=== PATIENT | female | born 1930 | race Caucasian/White ===

== ENCOUNTER 2017-02-16 12:48 | Inpatient (IN) | payer MEDICARE ==
[2017-02-16] MEDS ORDERED: Sodium Chloride 0.9% 10 ML Syringe FLUSH PRN (12:58)
[2017-02-16] MEDS ORDERED: Albuterol/Ipratropium 3.0-0.5 MG/3 ML Neb Soln NEB ONE (12:58)
[2017-02-16] MEDS ORDERED: Lactated Ringers 1,000 ML IV ONE (13:10)
--- NOTE | 2017-02-16 13:17 | EDM.PDOC ---
<TyrelLucila F - Last Filed: 02/16/17 14:13> ED HPI GENERAL MEDICAL PROBLEM - General Chief Complaint: Respiratory Problem Stated Complaint: [facility] Time Seen by Provider: 02/16/17 12:50 Source of Information: Reports: Patient History Limitations: Reports: No Limitations - History of Present Illness INITIAL COMMENTS - FREE TEXT/NARRATIVE: 86 year old female presents via [facility] ambulance service for evaluation and treatment of shortness of breath. Patient is unable to provide any reliable history. She is currently denying any pain. Grimaces and expresses pain with movement, reportedly has a history of RA. Reportedly the patient resides at [facility] [place]. States she has been having difficulty breathing since this morning. They appreciated 2+ pitting edema and crackles to the bilateral lung bases. No fevers, vomiting or diarrhea. Ambulance gave 40mg IV lasix and oxygen via mask at 8L/min. Per group home report temp was 93 there. Patient is a DNR, DNI. Treatments FACILITY SECURITY OFFICER: Reports: IV/IO - Related Data Allergies Allergy/AdvReac Type Severity Reaction Status Date / Time Beta-Blockers Allergy Cannot Verified 02/16/17 12:58 (Beta-Adrenergic Bloc Remember NSAIDS (Non-Steroidal Allergy Cannot Verified 02/16/17 12:58 Anti-Inflamma Remember nystatin Allergy Cannot Verified 02/16/17 12:58 Remember [id number]-[id number] Reductase Allergy Cannot Verified 02/16/17 12:58 Inhibitor Remember Sulfa (Sulfonamide Allergy Cannot Verified 02/16/17 12:58 Antibiotics) Remember Home Meds: Home Meds Acetaminophen 100 mg PO TID 02/16/17 [History] Fluticasone Propionate [Flonase] 2 spray NASBOTH DAILY 02/16/17 [History] Fluticasone Propionate [Flovent] 02/16/17 [History] Folic Acid 1 mg PO 02/16/17 [History] Furosemide 40 mg PO 02/16/17 [History] Irbesartan 300 mg PO 02/16/17 [History] LORazepam 02/16/17 [History] Latanoprost [Xalatan 0.005% Ophth Soln] 2.5 ml EYEBOTH BEDTIME 02/16/17 [History ] Leflunomide [Arava] 20 mg PO DAILY 02/16/17 [History] Levothyroxine Sodium [Synthroid] 100 mcg PO 02/16/17 [History] Magnesium Hydroxide [Milk of Magnesia] 30 ml PO DAILY 02/16/17 [History] Metoprolol Tartrate 25 mg PO 02/16/17 [History] Multivitamin [Multivitamins] 02/16/17 [History] Omeprazole 20 mg PO DAILY 02/16/17 [History] Potassium Chloride 10 meq PO 02/16/17 [History] Simvastatin [Zocor] 20 mg PO BEDTIME 02/16/17 [History] Spironolactone [Aldactone] 25 mg PO 02/16/17 [History] busPIRone [Buspar] 10 mg PO TID 02/16/17 [History] risperiDONE [Risperdal] 0.5 mg PO 02/16/17 [History] ED ROS GENERAL - Review of Systems Review Of Systems: See Below Constitutional: Denies: Fever Respiratory: Reports: Shortness of Breath, Wheezing Cardiovascular: Reports: Edema GI/Abdominal: Denies: Diarrhea, Vomiting ED EXAM, GENERAL - Physical Exam Exam: See Below Exam Limited By: Altered Mental Status General Appearance: Lethargic, Moderate Distress, Thin Ears: Normal External Exam Nose: Normal Inspection Throat/Mouth: Normal Inspection, Normal Voice, No Airway Compromise Respiratory/Chest: Rhonchi (right lung base), Wheezing Cardiovascular: Normal Peripheral Pulses, Regular Rate, Rhythm, No Murmur, Other (1+ pitting edema bilaterally) Rectal (Female) Exam: Heme + Stool Back Exam: Normal Inspection Extremities: Pedal Edema Skin Exam: Ecchymosis (bilateral thighs and left buttocks) Course - Vital Signs Last Recorded V/S: Last Vital Signs Temp 89.6 F L 02/16/17 12:58 Pulse 60 02/16/17 12:58 Resp 20 02/16/17 12:58 BP 61/45 L 02/16/17 12:58 Pulse Ox 93 L 02/16/17 13:15 - Orders/Labs/Meds Orders: Active Orders 24 hr Category Date Time Status Cardiac Monitoring [RC] . DIRECTED Care 02/16/17 12:58 Active EKG Documentation Completion [RC] ASDIRECTED Care 02/16/17 12:59 Active Oxygen Therapy [RC] ASDIRECTED Care 02/16/17 12:58 Active Peripheral IV Care [RC] . DIRECTED Care 02/16/17 12:59 Active RT Aerosol Therapy [RC] ASDIRECTED Care 02/16/17 12:59 Active Chest 1V Frontal [CR] Stat Exams 02/16/17 12:58 Taken C-REACTIVE PROTEIN [CHEM] Stat Lab 02/16/17 13:45 Results COMPREHENSIVE METABOLIC PN,CMP [CHEM] Stat Lab 02/16/17 13:45 Results CULTURE BLOOD [BC] Stat Lab 02/16/17 13:45 Received CULTURE BLOOD [BC] Stat Lab 02/16/17 14:00 Received LACTIC ACID [CHEM] Stat Lab 02/16/17 13:28 Ordered PATIENT RETYPE [BBK] Stat Lab 02/16/17 14:00 Results PRO B-TYPE NATRIUR PEPT,BNPPRO [CHEM] Stat Lab 02/16/17 13:45 Results RED BLOOD CELLS LP [BBK] Stat Lab 02/16/17 14:00 Results TROPONIN I [CHEM] Stat Lab 02/16/17 13:45 Results TYPE AND SCREEN [BBK] Stat Lab 02/16/17 14:00 Results UA W/MICROSCOPIC [URIN] Stat Lab 02/16/17 15:14 Uncollected Insulin Regular, Human [HumuLIN R] Med 02/16/17 16:00 Active 10 unit SUBCUT BIDAC Norepinephrine [Levophed] 4 mg Med 02/16/17 14:45 Active Dextrose 5% in Water 246 ml IV TITRATE Sodium Chloride 0.9% [Saline Flush] Med 02/16/17 12:58 Active 10 ml FLUSH ASDIRECTED PRN Blood Culture x2 Reflex Set [OM.PC] Stat Oth 02/16/17 13:28 Ordered Peripheral IV Insertion Adult [OM.PC] Routine Oth 02/16/17 12:58 Ordered Transfuse Red Blood Cells [COMM] Stat Oth 02/16/17 14:27 Ordered EKG 12 Lead [EK] Stat Ther 02/16/17 12:58 Ordered Medication Orders Norepinephrine Bitartrate 4 mg (/ Dextrose/Water) 250 mls @ 7.5 mls/hr IV TITRATE DEMETRI; 2 MCG/MIN PRN Reason: Protocol Insulin Human Regular (Humulin R) 10 unit SUBCUT BIDAC DEMETRI PRN Reason: Protocol Last Admin: 02/16/17 15:10 Dose: 10 unit Sodium Chloride (Saline Flush) 10 ml FLUSH ASDIRECTED PRN PRN Reason: Keep Vein Open Last Admin: 02/16/17 13:29 Dose: 10 ml Labs: Laboratory Tests 02/16/17 02/16/17 02/16/17 Range/Units 13:45 13:45 14:00 WBC 14.93 H (3.98-10.04) K/mm3 RBC 2.64 L (3.98-5.22) M/mm3 Hgb 7.9 L (11.2-15.7) gm/L Hct 25.3 L (34.1-44.9) % MCV 95.8 H (79.4-94.8) fl MCH 29.9 (25.6-32.2) pg MCHC 31.2 L (32.2-35.5) g/dl RDW Std Deviation 54.6 H (36.4-46.3) fL Plt Count 119 L (182-369) K/mm3 MPV 9.6 (9.4-12.3) fl Neutrophils % (Manual) 90 H (40-60) % Band Neutrophils % 1 (0-10) % Lymphocytes % (Manual) 4 L (20-40) % Atypical Lymphs % 0 % Monocytes % (Manual) 5 (2-10) % Eosinophils % (Manual) 0 L (0.7-5.8) % Basophils % (Manual) 0 L (0.1-1.2) Platelet Estimate Decreased Plt Morphology Comment Normal Poikilocytosis 1+ slight Anisocytosis 2+ moderate Microcytosis 1+ slight Macrocytosis 1+ slight Ovalocytes 1+ slight RBC Morph Comment Abnormal PT 12.6 (8.0-13.0) SECONDS INR 1.15 APTT 43 H (22-36) SECONDS Sodium 141 (136-145) mEq/L Potassium 6.6 H* (3.5-5.1) mEq/L Chloride 109 H (98-107) mEq/L Carbon Dioxide 14 L (21-32) mEq/L Anion Gap 24.6 H (5-15) BUN 111 H (7-18) mg/dL Creatinine 3.6 H (0.55-1.02) mg/dL Est Cr Clr Drug Dosing 8.31 mL/min Estimated GFR (MDRD) 12 (>60) mL/min BUN/Creatinine Ratio 30.8 H (14-18) Glucose 103 (83-115) mg/dL Calcium 7.6 L (8.5-10.1) mg/dL Total Bilirubin 0.3 (0.2-1.0) mg/dL AST 21 (15-37) U/L ALT 26 (14-59) U/L Alkaline Phosphatase 92 (46-116) U/L Troponin I < 0.017 (0.00-0.056) ng/mL C-Reactive Protein 4.7 H* (<1.0) mg/dL Total Protein 5.1 L (6.4-8.2) g/dl Albumin 2.3 L (3.4-5.0) g/dl Globulin 2.8 gm/dL Albumin/Globulin Ratio 0.8 L (1-2) Blood Type Gel Antibody Screen Crossmatch 02/16/17 Range/Units 14:00 WBC (3.98-10.04) K/mm3 RBC (3.98-5.22) M/mm3 Hgb (11.2-15.7) gm/L Hct (34.1-44.9) % MCV (79.4-94.8) fl MCH (25.6-32.2) pg MCHC (32.2-35.5) g/dl RDW Std Deviation (36.4-46.3) fL Plt Count (182-369) K/mm3 MPV (9.4-12.3) fl Neutrophils % (Manual) (40-60) % Band Neutrophils % (0-10) % Lymphocytes % (Manual) (20-40) % Atypical Lymphs % % Monocytes % (Manual) (2-10) % Eosinophils % (Manual) (0.7-5.8) % Basophils % (Manual) (0.1-1.2) Platelet Estimate Plt Morphology Comment Poikilocytosis Anisocytosis Microcytosis Macrocytosis Ovalocytes RBC Morph Comment PT (8.0-13.0) SECONDS INR APTT (22-36) SECONDS Sodium (136-145) mEq/L Potassium (3.5-5.1) mEq/L Chloride (98-107) mEq/L Carbon Dioxide (21-32) mEq/L Anion Gap (5-15) BUN (7-18) mg/dL Creatinine (0.55-1.02) mg/dL Est Cr Clr Drug Dosing mL/min Estimated GFR (MDRD) (>60) mL/min BUN/Creatinine Ratio (14-18) Glucose (83-115) mg/dL Calcium (8.5-10.1) mg/dL Total Bilirubin (0.2-1.0) mg/dL AST (15-37) U/L ALT (14-59) U/L Alkaline Phosphatase (46-116) U/L Troponin I (0.00-0.056) ng/mL C-Reactive Protein (<1.0) mg/dL Total Protein (6.4-8.2) g/dl Albumin (3.4-5.0) g/dl Globulin gm/dL Albumin/Globulin Ratio (1-2) Blood Type O NEGATIVE Gel Antibody Screen Negative Crossmatch See Detail Meds: Medications Generic Name Dose Route Start Last Admin Trade Name Freq PRN Reason Stop Dose Admin Norepinephrine Bitartrate 4 mg 250 mls @ 7.5 mls/hr 02/16/17 14:45 / Dextrose/Water IV TITRATE DEMETRI Protocol 2 MCG/MIN Insulin Human Regular 10 unit 02/16/17 16:00 02/16/17 15:10 Humulin R SUBCUT 10 unit BIDAC DEMETRI Administration Protocol Sodium Chloride 10 ml 02/16/17 12:58 02/16/17 13:29 Saline Flush FLUSH 10 ml ASDIRECTED PRN Administration Keep Vein Open Discontinued Medications Generic Name Dose Route Start Last Admin Trade Name Freq PRN Reason Stop Dose Admin Albuterol/Ipratropium 3 ml 02/16/17 12:58 02/16/17 13:15 Duoneb 3.0-0.5 Mg/3 Ml NEB 02/16/17 12:59 3 ml ONETIME ONE Administration Calcium Gluconate 1 gm 02/16/17 14:45 02/16/17 15:17 Calcium Gluconate IVPUSH 02/16/17 14:46 1 gm ONETIME ONE Administration Dextrose/Water 50 ml 02/16/17 14:44 02/16/17 15:12 Dextrose 50% In Water IVPUSH 02/16/17 14:45 50 ml ONETIME ONE Administration Lactated Ringer's 1,000 mls @ 999 mls/hr 02/16/17 13:10 02/16/17 13:29 Ringers, Lactated IV 02/16/17 14:10 999 mls/hr .BOLUS ONE Administration Sodium Chloride 750 mls @ 1,000 mls/hr 02/16/17 13:31 Normal Saline IV 02/16/17 14:15 .BOLUS ONE Levofloxacin/Dextrose 750 mg/ 150 mls @ 100 mls/hr 02/16/17 13:55 02/16/17 14 :11 Premix IV 02/16/17 15:24 100 mls/hr ONETIME ONE Administration Sodium Chloride Confirm 02/16/17 14:06 Normal Saline Administered 02/16/17 14:07 Dose 1,000 mls @ as directed .ROUTE .STK-MED ONE Levofloxacin/Dextrose Confirm 02/16/17 14:07 Levaquin In D5w 750 Mg/150 Ml Administered 02/16/17 14:08 Dose 150 mls @ as directed IV .STK-MED ONE Sodium Chloride Confirm 02/16/17 15:27 Normal Saline Administered 02/16/17 15:28 Dose 1,000 mls @ as directed .ROUTE .STK-MED ONE - Re-Assessments/Exams Free Text/Narrative Re-Assessment/Exam: 02/16/17 14:00 Patient is critically ill. Care transferred to Dr. Hung. Departure - Departure Disposition: Admitted As Inpatient 65 Clinical Impression: Septic shock, Hyperkalemia Pneumonia Qualifiers: Pneumonia type: due to unspecified organism Laterality: right Lung location: middle lobe of lung Qualified Code(s): J18.1 - Lobar pneumonia, unspecified organism Hypotension Qualifiers: Hypotension type: unspecified hypotension type Qualified Code(s): I95.9 - Hypotension, unspecified Anemia Qualifiers: Anemia type: other cause Other causes of anemia: other cause, not classified Qualified Code(s): D64.89 - Other specified anemias Renal failure Qualifiers: Renal failure chronicity: acute Acute renal failure type: unspecified Qualified Code(s): N17.9 - Acute kidney failure, unspecified - Discharge Information Referrals: Osorio Walden MD [Primary Care Provider] - Forms: ED Department Discharge - My Orders Last 24 Hours: My Active Orders 02/16/17 14:00 PATIENT RETYPE [BBK] Stat RED BLOOD CELLS LP [BBK] Stat TYPE AND SCREEN [BBK] Stat 02/16/17 14:27 Transfuse Red Blood Cells [COMM] Stat 02/16/17 14:45 Norepinephrine [Levophed] 4 mg Dextrose 5% in Water 246 ml IV TITRATE 02/16/17 15:14 UA W/MICROSCOPIC [URIN] Stat 02/16/17 16:00 Insulin Regular, Human [HumuLIN R] 10 unit SUBCUT BIDAC - Assessment/Plan Last 24 Hours: My Active Orders 02/16/17 14:00 PATIENT RETYPE [BBK] Stat RED BLOOD CELLS LP [BBK] Stat TYPE AND SCREEN [BBK] Stat 02/16/17 14:27 Transfuse Red Blood Cells [COMM] Stat 02/16/17 14:45 Norepinephrine [Levophed] 4 mg Dextrose 5% in Water 246 ml IV TITRATE 02/16/17 15:14 UA W/MICROSCOPIC [URIN] Stat 02/16/17 16:00 Insulin Regular, Human [HumuLIN R] 10 unit SUBCUT BIDAC <Anurag Hung - Last Filed: 02/16/17 15:31> Course - Re-Assessments/Exams Free Text/Narrative Re-Assessment/Exam: 02/16/17 15:15 Taking over for Lucila. I ordered a 30mL/kg bolus or 1700mls. She is septic. It appears she has pneumonia in the right lung. Her WBC is elevated at 14.93. Her Hgb was low at 7.9. I have ordered 1 unit of blood. Her PT is elevated at 12.6. Her INR was elevated at 1.15. Her K was elevated at 6.6. She was give a duoneb treatment. I also ordered D50 25mg IV, insulin 10 units subcutaneous and calcium gluconate. She is not alert enough to take the kayexelate. She is in renal failure. Her creatinine is elevated at 3.6. Her troponin is negative. Her CRP is elevated at 4.7. She has pneumonia and sepsis and she is in renal failure with hyperkalemia. 02/16/17 15:26 I feel she needs to be admitted. I called Dr Haynes and he agreed to the admission. I have also ordered some norephinephrin. Her BP went up for a short time and then it went down again. I do not have a urine back but we will get a sample. Departure - Departure Time of Disposition: 15:30 Condition: Serious
[2017-02-16] MEDS ORDERED: Sodium Chloride 0.9% 750 ML IV ONE (13:31)
[2017-02-16] MEDS ORDERED: Levofloxacin/Dextrose 5%-Water 750 MG in Premix Bag 1 BAG IV ONE (13:55)
[2017-02-16] MEDS ORDERED: Sodium Chloride 0.9% 1,000 ML ONE ×2 (14:06→15:27)
[2017-02-16] MEDS ORDERED: Levofloxacin/Dextrose 5%-Water 150 ML IV ONE (14:07)
[2017-02-16] MEDS ORDERED: 50% Dextrose in Water 50 ML Syringe IVPUSH ONE (14:44)
[2017-02-16] MEDS ORDERED: Calcium Gluconate 10% 1 GM/10 ML SDV IVPUSH ONE (14:45)
[2017-02-16] MEDS: Norepinephrine 4 MG in Dextrose 5% in Water 246 ML IV SCH ×2 (15:25)
[2017-02-16] MEDS ORDERED: Sodium Chloride 0.9% 1,000 ML IV SCH (15:30)
[2017-02-16] MEDS ORDERED: Insulin Regular, Human 100 Units/ML 3 ML Vial SUBCUT SCH (16:00)
--- NOTE | 2017-02-16 17:10 | PCM.HP ---
H&P History of Present Illness - General Date of Service: 02/16/17 Source of Information: Patient, Family, Provider, RN, RN Notes Reviewed History Limitations: Reports: Altered Mental Status - History of Present Illness Initial Comments - Free Text/Narative: Johnson Lyles is an 86 yo female who presented to our ED today on 02/16/17 via [facility] from [facility] for shortness of breath. Patient has AMS and is unable to provide any reliable history in the ED, but she denies any pain. She reportedly grimaces and expresses pain with movement. She does have a prior hx/o RA. [facility] reports increasing difficulty with breathing since this AM with 2+ pitting edema and crackles bilaterally in the lung bases. No fever, vomiting, diarrhea. heel caser gave 40mg IVP lasix and started O2 via simple mask at 8L. [facility] reports a temperature of 93. In the ED temp was found to be 89.6 Fahrenheit. Pulse 60. Respirations 20. BP 61/45. Pulse ox 93. Labs were obtained: WC is 14.93. Hemoglobin is low at 7.9. Hematocrit 25.3. MCV is slightly elevated 95.8. Platelets are low at 119 ,000. Neutrophils are elevated at 90%. Band neutrophils are 1%. There is 1+ poikilocytosis, microcytosis, macrocytosis, and ovalocytes. 2+ anisocytosis is noted. PT is 12.6. INR is elevated at 1.15. APTT is high at 43. Sodium is normal at 141. Potassium was very high at 6.6. Chloride is 109. Carbon dioxide is 14. Anion gap is very high at 24.6. BUN is 111. Creatinine is 3.6. EGFR is 12. Glucose 103. Calcium 7.6. Total bilirubin 0.3. Liver enzymes good with AST at 21, ALT at 26, alkaline phosphatase and 92. Troponin is negative at less than 0.017. CRP is high at 4.7. Protein is low at 5.1. Albumin is low at 2.3. Pro-BNP is 2506. She was typed and screened with O- blood type and negative gel antibody screen. She is given a 30 mL/kg bolus or 1700 mL. She is septic. Chest x-ray appears to show pneumonia the right lung. She was given 1 unit of blood. She is given a DuoNeb treatment as well as 25 mg of IV D50. 10 units of subcutaneous insulin and calcium gluconate were given. It is noted she is not alert enough to take Kayexalate. UA shows 1+ protein and many bacteria, however leukocyte esterase and nitrite were negative. There were 0-5 WBCs noted as well. Lactic acid is 1.8. Norepinephrine drip was started as was Levaquin 750 mg in D5W. She was found to have heme positive stool on her ED rectal exam. Blood cultures were also obtained. She carries a history of: Anemia, Hypothyroidism, HLD, Hypokalemia, Dementia, Mild cognitive impairment, Insomnia, glucoma, HTN, CAD, heart failure, GERD, RA , OA, lower back pain, visual hallucinations, lung ca, and TIA. She recently moved into [facility] and was being seen by Dr. Grullon in [place] [employer]. Code status is DNR. Her PCP is Dr. Walden at [facility] in [place]. - Related Data Allergies/Adverse Reactions: Allergies Allergy/AdvReac Type Severity Reaction Status Date / Time Beta-Blockers Allergy Cannot Verified 02/16/17 12:58 (Beta-Adrenergic Bloc Remember NSAIDS (Non-Steroidal Allergy Cannot Verified 02/16/17 12:58 Anti-Inflamma Remember nystatin Allergy Cannot Verified 02/16/17 12:58 Remember Zmvlsoy-Yxu-Vpj Reductase Allergy Cannot Verified 02/16/17 12:58 Inhibitor Remember Sulfa (Sulfonamide Allergy Cannot Verified 02/16/17 12:58 Antibiotics) Remember Home Medications: Home Meds Acetaminophen 100 mg PO TID 02/16/17 [History] Fluticasone Propionate [Flonase] 2 spray NASBOTH DAILY 02/16/17 [History] Folic Acid 1 mg PO DAILY 02/16/17 [History] Furosemide 40 mg PO DAILY 02/16/17 [History] Irbesartan 300 mg PO BEDTIME 02/16/17 [History] LORazepam 0.5 mg PO Q6HR PRN 02/16/17 [History] Latanoprost [Xalatan 0.005% Oph Soln] 1 drop EYEBOTH BEDTIME 02/16/17 [History ] Leflunomide [Arava] 20 mg PO DAILY 02/16/17 [History] Levothyroxine Sodium [Synthroid] 100 mcg PO DAILY 02/16/17 [History] Magnesium Hydroxide [Milk of Magnesia] 15 ml PO DAILY PRN 02/16/17 [History] Metoprolol Tartrate 25 mg PO BID 02/16/17 [History] Multivitamin [Multivitamins] 1 tab PO DAILY 02/16/17 [History] Omeprazole 40 mg PO DAILY 02/16/17 [History] Potassium Chloride 10 meq PO DAILY 02/16/17 [History] Simvastatin [Zocor] 20 mg PO BEDTIME 02/16/17 [History] Spironolactone [Aldactone] 25 mg PO DAILY 02/16/17 [History] busPIRone [Buspar] 10 mg PO TID 02/16/17 [History] risperiDONE [Risperdal] 0.5 mg PO TID 02/16/17 [History] Past Medical History Neurological History: Reports: Alzheimers Disease Social & Family History - Tobacco Use Smoking Status *Q: Unknown Ever Smoked H&P Review of Systems - Review of Systems: Review Of Systems: Unable To Obtain Free Text/Narrative: Patient is demented and unable to provide a reliable history. Exam - Exam Exam: See Below - Vital Signs Vital Signs: Last Vital Signs Temp 96.2 F 02/16/17 16:05 Pulse 90 02/16/17 16:05 Resp 16 02/16/17 16:05 BP 94/77 02/16/17 16:05 Pulse Ox 93 L 02/16/17 13:15 Weight: 125 lb - Exam Quality Assessment: Supplemental Oxygen, Urinary Catheter, DVT Prophylaxis General: Alert, Cooperative, Mild Distress, Lethargic (family reports she is usually more active and alert than she is now. She does respond to my questions. ). No: Oriented HEENT: Conjunctiva Clear, EACs Clear, EOMI, Hearing Intact, Mucosa Moist & [place] , Nares Patent, Normal Nasal Septum, Posterior Pharynx Clear, PERRLA Neck: Supple, Trachea Midline. No: Carotid Bruit, JVD Lungs: Normal Respiratory Effort, Decreased Breath Sounds, Rhonchi (right base ) , Wheezing Cardiovascular: Regular Rate, Regular Rhythm. No: Systolic Murmur, Diastolic Murmur GI/Abdominal Exam: Normal Bowel Sounds, Soft, No Organomegaly, No Distention, No Abnormal Bruit, No Mass, Pelvis Stable, Tender (Grimace on deep palpitaiton to epigastric region) (Female) Exam: Deferred Rectal (Female) Exam: Deferred Extremities: Normal Inspection, Normal Range of Motion, Non-Tender, Normal Capillary Refill, Pedal Edema (trace to 1+) Peripheral Pulses: 1+: Posterior Tibial (L), Posterior Tibial (R), Dorsalis Pedis (L), Dorsalis Pedis (R), 2+: Radial (L), Radial (R) Skin: Warm, Dry, Intact Neurological: Cranial Nerves Intact (Grossly) Neuro Extensive - Mental Status: Alert Psychiatric: Alert - Patient Data Result Diagrams: 02/16/17 14:00 02/16/17 13:45 *Q Meaningful Use (ADM) - VTE *Q VTE Criteria *Q: - Stroke *Q Stroke Criteria *Q: - AMI *Q AMI Criteria *Q: - Problem List (1) Septic shock SNOMED Code(s): 39554755 ICD Code: A41.9 - SEPSIS, UNSPECIFIED ORGANISM; R65.21 - SEVERE SEPSIS WITH SEPTIC SHOCK Status: Acute Priority: High Current Visit: Yes (2) Hyperkalemia SNOMED Code(s): 54390495 ICD Code: E87.5 - HYPERKALEMIA Status: Acute Priority: High Current Visit: Yes (3) Renal failure SNOMED Code(s): 20211758 ICD Code: N19 - UNSPECIFIED KIDNEY FAILURE Status: Acute Priority: High Current Visit: Yes Qualifiers: Renal failure chronicity: acute Acute renal failure type: unspecified Qualified Code(s): N17.9 - Acute kidney failure, unspecified (4) Pneumonia SNOMED Code(s): 063122491 ICD Code: J18.9 - PNEUMONIA, UNSPECIFIED ORGANISM Status: Acute Priority : High Current Visit: Yes Qualifiers: Pneumonia type: due to unspecified organism Laterality: right Lung location: middle lobe of lung Qualified Code(s): J18.1 - Lobar pneumonia, unspecified organism (5) Hypotension SNOMED Code(s): 23748457 ICD Code: I95.9 - HYPOTENSION, UNSPECIFIED Status: Acute Priority: High Current Visit: Yes Qualifiers: Hypotension type: unspecified hypotension type Qualified Code(s): I95.9 - Hypotension, unspecified (6) Anemia SNOMED Code(s): 959256714 ICD Code: D64.9 - ANEMIA, UNSPECIFIED Status: Acute Priority: High Current Visit: Yes Qualifiers: Anemia type: other cause Other causes of anemia: other cause, not classified Qualified Code(s): D64.89 - Other specified anemias (7) Hypothyroidism SNOMED Code(s): 70078160 ICD Code: E03.9 - HYPOTHYROIDISM, UNSPECIFIED Status: Chronic Priority: Low Current Visit: No Qualifiers: Hypothyroidism type: acquired Qualified Code(s): E03.9 - Hypothyroidism, unspecified (8) HLD (hyperlipidemia) SNOMED Code(s): 31524773 ICD Code: E78.5 - HYPERLIPIDEMIA, UNSPECIFIED Status: Chronic Priority: Low Current Visit: No Qualifiers: Hyperlipidemia type: pure hypercholesterolemia Qualified Code(s): E78.00 - Pure hypercholesterolemia, unspecified; E78.0 - Pure hypercholesterolemia (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 SNOMED Code(s): 247171 ICD Code: F10.97 - ALCOHOL USE, UNSP WITH ALCOHOL-INDUCED PERSISTING DEMENTIA Status: Chronic Priority: Low Current Visit: No (10) Mild cognitive impairment SNOMED Code(s): 032462481 ICD Code: G31.84 - MILD COGNITIVE IMPAIRMENT, SO STATED Status: Chronic Priority: Low Current Visit: No (11) Insomnia SNOMED Code(s): 883239312 ICD Code: G47.00 - INSOMNIA, UNSPECIFIED Status: Chronic Priority: Low Current Visit: No Qualifiers: Insomnia type: primary Qualified Code(s): F51.01 - Primary insomnia (12) Glaucoma SNOMED Code(s): 10598879 ICD Code: H40.9 - UNSPECIFIED GLAUCOMA Status: Chronic Priority: Low Current Visit: No Qualifiers: Glaucoma type: unspecified Laterality: unspecified laterality Qualified Code(s): H40.9 - Unspecified glaucoma (13) HTN (hypertension) SNOMED Code(s): 83286295 ICD Code: I10 - ESSENTIAL (PRIMARY) HYPERTENSION Status: Chronic Priority : Low Current Visit: No (14) CAD (coronary artery disease) SNOMED Code(s): 34016712 ICD Code: I25.10 - ATHSCL HEART DISEASE OF [place] CORONARY ARTERY W/O ANG PCTRS Status: Chronic Priority: Low Current Visit: No Qualifiers: Coronary Disease-Associated Artery/Lesion type: [place] artery [place] vs. transplanted heart: [place] heart Associated angina: angina presence unspecified Qualified Code(s): I25.10 - Atherosclerotic heart disease of [place] coronary artery without angina pectoris (15) Heart failure SNOMED Code(s): 49484447 ICD Code: I50.9 - HEART FAILURE, UNSPECIFIED Status: Acute Priority: Medium Current Visit: Yes Qualifiers: Heart failure type: unspecified heart failure type Heart failure chronicity : acute on chronic Qualified Code(s): I50.9 - Heart failure, unspecified (16) GERD (gastroesophageal reflux disease) SNOMED Code(s): 575958369 ICD Code: K21.9 - GASTRO-ESOPHAGEAL REFLUX DISEASE WITHOUT ESOPHAGITIS Status: Chronic Priority: Low Current Visit: No Qualifiers: Esophagitis presence: without esophagitis Qualified Code(s): K21.9 - Gastro -esophageal reflux disease without esophagitis (17) Rheumatoid arteritis SNOMED Code(s): 571391865 ICD Code: I00 - RHEUMATIC FEVER WITHOUT HEART INVOLVEMENT Status: Chronic Priority: Low Current Visit: No (18) Osteoarthritis SNOMED Code(s): 280453633 ICD Code: M19.90 - UNSPECIFIED OSTEOARTHRITIS, UNSPECIFIED SITE Status: Chronic Priority: Low Current Visit: No Qualifiers: Osteoarthritis location: unspecified site Osteoarthritis type: primary Qualified Code(s): M19.91 - Primary osteoarthritis, unspecified site (19) Low back pain SNOMED Code(s): 728994518 ICD Code: M54.5 - LOW BACK PAIN Status: Chronic Priority: Low Current Visit: No Qualifiers: Chronicity: unspecified Back pain laterality: unspecified Sciatica presence: unspecified whether sciatica present Qualified Code(s): M54.5 - Low back pain (20) Visual hallucinations SNOMED Code(s): 09318860 ICD Code: R44.1 - VISUAL HALLUCINATIONS Status: Chronic Priority: Low Current Visit: No Problem List Initiated/Reviewed/Updated: Yes Orders Last 24hrs: Active Orders 24 hr Category Date Time Status Insert Wagner Catheter [Insert Urinary Catheter] [OM.PC] Care 02/16/17 16:28 Ordered Q24H Urinary Catheter Assessment [RC] ASDIRECTED Care 02/16/17 16:37 Active Medication Orders Norepinephrine Bitartrate 4 mg (/ Dextrose/Water) 250 mls @ 7.5 mls/hr IV TITRATE DEMETRI; 2 MCG/MIN PRN Reason: Protocol Last Titration: 02/16/17 16:22 Dose: 4 mcg/min, 15 mls/hr Titration: 02/16/17 15:40 Dose: 3 mcg/min, 11.25 mls/hr Admin: 02/16/17 15:25 Dose: 2 mcg/min, 7.5 mls/hr Insulin Human Regular (Humulin R) 10 unit SUBCUT BIDAC DEMETRI PRN Reason: Protocol Last Admin: 02/16/17 15:10 Dose: 10 unit Sodium Chloride (Saline Flush) 10 ml FLUSH ASDIRECTED PRN PRN Reason: Keep Vein Open Last Admin: 02/16/17 13:29 Dose: 10 ml Assessment/Plan Comment:: I/P: Acute Septic shock -2/2 pneumonia -Hypotensive -Rales in right lower lobe -Hypothermic on arrival -89.6 F rectally -Vero hugger in place -WBC 14.93 -CRP 4.7 -UA negative -INR 1.15 -APTT 43 -Blood cultures - pending -Serum cortisol level - ordered -procalcitonin - ordered -1700 ml fluid bolus in ED -Levaquin 750 given in ED - continue -Vancomycin - pharmacy to dose -Solu-cortif Q6 -Fluids as ordered -NPO -Critical patient - strict I&O -Wagner in place Pneumonia -Increasing SOB reported by [place] and family -Risk factors: Confusion from dementia (? aspiration), Hx/o lung ca with resection, Lives in specialty SNF -CXR in ED shows right middle lobe pneumonia -RT to assess and treat/IS -f/u cxr in 48 hrs -Oxygen as needed - titrate Anion gap metabolic acidosis -2/2 sepsis -Anion gap 24.6 -Carbon Dioxide 14 -Fluids as ordered Hyperkalemia -Potassium 6.6 in ED -1gm calcium gluconate given in ED -10 unit humulin given in ED -1700ml fluid bolus given in ED -45gm Kayexalate rectally now -Given 40mg lasix by EMS crew -Hx/o hypokalemia -Unable to give lasix due to poor renal function Renal failure -Acute on chronic -Unsure of baseline - obtain old records -BUN 111 -Creatinine 3.6 -eGFR 12 -Pharmacy to renally dose medications -Hold nephrotoxic drugs -Fluids -Renal ultrasound to rule out obstructive uropathy -Monitor I&O - wagner in place Hypotension -2/2 above -BP 61/45 on arrival -HR 60 -Fluid bolus given in ED -Fluids as ordered -Norepinephrine drip - titrate per protocol Heart failure -Acute on chronic -Unsure of baseline - obtain old records -Pro-BNP 2506 -Echo ordered -Monitor as aggressive fluid resuscitation is needed 2/2 above Anemia -Acute on chronic -Unsure of baseline - obtain old records -Hgb 7.9 -Hct 25.3 -Heme + stool in ED -INR 1.15 -APTT 43 -No reported hematemesis, melena, hematochezia. -1 unit PRBCs given in ED - will order one more unit -Monitor H&H -Consider surgical consult Chronic: Hypothyroidism HLD Hypokalemia - hyperkalemic today Dementia w/o behavioral disturbance Mild cognitive impairment Insomnia Glaucoma CAD GERD RA Lower back pain OA Visual hallucinations Hx/o TIA Hx/o CA Hx/o lung neoplasm with lobectomy Plan: Admit to ICU CM/SW for discharge planning Spiritual care PT/OT Other orders as indicated above Home medications as ordered Routine AM labs GI Prophylaxis protonix DVT/PE prophylaxis: SCDs, ambulation as tolerated. Code status: DNR. Her PCP is Dr. Walden at [facility]. She recently transferred care from Dr. Grullon in [place] [employer].
[2017-02-16] MEDS ORDERED: Vancomycin 1 GM, Vancomycin 500 MG in Sodium Chloride 0.9% 500 ML IV SCH (18:00)
[2017-02-16] MEDS ORDERED: LORazepam 2 MG/ML SDV IV PRN (18:11)
[2017-02-16] MEDS ORDERED: Ondansetron 4 MG/2 ML SDV IV PRN (18:11)
[2017-02-16] MEDS ORDERED: HYDROmorphone 1 MG/ML Syringe IVPUSH PRN (18:11)
[2017-02-16] MEDS ORDERED: Docusate Sodium 100 MG Cap PO PRN (18:11)
[2017-02-16] MEDS ORDERED: Polyethylene Glycol 3350 Powder 17 GM Packet PO PRN (18:11)
[2017-02-16] MEDS ORDERED: Promethazine 6.25 MG in Sodium Chloride 0.9% 50 ML IV PRN (18:11)
[2017-02-16] MEDS ORDERED: Acetaminophen/HYDROcodone 325-5 MG Tab PO PRN (18:11)
[2017-02-16] MEDS ORDERED: Pantoprazole 40 MG Vial IVPUSH ONE (18:11)
[2017-02-16] MEDS ORDERED: Acetaminophen 325 MG Tab PO PRN (18:11)
[2017-02-16] MEDS ORDERED: Bisacodyl 5 MG Tab PO PRN (18:11)
[2017-02-16] MEDS ORDERED: Sodium Polystyrene Sulfonate 15 GM/60 ML Susp 60 ML Bot RECTAL ONE (18:21)
[2017-02-16] MEDS: Hydrocortisone Sodium Succinate 100 MG/2 ML SDV IVPUSH SCH (18:49)
[2017-02-16] MEDS: Insulin Aspart 100 Units/ML 3 ML Pen SUBCUT SCH (19:06)
[2017-02-16] MEDS: 50% Dextrose in Water 50 ML Syringe IVPUSH PRN ×2 (19:10→22:22)
[2017-02-16] MEDS: Famotidine 20 MG/2 ML SDV IVPUSH SCH (21:43)
[2017-02-16] MEDS: Latanoprost 0.005% Ophth Soln 2.5 ML Bottle EYEBOTH SCH (21:51)
[2017-02-16] MEDS ORDERED: Calcium Carbonate 500 MG Tab.Chew PO ONE (22:27)
[2017-02-16] MEDS ORDERED: Bumetanide 1 MG/4 ML MDV IVPUSH ONE (22:28)
[2017-02-16] MEDS ORDERED: Dextrose 5%-0.9% NaCl 1,000 ML IV SCH (22:30)
[2017-02-16] MEDS ORDERED: Magnesium Sulfate/Water 50 ML IV ONE (23:15)
[2017-02-17] MEDS: Insulin Aspart 100 Units/ML 3 ML Pen SUBCUT SCH ×4 (00:53→18:52)
[2017-02-17] MEDS: Hydrocortisone Sodium Succinate 100 MG/2 ML SDV IVPUSH SCH ×3 (03:24→19:59)
[2017-02-17] MEDS ORDERED: Norepinephrine 4 MG/4 ML SDV ONE (04:44)
--- NOTE | 2017-02-17 07:23 | PCM.PN ---
- General Info Date of Service: 02/17/17 Admission Dx/Problem (Free Text): Septic Shock and PNA Subjective Update: Follow Up Functional Status: Reports: Pain Controlled, Urinating. Denies: Tolerating Diet , Ambulating, New Symptoms - Review of Systems General: Denies: Fever, Weakness, Fatigue, Malaise, Chills HEENT: Reports: No Symptoms Pulmonary: Reports: Shortness of Breath Cardiovascular: Denies: Chest Pain Gastrointestinal: Denies: Abdominal Pain, Nausea, Vomiting Genitourinary: Reports: No Symptoms Musculoskeletal: Reports: No Symptoms Skin: Denies: Pallor, Diaphoresis, Rash Neurological: Reports: Confusion. Denies: Difficulty Walking, Weakness, Gait Disturbance Psychiatric: Denies: Depression, Anxiety, Agitation, Hallucinations Systems Review Comment:: No significant overnight issues. She is partially responsive this morning. She responds to verbal calls and partially opens her eyes. Her labs are much better this morning. She remains afebrile since last night. - Patient Data Vitals - Most Recent: Last Vital Signs Temp 36.4 C 02/17/17 05:56 Pulse 78 02/17/17 07:01 Resp 13 02/17/17 07:01 BP 102/62 02/17/17 07:00 Pulse Ox 95 02/17/17 07:01 Weight - Most Recent: 64.274 kg I&O - Last 24 Hours: Intake & Output 02/16/17 02/17/17 02/17/17 22:59 06:59 14:59 Intake Total 858 303 Output Total 510 1075 Balance 348 -772 Lab Results Last 24 Hours: Laboratory Results - last 24 hr 02/16/17 02/16/17 02/16/17 Range/Units 17:10 19:09 19:27 WBC (3.98-10.04) K/mm3 RBC (3.98-5.22) M/mm3 Hgb (11.2-15.7) gm/L Hct (34.1-44.9) % MCV (79.4-94.8) fl MCH (25.6-32.2) pg MCHC (32.2-35.5) g/dl RDW Std Deviation (36.4-46.3) fL Plt Count (182-369) K/mm3 MPV (9.4-12.3) fl Neut % (Auto) (34.0-71.1) % Lymph % (Auto) (19.3-51.7) % [place] % (Auto) (4.7-12.5) % Eos % (Auto) (0.7-5.8) Baso % (Auto) (0.1-1.2) % Neut # (Auto) (1.56-6.13) K/mm3 Lymph # (Auto) (1.18-3.74) K/mm3 [place] # (Auto) (0.24-0.36) K/mm3 Eos # (Auto) (0.04-0.36) K/mm3 Baso # (Auto) (0.01-0.08) K/mm3 Sodium (136-145) mEq/L Potassium (3.5-5.1) mEq/L Chloride (98-107) mEq/L Carbon Dioxide (21-32) mEq/L Anion Gap (5-15) BUN (7-18) mg/dL Creatinine (0.55-1.02) mg/dL Est Cr Clr Drug Dosing mL/min Estimated GFR (MDRD) (>60) mL/min BUN/Creatinine Ratio (14-18) Glucose (83-115) mg/dL POC Glucose 65 L 149 H (83-110) mg/dL Calcium (8.5-10.1) mg/dL Magnesium (1.8-2.4) mg/dl C-Reactive Protein (<1.0) mg/dL MRSA (PCR) Negative 02/16/17 02/16/17 02/16/17 Range/Units 21:24 22:38 22:50 WBC (3.98-10.04) K/mm3 RBC (3.98-5.22) M/mm3 Hgb 10.8 L (11.2-15.7) gm/L Hct (34.1-44.9) % MCV (79.4-94.8) fl MCH (25.6-32.2) pg MCHC (32.2-35.5) g/dl RDW Std Deviation (36.4-46.3) fL Plt Count (182-369) K/mm3 MPV (9.4-12.3) fl Neut % (Auto) (34.0-71.1) % Lymph % (Auto) (19.3-51.7) % [place] % (Auto) (4.7-12.5) % Eos % (Auto) (0.7-5.8) Baso % (Auto) (0.1-1.2) % Neut # (Auto) (1.56-6.13) K/mm3 Lymph # (Auto) (1.18-3.74) K/mm3 [place] # (Auto) (0.24-0.36) K/mm3 Eos # (Auto) (0.04-0.36) K/mm3 Baso # (Auto) (0.01-0.08) K/mm3 Sodium 144 (136-145) mEq/L Potassium 6.2 H* (3.5-5.1) mEq/L Chloride 113 H (98-107) mEq/L Carbon Dioxide 14 L (21-32) mEq/L Anion Gap 23.2 H (5-15) BUN 97 H (7-18) mg/dL Creatinine 3.1 H (0.55-1.02) mg/dL Est Cr Clr Drug Dosing 9.65 mL/min Estimated GFR (MDRD) 14 (>60) mL/min BUN/Creatinine Ratio 31.3 H (14-18) Glucose 45 L (83-115) mg/dL POC Glucose 206 H (83-110) mg/dL Calcium 7.4 L (8.5-10.1) mg/dL Magnesium 1.5 L (1.8-2.4) mg/dl C-Reactive Protein (<1.0) mg/dL MRSA (PCR) 02/17/17 02/17/17 02/17/17 Range/Units 00:30 05:54 05:55 WBC 20.00 H (3.98-10.04) K/mm3 RBC 4.03 (3.98-5.22) M/mm3 Hgb 11.7 (11.2-15.7) gm/L Hct 35.7 (34.1-44.9) % MCV 88.6 (79.4-94.8) fl MCH 29.0 (25.6-32.2) pg MCHC 32.8 (32.2-35.5) g/dl RDW Std Deviation 59.1 H (36.4-46.3) fL Plt Count 120 L (182-369) K/mm3 MPV 10.2 (9.4-12.3) fl Neut % (Auto) 94.9 H (34.0-71.1) % Lymph % (Auto) 1.4 L (19.3-51.7) % [place] % (Auto) 3.3 L (4.7-12.5) % Eos % (Auto) 0 L (0.7-5.8) Baso % (Auto) 0.1 (0.1-1.2) % Neut # (Auto) 19.00 H (1.56-6.13) K/mm3 Lymph # (Auto) 0.27 L (1.18-3.74) K/mm3 [place] # (Auto) 0.66 H (0.24-0.36) K/mm3 Eos # (Auto) 0.00 L (0.04-0.36) K/mm3 Baso # (Auto) 0.01 (0.01-0.08) K/mm3 Sodium (136-145) mEq/L Potassium (3.5-5.1) mEq/L Chloride (98-107) mEq/L Carbon Dioxide (21-32) mEq/L Anion Gap (5-15) BUN (7-18) mg/dL Creatinine (0.55-1.02) mg/dL Est Cr Clr Drug Dosing mL/min Estimated GFR (MDRD) (>60) mL/min BUN/Creatinine Ratio (14-18) Glucose (83-115) mg/dL POC Glucose 126 H 113 H (83-110) mg/dL Calcium (8.5-10.1) mg/dL Magnesium (1.8-2.4) mg/dl C-Reactive Protein (<1.0) mg/dL MRSA (PCR) 02/17/17 Range/Units 05:55 WBC (3.98-10.04) K/mm3 RBC (3.98-5.22) M/mm3 Hgb (11.2-15.7) gm/L Hct (34.1-44.9) % MCV (79.4-94.8) fl MCH (25.6-32.2) pg MCHC (32.2-35.5) g/dl RDW Std Deviation (36.4-46.3) fL Plt Count (182-369) K/mm3 MPV (9.4-12.3) fl Neut % (Auto) (34.0-71.1) % Lymph % (Auto) (19.3-51.7) % [place] % (Auto) (4.7-12.5) % Eos % (Auto) (0.7-5.8) Baso % (Auto) (0.1-1.2) % Neut # (Auto) (1.56-6.13) K/mm3 Lymph # (Auto) (1.18-3.74) K/mm3 [place] # (Auto) (0.24-0.36) K/mm3 Eos # (Auto) (0.04-0.36) K/mm3 Baso # (Auto) (0.01-0.08) K/mm3 Sodium 144 (136-145) mEq/L Potassium 5.6 H (3.5-5.1) mEq/L Chloride 112 H (98-107) mEq/L Carbon Dioxide 15 L (21-32) mEq/L Anion Gap 22.6 H (5-15) BUN 86 H (7-18) mg/dL Creatinine 2.7 H (0.55-1.02) mg/dL Est Cr Clr Drug Dosing 11.08 mL/min Estimated GFR (MDRD) 17 (>60) mL/min BUN/Creatinine Ratio 31.9 H (14-18) Glucose 111 (83-115) mg/dL POC Glucose (83-110) mg/dL Calcium 7.7 L (8.5-10.1) mg/dL Magnesium 2.3 (1.8-2.4) mg/dl C-Reactive Protein 13.3 H* (<1.0) mg/dL MRSA (PCR) Med Orders - Current: Current Medications Acetaminophen (Tylenol) 650 mg PO Q4H PRN PRN Reason: Pain (Mild 1-3)/fever Hydrocodone Bitart/Acetaminophen ([place] 325-5 Mg) 1 tab PO Q4H PRN PRN Reason: Pain (moderate 4-6) Albuterol/Ipratropium (Duoneb 3.0-0.5 Mg/3 Ml) 3 ml NEB Q4H PRN PRN Reason: Shortness Of Breath/wheezing Bisacodyl (Dulcolax) 5 mg PO DAILY PRN PRN Reason: Constipation Dextrose/Water (Dextrose 50% In Water) 50 ml IVPUSH ASDIRECTED PRN PRN Reason: Hypoglycemia Last Admin: 02/16/17 22:22 Dose: 50 ml Docusate Sodium (Colace) 100 mg PO BID PRN PRN Reason: Constipation Famotidine (Pepcid) 20 mg IVPUSH BEDTIME DEMETRI Last Admin: 02/16/17 21:43 Dose: 20 mg Fluticasone Propionate (Flovent Hfa 110 Mcg) 0 gm INH DAILY DEMET[facility] Folic Acid (Folic Acid) 1 mg PO DAILY DEMET[facility] Hydralazine HCl (Apresoline) 10 mg IVPUSH Q4H PRN PRN Reason: Hypertension Hydrocortisone Sodium Succinate (Solu-Cortef) 100 mg IVPUSH Q8H DEMETRI Last Admin: 02/17/17 03:24 Dose: 100 mg Hydromorphone HCl (Dilaudid) 0.25 mg IVPUSH Q2H PRN PRN Reason: Pain (severe 7-10) Norepinephrine Bitartrate 4 mg (/ Dextrose/Water) 250 mls @ 7.5 mls/hr IV TITRATE DEMETRI; 2 MCG/MIN PRN Reason: Protocol Last Titration: 02/17/17 06:35 Dose: 1 mcg/min, 3.75 mls/hr Levofloxacin/Dextrose 500 mg/ (Premix) 100 mls @ 66.667 mls/hr IV Q48H DEMET[facility] Sodium Chloride (Normal Saline) 1,000 mls @ 50 mls/hr IV ASDIRECTED DEMET[facility] Promethazine HCl 6.25 mg/ (Sodium Chloride) 50.25 mls @ 100 mls/hr IV Q6H PRN PRN Reason: Nausea/Vomiting Dextrose/Sodium Chloride (Dextrose 5%-Normal Saline) 1,000 mls @ 15 mls/hr IV ASDIRECTED DEMETRI Last Admin: 02/16/17 22:58 Dose: 15 mls/hr Insulin Aspart (Novolog) 0 unit SUBCUT Q6HR DEMETRI PRN Reason: Protocol Last Admin: 02/17/17 06:33 Dose: Not Given Latanoprost (Xalatan 0.005% Ophth Soln) 0 ml EYEBOTH BEDTIME DEMETRI Last Admin: 02/16/17 21:51 Dose: 2 drop Levothyroxine Sodium (Synthroid) 100 mcg PO DAILY DEMETRI Lorazepam (Ativan) 0.25 mg IV Q6H PRN PRN Reason: Anxiety Magnesium Sulfate (Pharmacy To Dose - Magnesium Replacement) 1 dose .XX ASDIRECTED [facility] Metoprolol Tartrate (Lopressor) 5 mg IVPUSH Q4H PRN PRN Reason: Tachycardia Ondansetron HCl (Zofran) 4 mg IV Q6H PRN PRN Reason: Nausea/Vomiting Leflunomide 20mg 0 each PO DAILY [facility] Polyethylene Glycol (Miralax) 17 gm PO DAILY PRN PRN Reason: Constipation Potassium Chloride (Pharmacy To Dose - Potassium Replacement) 1 dose .XX ASDIRECTED [facility] Senna/Docusate Sodium (Senna Plus) 1 tab PO BID PRN PRN Reason: Constipation Sodium Chloride (Saline Flush) 10 ml FLUSH ASDIRECTED PRN PRN Reason: Keep Vein Open Last Admin: 02/16/17 13:29 Dose: 10 ml Vancomycin HCl (Pharmacy To Dose - Vancomycin) 1 dose .XX ASDIRECTED [facility] Discontinued Medications Albuterol/Ipratropium (Duoneb 3.0-0.5 Mg/3 Ml) 3 ml NEB ONETIME ONE Stop: 02/16/17 12:59 Last Admin: 02/16/17 13:15 Dose: 3 ml Bumetanide (Bumex) 0.5 mg IVPUSH ONETIME ONE Stop: 02/16/17 22:29 Last Admin: 02/16/17 22:53 Dose: 0.5 mg Calcium Carbonate/Glycine (Tums) 1,000 mg PO ONETIME ONE Stop: 02/16/17 22:28 Last Admin: 02/17/17 00:20 Dose: Not Given Calcium Gluconate (Calcium Gluconate) 1 gm IVPUSH ONETIME ONE Stop: 02/16/17 14:46 Last Admin: 02/16/17 15:17 Dose: 1 gm Dextrose/Water (Dextrose 50% In Water) 50 ml IVPUSH ONETIME ONE Stop: 02/16/17 14:45 Last Admin: 02/16/17 15:12 Dose: 50 ml Lactated Ringer's (Ringers, Lactated) 1,000 mls @ 999 mls/hr IV .BOLUS ONE Stop: 02/16/17 14:10 Last Admin: 02/16/17 13:29 Dose: 999 mls/hr Sodium Chloride (Normal Saline) 750 mls @ 1,000 mls/hr IV .BOLUS ONE Stop: 02/16/17 14:15 Last Admin: 02/16/17 15:30 Dose: 1,000 mls/hr Levofloxacin/Dextrose 750 mg/ (Premix) 150 mls @ 100 mls/hr IV ONETIME ONE Stop: 02/16/17 15:24 Last Admin: 02/16/17 14:11 Dose: 100 mls/hr Sodium Chloride (Normal Saline) Confirm Administered Dose 1,000 mls @ as directed .ROUTE .STK-MED ONE Stop: 02/16/17 14:07 Last Admin: 02/16/17 15:30 Dose: Not Given Levofloxacin/Dextrose (Levaquin In D5w 750 Mg/150 Ml) Confirm Administered Dose 150 mls @ as directed IV .STK-MED ONE Stop: 02/16/17 14:08 Last Admin: 02/16/17 15:29 Dose: Not Given Sodium Chloride (Normal Saline) Confirm Administered Dose 1,000 mls @ as directed .ROUTE .STK-MED ONE Stop: 02/16/17 15:28 Last Admin: 02/16/17 15:30 Dose: Not Given Vancomycin HCl 1 gm/Vancomycin HCl 500 mg/ Sodium Chloride 500 mls @ 125 mls/ hr IV Q24H DEMETRI Stop: 02/16/17 21:59 Last Admin: 02/16/17 18:26 Dose: 125 mls/hr Magnesium Sulfate (Magnesium Sulfate 2 Gm In Water 50 Ml) 50 mls @ 50 mls/hr IV ONETIME ONE Stop: 02/17/17 00:14 Last Admin: 02/17/17 00:27 Dose: 50 mls/hr Insulin Human Regular (Humulin R) 10 unit SUBCUT BIDAC [facility] PRN Reason: Protocol Last Admin: 02/16/17 15:10 Dose: 10 unit Norepinephrine Bitartrate (Levophed) Confirm Administered Dose 4 mg .ROUTE .STK- MED ONE Stop: 02/17/17 04:45 Last Admin: 02/17/17 05:05 Dose: Not Given Pantoprazole Sodium (Protonix Iv) 40 mg IVPUSH ONETIME ONE Stop: 02/16/17 18:12 Last Admin: 02/16/17 19:03 Dose: 40 mg Sodium Polystyrene Sulfonate (Kayexalate) 45 gm RECTAL NOW ONE Stop: 02/16/17 18:22 Last Admin: 02/16/17 18:52 Dose: 45 gm - Exam Quality Assessment: Supplemental Oxygen General: Lethargic HEENT: Pupils Equal, Pupils Reactive Neck: Supple, Trachea Midline, No JVD Lungs: Normal Respiratory Effort, Decreased Breath Sounds, Other (upper airway sounds ) Cardiovascular: Regular Rhythm, Tachycardia GI/Abdominal Exam: Normal Bowel Sounds, Soft, Non-Tender, No Organomegaly, No Distention, No Abnormal Bruit, No Mass (Female) Exam: Other (indwelling wagner catheter) Back Exam: Normal Inspection Extremities: Normal Inspection, Normal Range of Motion, Non-Tender, Other (1+ pitting edema on b/l lower extremity) Peripheral Pulses: 1+: Dorsalis Pedis (L), Dorsalis Pedis (R) Skin: Warm, Dry, Intact Neurological: Other (Not able to perform, she is lethargic) Psy/Mental Status: Other (Awake). No: Alert, Anxious, Agitated - Problem List Review Problem List Initiated/Reviewed/Updated: Yes - My Orders Last 24 Hours: My Active Orders 02/20/17 05:11 BASIC METABOLIC PANEL,BMP [CHEM] AM C-REACTIVE PROTEIN [CHEM] AM CBC WITH AUTO DIFF [HEME] AM MAGNESIUM [CHEM] AM 02/21/17 05:11 BASIC METABOLIC PANEL,BMP [CHEM] AM C-REACTIVE PROTEIN [CHEM] AM MAGNESIUM [CHEM] AM 02/16/17 18:11 Height and Weight [RC] 0400 Oxygen Therapy [RC] PRN Up With Assistance [RC] ASDIRECTED Up ad Leyda [RC] ASDIRECTED VTE/DVT Education [RC] PER UNIT ROUTINE Vital Signs [RC] Q1HR Acetaminophen [Tylenol] 650 mg PO Q4H PRN Acetaminophen/HYDROcodone [[place] 325-5 MG] 1 tab PO Q4H PRN Albuterol/Ipratropium [DuoNeb 3.0-0.5 MG/3 ML] 3 ml NEB Q4H PRN Bisacodyl [Dulcolax] 5 mg PO DAILY PRN Docusate Sodium [Colace] 100 mg PO BID PRN Docusate Sodium/Sennosides [Senna Plus] 1 tab PO BID PRN HYDROmorphone [Dilaudid] 0.25 mg IVPUSH Q2H PRN LORazepam [Ativan] 0.25 mg IV Q6H PRN Ondansetron [Zofran] 4 mg IV Q6H PRN Polyethylene Glycol 3350 [MiraLAX] 17 gm PO DAILY PRN Promethazine [Phenergan] 6.25 mg Sodium Chloride 0.9% [Normal Saline] 50 ml IV Q6H Resuscitation Status Routine 02/16/17 18:12 Cardiac Monitoring [RC] CONTINUOUS Intake and Output [RC] Q2HR Pulse Oximetry [RC] PRN 02/16/17 18:15 Consult to Case Management [CONS] Routine Consult to Test Facility Engineer [CONS] Routine Consult to Spiritual Care [CONS] Routine OT Evaluation and Treatment [CONS] Routine PT Evaluation and Treatment [CONS] Routine Respiratory Care Assess and Treatment [CONS] Routine 02/16/17 18:19 Metoprolol Tartrate [Lopressor] 5 mg IVPUSH Q4H PRN hydrALAZINE [Apresoline] 10 mg IVPUSH Q4H PRN 02/16/17 18:20 CORTISOL [REF] Stat PROCALCITONIN [REF] Stat 02/16/17 18:21 Blood Glucose Check, Bedside [RC] Q6HR 02/16/17 18:24 Incentive Spirometry [RT Incentive Spirometry] [RC] ASDIRECTED Precautions [COMM] Routine 02/16/17 18:25 Antiembolic Devices [RC] QSHIFT HUA Hose Substitution [Sequential Compression Device] [OM.PC] Routine Transfuse Red Blood Cells [COMM] Stat 02/16/17 18:30 Magnesium Rep Pharmacy to Dose [Pharmacy to Dose - Magnesium Replacement] 1 dose .XX ASDIRECTED Potassium Rep Pharmacy to Dose [Pharmacy to Dose - Potassium Replacement] 1 dose .XX ASDIRECTED 02/16/17 19:00 Hydrocortisone Sod Succinate [Solu-CORTEF] 100 mg IVPUSH Q8H 02/16/17 21:00 Famotidine [Pepcid] 20 mg IVPUSH BEDTIME Latanoprost [Xalatan 0.005% Ophth Soln] 0 ml EYEBOTH BEDTIME 02/16/17 22:30 Dextrose 5%-0.9% NaCl [Dextrose 5%-Normal Saline] 1,000 ml IV ASDIRECTED 02/16/17 Dinner Nothing per Oral Now Diet [DIET] 02/17/17 05:55 CBC WITH AUTO DIFF [HEME] AM 02/17/17 07:00 Echo Comp wo Cont [US] Routine Retroperitoneal Ltd [US] Routine 02/17/17 09:00 Fluticasone Propionate [Flovent HFA 110 MCG] 0 gm INH DAILY Folic Acid 1 mg PO DAILY Levothyroxine [Synthroid] 100 mcg PO DAILY Patient's Own Medication [Ptom] 0 each PO DAILY 02/18/17 05:11 BASIC METABOLIC PANEL,BMP [CHEM] AM C-REACTIVE PROTEIN [CHEM] AM CBC WITH AUTO DIFF [HEME] AM MAGNESIUM [CHEM] AM 02/18/17 08:00 Chest 1V Frontal [CR] Routine 02/18/17 21:00 Levofloxacin/Dextrose 5%-Water [Levaquin in D5W 500 MG/100 ML] 500 mg Premix Bag 1 bag IV Q48H 02/19/17 05:11 BASIC METABOLIC PANEL,BMP [CHEM] AM C-REACTIVE PROTEIN [CHEM] AM CBC WITH AUTO DIFF [HEME] AM MAGNESIUM [CHEM] AM - Plan Plan:: I/P: Acute: Pneumonia -Increasing SOB reported by [place] and family -Risk factors: Confusion from dementia (? aspiration), Hx/o lung ca with resection, Lives in specialty SNF -CXR in ED shows right middle lobe pneumonia; repeat CRX tomorrow -RT to assess and treat/IS -f/u cxr in 48 hrs -Oxygen as needed - titrate -Continue IV Levaquin/Vancomycin for pharmacy to dose Anion gap metabolic acidosis -2/2 sepsis -Anion gap 24.6 --> 22.6 -Carbon Dioxide 14-- 15 -Fluids as ordered Hyperkalemia, Improved -Potassium 6.6 in ED--> now 5.6 -1gm calcium gluconate given in ED -10 unit humulin given in ED -1700ml fluid bolus given in ED -45gm Kayexalate rectally last night; oral dose 15 mg po x1 now -Given 40mg lasix by EMS crew -Hx/o hypokalemia - Avoid lasix due to poor renal function Renal failure, Improving -Acute on chronic -Unsure of baseline - obtain old records -BUN 111, Creatinine 3.6, eGFR 12 -Pharmacy to renally dose medications -Hold nephrotoxic drugs -Fluids -Renal ultrasound to rule out obstructive uropathy- pending -Monitor I&O wagner in place Heart failure -Acute on chronic -Unsure of baseline - obtain old records -Pro-BNP 2506--> repeat level in AM -Echo completed -Monitor as aggressive fluid resuscitation is needed 2/2 above Anemia, Improved -Acute on chronic -Unsure of baseline - obtain old records -Hgb 7.9--> 11.7, Hct 25.3, Heme + stool in ED, INR 1.15, APTT 43 -No reported hematemesis, melena, hematochezia. -S/p 2 units PRBCs transfusion -Monitor H&H -Consider surgical consult Resolved: Septic shock -2/2 pneumonia -Hypotensive -Rales in right lower lobe -Hypothermic on arrival -89.6 F rectally -Vero hugger in place -WBC 14.93 -CRP 4.7 -UA negative -INR 1.15 -APTT 43 -Blood cultures - pending -Serum cortisol level - ordered -procalcitonin - ordered -1700 ml fluid bolus in ED -Levaquin 750 given in ED - continue -Vancomycin - pharmacy to dose -Solu-cortif Q6 -Fluids as ordered -NPO -Critical patient - strict I&O -Wagner in place Hypotension -2/2 above -BP 61/45 on arrival -HR 60 -Fluid bolus given in ED -Fluids as ordered -Norepinephrine drip - titrate per protocol Chronic: Hypothyroidism HLD Hypokalemia Dementia w/o behavioral disturbance Mild cognitive impairment Insomnia Glaucoma CAD GERD RA Lower back pain OA Visual hallucinations Hx/o TIA Hx/o [place] Hx/o lung neoplasm with lobectomy Plan: She is slowly improving clinically Continue current treatment Continue PT/OT/Spiritual care Swallow Eval Consult Routine AM labs GI Prophylaxis protonix DVT/PE prophylaxis: TEDS, ambulation as tolerated CM/SW for discharge planning Other orders as indicated above Prognosis is guarded at this point. Code status: DNR. Her PCP is Dr. Walden at [facility]. She recently transferred care from Dr. Grullon in [place].
[2017-02-17] MEDS: Norepinephrine 4 MG in Dextrose 5% in Water 246 ML IV SCH ×2 (07:32)
[2017-02-17] MEDS: Albuterol/Ipratropium 3.0-0.5 MG/3 ML Neb Soln NEB PRN ×2 (08:13→20:27)
--- NOTE | 2017-02-17 10:43 | CR ---
Chest: Portable view of the chest was obtained. Comparison: No prior study. Parenchymal density is noted within the upper right lung. Slight atelectasis is seen within the left lung base. Heart size and mediastinum are normal. Previous surgery is seen within the mediastinum. Impression: 1. Parenchymal density within the right upper chest possibly representing pneumonia. 2. Other incidental findings. Diagnostic code #3
[2017-02-17] MEDS: Folic Acid 1 MG Tab PO SCH (12:51)
[2017-02-17] MEDS: Levothyroxine 100 MCG Tab PO SCH (12:52)
--- NOTE | 2017-02-17 13:51 | US ---
Renal ultrasound: Multiple real-time images of the kidneys were obtained. Comparison: No prior study. [place] catheter is noted within the bladder. Resistivity indices are mildly increased within both kidneys. Both kidneys are small in size which on the right side measures 8.2 cm in length and on the left side 5.7 cm in length. Cortex of both kidneys are echogenic. No discrete cyst or solid abnormality is seen although smaller abnormalities could be missed as kidneys are not optimally seen. Bladder does not empty completely with unclamping of the Mont[place] catheter. Impression: 1. Echogenic renal cortices as well as elevated resistivity indices compatible with chronic medical renal disease. Both kidneys are somewhat atrophied especially on the left side. 2. Montelongo catheter within the bladder. Bladder does not empty completely when unclamping the Montelongo catheter. Diagnostic code #3
[2017-02-17] MEDS: Fluticasone Propionate 110 MCG/Puff 12 GM Inhaler INH SCH (14:30)
[2017-02-17] MEDS ORDERED: Sodium Polystyrene Sulfonate 15 GM/60 ML Susp 60 ML Bot PO ONE (16:03)
[2017-02-17] MEDS: Famotidine 20 MG/2 ML SDV IVPUSH SCH (19:59)
[2017-02-17] MEDS: Latanoprost 0.005% Ophth Soln 2.5 ML Bottle EYEBOTH SCH (19:59)
[2017-02-17] MEDS: Metoprolol Tartrate 5 MG/5 ML SDV IVPUSH PRN (20:41)
[2017-02-17] MEDS: risperiDONE 0.5 MG Tab PO SCH (21:12)
[2017-02-18] MEDS: Insulin Aspart 100 Units/ML 3 ML Pen SUBCUT SCH ×4 (01:04→17:35)
[2017-02-18] MEDS: Hydrocortisone Sodium Succinate 100 MG/2 ML SDV IVPUSH SCH ×3 (04:00→18:03)
[2017-02-18] MEDS: Metoprolol Tartrate 5 MG/5 ML SDV IVPUSH PRN ×2 (05:50→23:55)
[2017-02-18] MEDS ORDERED: Furosemide 20 MG/2 ML VIAL IVPUSH ONE (08:48)
--- NOTE | 2017-02-18 09:07 | CR ---
Chest: A portable view of the chest was obtained. Comparison: Prior chest x-ray of 02/16/17. Parenchymal density within the right upper lung is seen. This appears less dense but larger in size currently than on prior study. Lungs otherwise are clear. Heart size and mediastinum are within normal limits for portable technique. Prior surgery is noted. Bony structures are osteopenic. Severe degenerative change is noted within the left shoulder. Impression: 1. Parenchymal density within the upper right lung as described above most likely due to persisting pneumonia. 2. Other incidental findings. Diagnostic code #3
[2017-02-18] MEDS: Dextrose 5% in Water 1,000 ML IV SCH (10:09)
[2017-02-18] MEDS: Folic Acid 1 MG Tab PO SCH (10:09)
[2017-02-18] MEDS: risperiDONE 0.5 MG Tab PO SCH ×3 (10:11→20:51)
[2017-02-18] MEDS: Levothyroxine 100 MCG Tab PO SCH (10:30)
[2017-02-18] MEDS: Fluticasone Propionate 110 MCG/Puff 12 GM Inhaler INH SCH (10:44)
[2017-02-18] MEDS: Albuterol/Ipratropium 3.0-0.5 MG/3 ML Neb Soln NEB PRN ×2 (10:44→21:03)
--- NOTE | 2017-02-18 11:46 | PCM.PN ---
- General Info Date of Service: 02/18/17 Functional Status: Reports: Pain Controlled, Tolerating Diet (minimla) - Review of Systems General: Reports: Weakness HEENT: Reports: No Symptoms Pulmonary: Reports: No Symptoms Cardiovascular: Reports: No Symptoms Gastrointestinal: Reports: No Symptoms Genitourinary: Reports: No Symptoms Musculoskeletal: Reports: No Symptoms Skin: Reports: No Symptoms Neurological: Reports: No Symptoms Psychiatric: Reports: No Symptoms - Patient Data Vitals - Most Recent: Last Vital Signs Temp 37.2 C 02/18/17 04:00 Pulse 54 L 02/18/17 09:49 Resp 20 02/18/17 09:49 BP 137/63 02/18/17 09:49 Pulse Ox 94 L 02/18/17 09:49 Weight - Most Recent: 62.46 kg I&O - Last 24 Hours: Intake & Output 02/17/17 02/18/17 02/18/17 22:59 06:59 14:59 Intake Total 450 355 Output Total 385 555 275 Balance 65 -200 -275 Lab Results Last 24 Hours: Laboratory Results - last 24 hr 02/16/17 02/16/17 02/17/17 Range/Units 18:20 18:20 12:10 WBC (3.98-10.04) K/mm3 RBC (3.98-5.22) M/mm3 Hgb (11.2-15.7) gm/L Hct (34.1-44.9) % MCV (79.4-94.8) fl MCH (25.6-32.2) pg MCHC (32.2-35.5) g/dl RDW Std Deviation (36.4-46.3) fL Plt Count (182-369) K/mm3 MPV (9.4-12.3) fl Neut % (Auto) (34.0-71.1) % Lymph % (Auto) (19.3-51.7) % Winston % (Auto) (4.7-12.5) % Eos % (Auto) (0.7-5.8) Baso % (Auto) (0.1-1.2) % Neut # (Auto) (1.56-6.13) K/mm3 Lymph # (Auto) (1.18-3.74) K/mm3 Winston # (Auto) (0.24-0.36) K/mm3 Eos # (Auto) (0.04-0.36) K/mm3 Baso # (Auto) (0.01-0.08) K/mm3 Manual Slide Review Sodium (136-145) mEq/L Potassium (3.5-5.1) mEq/L Chloride (98-107) mEq/L Carbon Dioxide (21-32) mEq/L Anion Gap (5-15) BUN (7-18) mg/dL Creatinine (0.55-1.02) mg/dL Est Cr Clr Drug Dosing mL/min Estimated GFR (MDRD) (>60) mL/min BUN/Creatinine Ratio (14-18) Glucose (83-115) mg/dL POC Glucose 90 (83-110) mg/dL Calcium (8.5-10.1) mg/dL Magnesium (1.8-2.4) mg/dl C-Reactive Protein (<1.0) mg/dL NT-Pro-B Natriuret Pep (0-450) pg/mL Procalcitonin 0.15 H (<0.10) ng/mL Cortisol 30.7 ug/dL 02/17/17 02/18/17 02/18/17 Range/Units 18:34 00:50 06:11 WBC (3.98-10.04) K/mm3 RBC (3.98-5.22) M/mm3 Hgb (11.2-15.7) gm/L Hct (34.1-44.9) % MCV (79.4-94.8) fl MCH (25.6-32.2) pg MCHC (32.2-35.5) g/dl RDW Std Deviation (36.4-46.3) fL Plt Count (182-369) K/mm3 MPV (9.4-12.3) fl Neut % (Auto) (34.0-71.1) % Lymph % (Auto) (19.3-51.7) % Winston % (Auto) (4.7-12.5) % Eos % (Auto) (0.7-5.8) Baso % (Auto) (0.1-1.2) % Neut # (Auto) (1.56-6.13) K/mm3 Lymph # (Auto) (1.18-3.74) K/mm3 Winston # (Auto) (0.24-0.36) K/mm3 Eos # (Auto) (0.04-0.36) K/mm3 Baso # (Auto) (0.01-0.08) K/mm3 Manual Slide Review Sodium (136-145) mEq/L Potassium (3.5-5.1) mEq/L Chloride (98-107) mEq/L Carbon Dioxide (21-32) mEq/L Anion Gap (5-15) BUN (7-18) mg/dL Creatinine (0.55-1.02) mg/dL Est Cr Clr Drug Dosing mL/min Estimated GFR (MDRD) (>60) mL/min BUN/Creatinine Ratio (14-18) Glucose (83-115) mg/dL POC Glucose 113 H 125 H 113 H (83-110) mg/dL Calcium (8.5-10.1) mg/dL Magnesium (1.8-2.4) mg/dl C-Reactive Protein (<1.0) mg/dL NT-Pro-B Natriuret Pep (0-450) pg/mL Procalcitonin (<0.10) ng/mL Cortisol ug/dL 02/18/17 02/18/17 02/18/17 Range/Units 07:41 07:41 10:38 WBC 16.11 H (3.98-10.04) K/mm3 RBC 3.92 L (3.98-5.22) M/mm3 Hgb 11.5 (11.2-15.7) gm/L Hct 34.8 (34.1-44.9) % MCV 88.8 (79.4-94.8) fl MCH 29.3 (25.6-32.2) pg MCHC 33.0 (32.2-35.5) g/dl RDW Std Deviation 60.8 H (36.4-46.3) fL Plt Count 119 L (182-369) K/mm3 MPV 9.5 (9.4-12.3) fl Neut % (Auto) 91.5 H (34.0-71.1) % Lymph % (Auto) 3.2 L (19.3-51.7) % Winston % (Auto) 4.7 (4.7-12.5) % Eos % (Auto) 0 L (0.7-5.8) Baso % (Auto) 0.0 L (0.1-1.2) % Neut # (Auto) 14.75 H (1.56-6.13) K/mm3 Lymph # (Auto) 0.51 L (1.18-3.74) K/mm3 Winston # (Auto) 0.76 H (0.24-0.36) K/mm3 Eos # (Auto) 0.00 L (0.04-0.36) K/mm3 Baso # (Auto) 0.00 L (0.01-0.08) K/mm3 Manual Slide Review Abnormal smear Sodium 151 H (136-145) mEq/L Potassium 4.5 (3.5-5.1) mEq/L Chloride 120 H (98-107) mEq/L Carbon Dioxide 16 L (21-32) mEq/L Anion Gap 19.5 H (5-15) BUN 64 H (7-18) mg/dL Creatinine 2.1 H (0.55-1.02) mg/dL Est Cr Clr Drug Dosing 14.24 mL/min Estimated GFR (MDRD) 22 (>60) mL/min BUN/Creatinine Ratio 30.5 H (14-18) Glucose 118 H (83-115) mg/dL POC Glucose 119 H (83-110) mg/dL Calcium 8.1 L (8.5-10.1) mg/dL Magnesium 2.4 (1.8-2.4) mg/dl C-Reactive Protein 10.7 H* (<1.0) mg/dL NT-Pro-B Natriuret Pep 7291 H (0-450) pg/mL Procalcitonin (<0.10) ng/mL Cortisol ug/dL Med Orders - Current: Current Medications Acetaminophen (Tylenol) 650 mg PO Q4H PRN PRN Reason: Pain (Mild 1-3)/fever Hydrocodone Bitart/Acetaminophen ([place] 325-5 Mg) 1 tab PO Q4H PRN PRN Reason: Pain (moderate 4-6) Albuterol/Ipratropium (Duoneb 3.0-0.5 Mg/3 Ml) 3 ml NEB Q4H PRN PRN Reason: Shortness Of Breath/wheezing Last Admin: 12/30/17 10:44 Dose: 3 ml Bisacodyl (Dulcolax) 5 mg PO DAILY PRN PRN Reason: Constipation Dextrose/Water (Dextrose 50% In Water) 50 ml IVPUSH ASDIRECTED PRN PRN Reason: Hypoglycemia Last Admin: 02/16/17 22:22 Dose: 50 ml Docusate Sodium (Colace) 100 mg PO BID PRN PRN Reason: Constipation Famotidine (Pepcid) 20 mg IVPUSH BEDTIME DEMETRI Last Admin: 02/17/17 19:59 Dose: 20 mg Fluticasone Propionate (Flovent Hfa 110 Mcg) 0 gm INH DAILY DEMET[facility] Last Admin: 02/18/17 10:44 Dose: Not Given Folic Acid (Folic Acid) 1 mg PO DAILY DEMETRI Last Admin: 02/18/17 10:09 Dose: Not Given Hydralazine HCl (Apresoline) 10 mg IVPUSH Q4H PRN PRN Reason: Hypertension Hydrocortisone Sodium Succinate (Solu-Cortef) 100 mg IVPUSH Q8H DEMETRI Last Admin: 02/18/17 10:36 Dose: 100 mg Hydromorphone HCl (Dilaudid) 0.25 mg IVPUSH Q2H PRN PRN Reason: Pain (severe 7-10) Norepinephrine Bitartrate 4 mg (/ Dextrose/Water) 250 mls @ 7.5 mls/hr IV TITRATE DEMETRI; 2 MCG/MIN PRN Reason: Protocol Last Titration: 02/17/17 07:45 Dose: 0 mcg/min, 0 mls/hr Levofloxacin/Dextrose 500 mg/ (Premix) 100 mls @ 66.667 mls/hr IV Q48H DEMETRI Sodium Chloride (Normal Saline) 1,000 mls @ 50 mls/hr IV ASDIRECTED DEMETRI Promethazine HCl 6.25 mg/ (Sodium Chloride) 50.25 mls @ 100 mls/hr IV Q6H PRN PRN Reason: Nausea/Vomiting Vancomycin HCl 1 gm/ Sodium (Chloride) 250 mls @ 166.667 mls/hr IV Q48H DEMETRI Dextrose/Water (Dextrose 5% In Water) 1,000 mls @ 75 mls/hr IV ASDIRECTED DEMETRI Last Admin: 02/18/17 10:09 Dose: 50 mls/hr Insulin Aspart (Novolog) 0 unit SUBCUT Q6HR DEMETRI PRN Reason: Protocol Last Admin: 02/18/17 11:05 Dose: Not Given Latanoprost (Xalatan 0.005% Ophth Soln) 0 ml EYEBOTH BEDTIME [facility] Last Admin: 02/17/17 19:59 Dose: 1 drop Levothyroxine Sodium (Synthroid) 100 mcg PO DAILY [facility] Last Admin: 02/18/17 10:30 Dose: Not Given Lorazepam (Ativan) 0.25 mg IV Q6H PRN PRN Reason: Anxiety Magnesium Sulfate (Pharmacy To Dose - Magnesium Replacement) 1 dose .XX ASDIRECTED [facility] Metoprolol Tartrate (Lopressor) 5 mg IVPUSH Q4H PRN PRN Reason: Tachycardia Last Admin: 02/18/17 05:50 Dose: 5 mg Ondansetron HCl (Zofran) 4 mg IV Q6H PRN PRN Reason: Nausea/Vomiting Leflunomide 20mg 0 each PO DAILY [facility] Last Admin: 02/18/17 10:11 Dose: Not Given Polyethylene Glycol (Miralax) 17 gm PO DAILY PRN PRN Reason: Constipation Potassium Chloride (Pharmacy To Dose - Potassium Replacement) 1 dose .XX ASDIRECTED [facility] Risperidone (Risperidal) 0.5 mg PO TID [facility] Last Admin: 02/18/17 10:11 Dose: Not Given Senna/Docusate Sodium (Senna Plus) 1 tab PO BID PRN PRN Reason: Constipation Sodium Chloride (Saline Flush) 10 ml FLUSH ASDIRECTED PRN PRN Reason: Keep Vein Open Last Admin: 02/16/17 13:29 Dose: 10 ml Vancomycin HCl (Pharmacy To Dose - Vancomycin) 1 dose .XX ASDIRECTED [facility] Discontinued Medications Albuterol/Ipratropium (Duoneb 3.0-0.5 Mg/3 Ml) 3 ml NEB ONETIME ONE Stop: 02/16/17 12:59 Last Admin: 02/16/17 13:15 Dose: 3 ml Bumetanide (Bumex) 0.5 mg IVPUSH ONETIME ONE Stop: 02/16/17 22:29 Last Admin: 02/16/17 22:53 Dose: 0.5 mg Calcium Carbonate/Glycine (Tums) 1,000 mg PO ONETIME ONE Stop: 02/16/17 22:28 Last Admin: 02/17/17 00:20 Dose: Not Given Calcium Gluconate (Calcium Gluconate) 1 gm IVPUSH ONETIME ONE Stop: 02/16/17 14:46 Last Admin: 02/16/17 15:17 Dose: 1 gm Dextrose/Water (Dextrose 50% In Water) 50 ml IVPUSH ONETIME ONE Stop: 02/16/17 14:45 Last Admin: 02/16/17 15:12 Dose: 50 ml Furosemide (Lasix) 10 mg IVPUSH NOW ONE Stop: 02/18/17 08:49 Last Admin: 02/18/17 10:10 Dose: 10 mg Lactated Ringer's (Ringers, Lactated) 1,000 mls @ 999 mls/hr IV .BOLUS ONE Stop: 02/16/17 14:10 Last Admin: 02/16/17 13:29 Dose: 999 mls/hr Sodium Chloride (Normal Saline) 750 mls @ 1,000 mls/hr IV .BOLUS ONE Stop: 02/16/17 14:15 Last Admin: 02/16/17 15:30 Dose: 1,000 mls/hr Levofloxacin/Dextrose 750 mg/ (Premix) 150 mls @ 100 mls/hr IV ONETIME ONE Stop: 02/16/17 15:24 Last Admin: 02/16/17 14:11 Dose: 100 mls/hr Sodium Chloride (Normal Saline) Confirm Administered Dose 1,000 mls @ as directed .ROUTE .STK-MED ONE Stop: 02/16/17 14:07 Last Admin: 02/16/17 15:30 Dose: Not Given Levofloxacin/Dextrose (Levaquin In D5w 750 Mg/150 Ml) Confirm Administered Dose 150 mls @ as directed IV .STK-MED ONE Stop: 02/16/17 14:08 Last Admin: 02/16/17 15:29 Dose: Not Given Sodium Chloride (Normal Saline) Confirm Administered Dose 1,000 mls @ as directed .ROUTE .STK-MED ONE Stop: 02/16/17 15:28 Last Admin: 02/16/17 15:30 Dose: Not Given Vancomycin HCl 1 gm/Vancomycin HCl 500 mg/ Sodium Chloride 500 mls @ 125 mls/ hr IV Q24H DEMETRI Stop: 02/16/17 21:59 Last Admin: 02/16/17 18:26 Dose: 125 mls/hr Dextrose/Sodium Chloride (Dextrose 5%-Normal Saline) 1,000 mls @ 15 mls/hr IV ASDIRECTED [facility] Last Admin: 02/16/17 22:58 Dose: 15 mls/hr Magnesium Sulfate (Magnesium Sulfate 2 Gm In Water 50 Ml) 50 mls @ 50 mls/hr IV ONETIME ONE Stop: 02/17/17 00:14 Last Admin: 02/17/17 00:27 Dose: 50 mls/hr Insulin Human Regular (Humulin R) 10 unit SUBCUT BIDAC [facility] PRN Reason: Protocol Last Admin: 02/16/17 15:10 Dose: 10 unit Norepinephrine Bitartrate (Levophed) Confirm Administered Dose 4 mg .ROUTE .STK- MED ONE Stop: 02/17/17 04:45 Last Admin: 02/17/17 05:05 Dose: Not Given Pantoprazole Sodium (Protonix Iv) 40 mg IVPUSH ONETIME ONE Stop: 02/16/17 18:12 Last Admin: 02/16/17 19:03 Dose: 40 mg Sodium Polystyrene Sulfonate (Kayexalate) 45 gm RECTAL NOW ONE Stop: 02/16/17 18:22 Last Admin: 02/16/17 18:52 Dose: 45 gm Sodium Polystyrene Sulfonate (Kayexalate) 15 gm PO ONETIME ONE Stop: 02/17/17 16:04 Last Admin: 02/17/17 16:38 Dose: 15 gm - Exam Quality Assessment: Supplemental Oxygen, DVT Prophylaxis General: Alert, No Acute Distress HEENT: Pupils Equal, Pupils Reactive, EOMI Neck: Supple, Trachea Midline, No JVD Lungs: Normal Respiratory Effort, Decreased Breath Sounds Cardiovascular: Regular Rate GI/Abdominal Exam: Normal Bowel Sounds, Soft, Non-Tender, No Organomegaly, No Distention (Female) Exam: Deferred Back Exam: Normal Inspection Extremities: Normal Inspection Skin: Warm Neurological: No New Focal Deficit Psy/Mental Status: Alert - Problem List Review Problem List Initiated/Reviewed/Updated: Yes - Plan Plan:: I/P: Acute: Pneumonia -Increasing SOB reported by [place] and family -Risk factors: Confusion from dementia (? aspiration), Hx/o lung ca with resection, Lives in specialty SNF -CXR in ED shows right middle lobe pneumonia; repeat CRX tomorrow -RT to assess and treat/IS -f/u cxr in 48 hrs -Oxygen as needed - titrate -Continue IV Levaquin/Vancomycin for pharmacy to dose Anion gap metabolic acidosis -2/2 sepsis -Anion gap 24.6 --> 22.6 -Carbon Dioxide 14-- 15 -Fluids as ordered Hyperkalemia, Improved -Potassium 6.6 in ED--> now 5.6 -1gm calcium gluconate given in ED -10 unit humulin given in ED -1700ml fluid bolus given in ED -45gm Kayexalate rectally last night; oral dose 15 mg po x1 now -Given 40mg lasix by EMS crew -Hx/o hypokalemia - Avoid lasix due to poor renal function Renal failure, Improving -Acute on chronic -Unsure of baseline - obtain old records -BUN 111, Creatinine 3.6, eGFR 12 -Pharmacy to renally dose medications -Hold nephrotoxic drugs -Fluids -Renal ultrasound to rule out obstructive uropathy- pending -Monitor I&O wagner in place Heart failure -Acute on chronic -Unsure of baseline - obtain old records -Pro-BNP 2506--> repeat level in AM -Echo completed -Monitor as aggressive fluid resuscitation is needed 2/2 above Anemia, Improved -Acute on chronic -Unsure of baseline - obtain old records -Hgb 7.9--> 11.7, Hct 25.3, Heme + stool in ED, INR 1.15, APTT 43 -No reported hematemesis, melena, hematochezia. -S/p 2 units PRBCs transfusion -Monitor H&H -Consider surgical consult Resolved: Septic shock -2/2 pneumonia -Hypotensive -Rales in right lower lobe -Hypothermic on arrival -89.6 F rectally -Vero hugger in place -WBC 14.93 -CRP 4.7 -UA negative -INR 1.15 -APTT 43 -Blood cultures - pending -Serum cortisol level - ordered -procalcitonin - ordered -1700 ml fluid bolus in ED -Levaquin 750 given in ED - continue -Vancomycin - pharmacy to dose -Solu-cortif Q6 -Fluids as ordered -NPO -Critical patient - strict I&O -Wagner in place Hypotension -2/2 above -BP 61/45 on arrival -HR 60 -Fluid bolus given in ED -Fluids as ordered -Norepinephrine drip - titrate per protocol-->stopped 02/18/17 Chronic: Hypothyroidism HLD Hypokalemia Dementia w/o behavioral disturbance Mild cognitive impairment Insomnia Glaucoma CAD GERD RA Lower back pain OA Visual hallucinations Hx/o TIA Hx/o SD Hx/o lung neoplasm with lobectomy Plan: She is slowly improving clinically Continue current treatment Continue PT/OT/Spiritual care Swallow Eval Consult Routine AM labs GI Prophylaxis protonix DVT/PE prophylaxis: TEDS, ambulation as tolerated CM/SW for discharge planning Other orders as indicated above Prognosis is guarded at this point. Transfer to [place] tele Code status: DNR. Her PCP is Dr. Walden at [facility]. She recently transferred care from Dr. Grullon in [place]. LOS>96 hours with severe infection/sepsis
[2017-02-18] MEDS: Levofloxacin/Dextrose 5%-Water 500 MG in Premix Bag 1 BAG IV SCH (20:33)
[2017-02-18] MEDS: Famotidine 20 MG/2 ML SDV IVPUSH SCH (20:33)
[2017-02-18] MEDS: Latanoprost 0.005% Ophth Soln 2.5 ML Bottle EYEBOTH SCH (20:49)
[2017-02-19] MEDS: Insulin Aspart 100 Units/ML 3 ML Pen SUBCUT SCH ×5 (00:07→23:46)
[2017-02-19] MEDS: Dextrose 5% in Water 1,000 ML IV SCH ×2 (00:14→13:33)
[2017-02-19] MEDS: Hydrocortisone Sodium Succinate 100 MG/2 ML SDV IVPUSH SCH ×3 (03:04→18:45)
[2017-02-19] MEDS: Folic Acid 1 MG Tab PO SCH (09:00)
[2017-02-19] MEDS: Levothyroxine 100 MCG Tab PO SCH (09:01)
[2017-02-19] MEDS: risperiDONE 0.5 MG Tab PO SCH ×3 (09:01→20:41)
[2017-02-19] MEDS: Albuterol/Ipratropium 3.0-0.5 MG/3 ML Neb Soln NEB PRN ×2 (09:34→18:07)
--- NOTE | 2017-02-19 12:09 | PCM.PN ---
- General Info Date of Service: 02/19/17 Functional Status: Reports: Pain Controlled, Tolerating Diet - Review of Systems General: Reports: Weakness HEENT: Reports: No Symptoms Pulmonary: Reports: No Symptoms Cardiovascular: Reports: No Symptoms Gastrointestinal: Reports: No Symptoms Genitourinary: Reports: No Symptoms Musculoskeletal: Reports: No Symptoms Skin: Reports: No Symptoms Neurological: Reports: Confusion Psychiatric: Reports: Confusion - Patient Data Vitals - Most Recent: Last Vital Signs Temp 36.6 C 02/19/17 11:39 Pulse 108 H 02/19/17 11:39 Resp 22 H 02/19/17 11:39 BP 136/75 02/19/17 11:39 Pulse Ox 93 L 02/19/17 11:39 Weight - Most Recent: 60.237 kg I&O - Last 24 Hours: Intake & Output 02/18/17 02/19/17 02/19/17 22:59 06:59 14:59 Intake Total 139 899 Output Total 665 326 Balance -526 573 Lab Results Last 24 Hours: Laboratory Results - last 24 hr 02/18/17 02/19/17 02/19/17 Range/Units 17:29 00:06 06:08 WBC (3.98-10.04) K/mm3 RBC (3.98-5.22) M/mm3 Hgb (11.2-15.7) gm/L Hct (34.1-44.9) % MCV (79.4-94.8) fl MCH (25.6-32.2) pg MCHC (32.2-35.5) g/dl RDW Std Deviation (36.4-46.3) fL Plt Count (182-369) K/mm3 MPV (9.4-12.3) fl Neut % (Auto) (34.0-71.1) % Lymph % (Auto) (19.3-51.7) % Winkler % (Auto) (4.7-12.5) % Eos % (Auto) (0.7-5.8) Baso % (Auto) (0.1-1.2) % Neut # (Auto) (1.56-6.13) K/mm3 Lymph # (Auto) (1.18-3.74) K/mm3 Winkler # (Auto) (0.24-0.36) K/mm3 Eos # (Auto) (0.04-0.36) K/mm3 Baso # (Auto) (0.01-0.08) K/mm3 Manual Slide Review Sodium (136-145) mEq/L Potassium (3.5-5.1) mEq/L Chloride (98-107) mEq/L Carbon Dioxide (21-32) mEq/L Anion Gap (5-15) BUN (7-18) mg/dL Creatinine (0.55-1.02) mg/dL Est Cr Clr Drug Dosing mL/min Estimated GFR (MDRD) (>60) mL/min BUN/Creatinine Ratio (14-18) Glucose (83-115) mg/dL POC Glucose 201 H 153 H 133 H (83-110) mg/dL Calcium (8.5-10.1) mg/dL Magnesium (1.8-2.4) mg/dl C-Reactive Protein (<1.0) mg/dL 02/19/17 02/19/17 Range/Units 06:10 06:10 WBC 17.65 H (3.98-10.04) K/mm3 RBC 4.09 (3.98-5.22) M/mm3 Hgb 11.9 (11.2-15.7) gm/L Hct 36.7 (34.1-44.9) % MCV 89.7 (79.4-94.8) fl MCH 29.1 (25.6-32.2) pg MCHC 32.4 (32.2-35.5) g/dl RDW Std Deviation 63.3 H (36.4-46.3) fL Plt Count 87 L (182-369) K/mm3 MPV 8.7 L (9.4-12.3) fl Neut % (Auto) 87.0 H (34.0-71.1) % Lymph % (Auto) 4.1 L (19.3-51.7) % Winkler % (Auto) 7.8 (4.7-12.5) % Eos % (Auto) 0 L (0.7-5.8) Baso % (Auto) 0.1 (0.1-1.2) % Neut # (Auto) 15.36 H (1.56-6.13) K/mm3 Lymph # (Auto) 0.73 L (1.18-3.74) K/mm3 Winkler # (Auto) 1.38 H (0.24-0.36) K/mm3 Eos # (Auto) 0.00 L (0.04-0.36) K/mm3 Baso # (Auto) 0.01 (0.01-0.08) K/mm3 Manual Slide Review Abnormal smear Sodium 149 H (136-145) mEq/L Potassium 4.4 (3.5-5.1) mEq/L Chloride 118 H (98-107) mEq/L Carbon Dioxide 20 L (21-32) mEq/L Anion Gap 15.4 H (5-15) BUN 54 H (7-18) mg/dL Creatinine 2.0 H (0.55-1.02) mg/dL Est Cr Clr Drug Dosing 14.95 mL/min Estimated GFR (MDRD) 24 (>60) mL/min BUN/Creatinine Ratio 27.0 H (14-18) Glucose 154 H (83-115) mg/dL POC Glucose (83-110) mg/dL Calcium 7.9 L (8.5-10.1) mg/dL Magnesium 2.0 (1.8-2.4) mg/dl C-Reactive Protein 4.7 H* (<1.0) mg/dL Med Orders - Current: Current Medications Acetaminophen (Tylenol) 650 mg PO Q4H PRN PRN Reason: Pain (Mild 1-3)/fever Hydrocodone Bitart/Acetaminophen (Tatamy 325-5 Mg) 1 tab PO Q4H PRN PRN Reason: Pain (moderate 4-6) Albuterol/Ipratropium (Duoneb 3.0-0.5 Mg/3 Ml) 3 ml NEB Q4H PRN PRN Reason: Shortness Of Breath/wheezing Last Admin: 02/19/17 09:34 Dose: 3 ml Bisacodyl (Dulcolax) 5 mg PO DAILY PRN PRN Reason: Constipation Dextrose/Water (Dextrose 50% In Water) 50 ml IVPUSH ASDIRECTED PRN PRN Reason: Hypoglycemia Last Admin: 02/16/17 22:22 Dose: 50 ml Docusate Sodium (Colace) 100 mg PO BID PRN PRN Reason: Constipation Famotidine (Pepcid) 20 mg IVPUSH BEDTIME DEMETRI Last Admin: 02/18/17 20:33 Dose: 20 mg Fluticasone Propionate (Flovent Hfa 110 Mcg) 0 gm INH DAILY [facility] Last Admin: 02/18/17 10:44 Dose: Not Given Folic Acid (Folic Acid) 1 mg PO DAILY [facility] Last Admin: 02/19/17 09:00 Dose: 1 mg Hydralazine HCl (Apresoline) 10 mg IVPUSH Q4H PRN PRN Reason: Hypertension Hydrocortisone Sodium Succinate (Solu-Cortef) 100 mg IVPUSH Q8H [facility] Stop: 02/20/17 07:00 Last Admin: 02/19/17 11:04 Dose: 100 mg Hydrocortisone Sodium Succinate (Solu-Cortef) 50 mg IV Q8H DEMETRI Hydromorphone HCl (Dilaudid) 0.25 mg IVPUSH Q2H PRN PRN Reason: Pain (severe 7-10) Norepinephrine Bitartrate 4 mg (/ Dextrose/Water) 250 mls @ 7.5 mls/hr IV TITRATE DEMETRI; 2 MCG/MIN PRN Reason: Protocol Last Titration: 02/17/17 07:45 Dose: 0 mcg/min, 0 mls/hr Levofloxacin/Dextrose 500 mg/ (Premix) 100 mls @ 66.667 mls/hr IV Q48H [facility] Last Admin: 02/18/17 20:33 Dose: 66.667 mls/hr Sodium Chloride (Normal Saline) 1,000 mls @ 50 mls/hr IV ASDIRECTED [facility] Promethazine HCl 6.25 mg/ (Sodium Chloride) 50.25 mls @ 100 mls/hr IV Q6H PRN PRN Reason: Nausea/Vomiting Vancomycin HCl 1 gm/ Sodium (Chloride) 250 mls @ 166.667 mls/hr IV Q48H DEMETRI Last Admin: 02/18/17 18:03 Dose: 166.667 mls/hr Dextrose/Water (Dextrose 5% In Water) 1,000 mls @ 75 mls/hr IV ASDIRECTED [facility] Last Admin: 02/19/17 00:14 Dose: 75 mls/hr Insulin Aspart (Novolog) 0 unit SUBCUT Q6HR DEMETRI PRN Reason: Protocol Last Admin: 02/19/17 06:09 Dose: Not Given Latanoprost (Xalatan 0.005% Oph Soln) 0 ml EYEBOTH BEDTIME [facility] Last Admin: 02/18/17 20:49 Dose: 1 drop Levothyroxine Sodium (Synthroid) 100 mcg PO DAILY [facility] Last Admin: 02/19/17 09:01 Dose: 100 mcg Lorazepam (Ativan) 0.25 mg IV Q6H PRN PRN Reason: Anxiety Magnesium Sulfate (Pharmacy To Dose - Magnesium Replacement) 1 dose .XX ASDIRECTED [facility] Metoprolol Tartrate (Lopressor) 5 mg IVPUSH Q4H PRN PRN Reason: Tachycardia Last Admin: 02/18/17 23:55 Dose: 5 mg Ondansetron HCl (Zofran) 4 mg IV Q6H PRN PRN Reason: Nausea/Vomiting Leflunomide 20mg 0 each PO DAILY [facility] Last Admin: 02/19/17 09:01 Dose: Not Given Polyethylene Glycol (Miralax) 17 gm PO DAILY PRN PRN Reason: Constipation Potassium Chloride (Pharmacy To Dose - Potassium Replacement) 1 dose .XX ASDIRECTED [facility] Risperidone (Risperidal) 0.5 mg PO TID [facility] Last Admin: 02/19/17 09:01 Dose: 0.5 mg Senna/Docusate Sodium (Senna Plus) 1 tab PO BID PRN PRN Reason: Constipation Sodium Chloride (Saline Flush) 10 ml FLUSH ASDIRECTED PRN PRN Reason: Keep Vein Open Last Admin: 02/16/17 13:29 Dose: 10 ml Vancomycin HCl (Pharmacy To Dose - Vancomycin) 1 dose .XX ASDIRECTED [facility] Discontinued Medications Albuterol/Ipratropium (Duoneb 3.0-0.5 Mg/3 Ml) 3 ml NEB ONETIME ONE Stop: 02/16/17 12:59 Last Admin: 02/16/17 13:15 Dose: 3 ml Bumetanide (Bumex) 0.5 mg IVPUSH ONETIME ONE Stop: 02/16/17 22:29 Last Admin: 02/16/17 22:53 Dose: 0.5 mg Calcium Carbonate/Glycine (Tums) 1,000 mg PO ONETIME ONE Stop: 02/16/17 22:28 Last Admin: 02/17/17 00:20 Dose: Not Given Calcium Gluconate (Calcium Gluconate) 1 gm IVPUSH ONETIME ONE Stop: 02/16/17 14:46 Last Admin: 02/16/17 15:17 Dose: 1 gm Dextrose/Water (Dextrose 50% In Water) 50 ml IVPUSH ONETIME ONE Stop: 02/16/17 14:45 Last Admin: 02/16/17 15:12 Dose: 50 ml Furosemide (Lasix) 10 mg IVPUSH NOW ONE Stop: 02/18/17 08:49 Last Admin: 02/18/17 10:10 Dose: 10 mg Lactated Ringer's (Ringers, Lactated) 1,000 mls @ 999 mls/hr IV .BOLUS ONE Stop: 02/16/17 14:10 Last Admin: 02/16/17 13:29 Dose: 999 mls/hr Sodium Chloride (Normal Saline) 750 mls @ 1,000 mls/hr IV .BOLUS ONE Stop: 02/16/17 14:15 Last Admin: 02/16/17 15:30 Dose: 1,000 mls/hr Levofloxacin/Dextrose 750 mg/ (Premix) 150 mls @ 100 mls/hr IV ONETIME ONE Stop: 02/16/17 15:24 Last Admin: 02/16/17 14:11 Dose: 100 mls/hr Sodium Chloride (Normal Saline) Confirm Administered Dose 1,000 mls @ as directed .ROUTE .STK-MED ONE Stop: 02/16/17 14:07 Last Admin: 02/16/17 15:30 Dose: Not Given Levofloxacin/Dextrose (Levaquin In D5w 750 Mg/150 Ml) Confirm Administered Dose 150 mls @ as directed IV .STK-MED ONE Stop: 02/16/17 14:08 Last Admin: 02/16/17 15:29 Dose: Not Given Sodium Chloride (Normal Saline) Confirm Administered Dose 1,000 mls @ as directed .ROUTE .STK-MED ONE Stop: 02/16/17 15:28 Last Admin: 02/16/17 15:30 Dose: Not Given Vancomycin HCl 1 gm/Vancomycin HCl 500 mg/ Sodium Chloride 500 mls @ 125 mls/ hr IV Q24H DEMETRI Stop: 02/16/17 21:59 Last Admin: 02/16/17 18:26 Dose: 125 mls/hr Dextrose/Sodium Chloride (Dextrose 5%-Normal Saline) 1,000 mls @ 15 mls/hr IV ASDIRECTED [facility] Last Admin: 02/16/17 22:58 Dose: 15 mls/hr Magnesium Sulfate (Magnesium Sulfate 2 Gm In Water 50 Ml) 50 mls @ 50 mls/hr IV ONETIME ONE Stop: 02/17/17 00:14 Last Admin: 02/17/17 00:27 Dose: 50 mls/hr Insulin Human Regular (Humulin R) 10 unit SUBCUT BIDAC DEMETRI PRN Reason: Protocol Last Admin: 02/16/17 15:10 Dose: 10 unit Norepinephrine Bitartrate (Levophed) Confirm Administered Dose 4 mg .ROUTE .STK- MED ONE Stop: 02/17/17 04:45 Last Admin: 02/17/17 05:05 Dose: Not Given Pantoprazole Sodium (Protonix Iv) 40 mg IVPUSH ONETIME ONE Stop: 02/16/17 18:12 Last Admin: 02/16/17 19:03 Dose: 40 mg Sodium Polystyrene Sulfonate (Kayexalate) 45 gm RECTAL NOW ONE Stop: 02/16/17 18:22 Last Admin: 02/16/17 18:52 Dose: 45 gm Sodium Polystyrene Sulfonate (Kayexalate) 15 gm PO ONETIME ONE Stop: 02/17/17 16:04 Last Admin: 02/17/17 16:38 Dose: 15 gm - Exam Quality Assessment: Supplemental Oxygen, DVT Prophylaxis General: Alert HEENT: Pupils Equal, Pupils Reactive, EOMI Neck: Supple, Trachea Midline Lungs: Normal Respiratory Effort Cardiovascular: Regular Rate GI/Abdominal Exam: Normal Bowel Sounds, Soft, Non-Tender, No Organomegaly, No Distention (Female) Exam: Deferred Back Exam: Normal Inspection Extremities: Normal Inspection Skin: Warm Neurological: No New Focal Deficit, Normal Speech Psy/Mental Status: Alert - Problem List Review Problem List Initiated/Reviewed/Updated: Yes - My Orders Last 24 Hours: My Active Orders 02/20/17 11:00 Hydrocortisone Sod Succinate [Solu-CORTEF] 50 mg IV Q8H - Plan Plan:: I/P: Acute: Pneumonia -Increasing SOB reported by [place] and family -Risk factors: Confusion from dementia (? aspiration), Hx/o lung ca with resection, Lives in specialty SNF -CXR in ED shows right middle lobe pneumonia; repeat CRX tomorrow -RT to assess and treat/IS -f/u cxr in 48 hrs -Oxygen as needed - titrate -Continue IV Levaquin/Vancomycin for pharmacy to dose Anion gap metabolic acidosis -2/2 sepsis -Anion gap 24.6 --> 22.6 -Carbon Dioxide 14-- 15 -Fluids as ordered Hyperkalemia, Improved -Potassium 6.6 in ED--> now 5.6 -1gm calcium gluconate given in ED -10 unit humulin given in ED -1700ml fluid bolus given in ED -45gm Kayexalate rectally last night; oral dose 15 mg po x1 now -Given 40mg lasix by EMS crew -Hx/o hypokalemia - Avoid lasix due to poor renal function Renal failure, Improving -Acute on chronic -Unsure of baseline - obtain old records -BUN 111, Creatinine 3.6, eGFR 12 -Pharmacy to renally dose medications -Hold nephrotoxic drugs -Fluids -Renal ultrasound to rule out obstructive uropathy- pending -Monitor I&O wagner in place Heart failure -Acute on chronic -Unsure of baseline - obtain old records -Pro-BNP 2506--> repeat level in AM -Echo completed -Monitor as aggressive fluid resuscitation is needed 2/2 above Anemia, Improved -Acute on chronic -Unsure of baseline - obtain old records -Hgb 7.9--> 11.7, Hct 25.3, Heme + stool in ED, INR 1.15, APTT 43 -No reported hematemesis, melena, hematochezia. -S/p 2 units PRBCs transfusion -Monitor H&H -Consider surgical consult Resolved: Septic shock -2/2 pneumonia -Hypotensive -Rales in right lower lobe -Hypothermic on arrival -89.6 F rectally -Vero hugger in place -WBC 14.93 -CRP 4.7 -UA negative -INR 1.15 -APTT 43 -Blood cultures - pending -Serum cortisol level - ordered -procalcitonin - ordered -1700 ml fluid bolus in ED -Levaquin 750 given in ED - continue -Vancomycin - pharmacy to dose -Solu-cortif Q6 -Fluids as ordered -NPO -Critical patient - strict I&O -Wagner in place Hypotension -2/2 above -BP 61/45 on arrival -HR 60 -Fluid bolus given in ED -Fluids as ordered -Norepinephrine drip - titrate per protocol Chronic: Hypothyroidism HLD Hypokalemia Dementia w/o behavioral disturbance Mild cognitive impairment Insomnia Glaucoma CAD GERD RA Lower back pain OA Visual hallucinations Hx/o TIA Hx/o VA Hx/o lung neoplasm with lobectomy Plan: She is slowly improving clinically Continue current treatment Continue PT/OT/Spiritual care Swallow Eval Consult Routine AM labs GI Prophylaxis protonix DVT/PE prophylaxis: TEDS, ambulation as tolerated CM/SW for discharge planning Other orders as indicated above Prognosis is guarded at this point. Code status: DNR. Her PCP is Dr. Walden at . She recently transferred care from Dr. Grullon in [place]. LOS>96 hours with severe infection/sepsis
[2017-02-19] MEDS ORDERED: Bisacodyl 10 MG Supp RECTAL ONE (18:15)
[2017-02-19] MEDS: Fluticasone Propionate 110 MCG/Puff 12 GM Inhaler INH SCH (18:50)
[2017-02-19] MEDS: Famotidine 20 MG/2 ML SDV IVPUSH SCH (20:41)
[2017-02-19] MEDS: Metoprolol Tartrate 25 MG Tab PO SCH (20:41)
[2017-02-19] MEDS: hydrALAZINE 20 MG/ML SDV IVPUSH PRN (20:41)
[2017-02-19] MEDS: Latanoprost 0.005% Ophth Soln 2.5 ML Bottle EYEBOTH SCH (20:50)
[2017-02-20] MEDS: Albuterol/Ipratropium 3.0-0.5 MG/3 ML Neb Soln NEB PRN (00:07)
[2017-02-20] MEDS: Hydrocortisone Sodium Succinate 100 MG/2 ML SDV IVPUSH SCH (02:07)
[2017-02-20] MEDS: Dextrose 5% in Water 1,000 ML IV SCH ×2 (02:07→16:07)
[2017-02-20] MEDS: Insulin Aspart 100 Units/ML 3 ML Pen SUBCUT SCH ×3 (06:07→17:59)
[2017-02-20] MEDS: Metoprolol Tartrate 25 MG Tab PO SCH ×2 (08:36→20:21)
[2017-02-20] MEDS: Levothyroxine 100 MCG Tab PO SCH (08:36)
[2017-02-20] MEDS: risperiDONE 0.5 MG Tab PO SCH ×3 (08:39→20:22)
[2017-02-20] MEDS: Folic Acid 1 MG Tab PO SCH (08:39)
[2017-02-20] MEDS: Hydrocortisone Sodium Succinate 100 MG/2 ML SDV IV SCH ×2 (11:55→17:59)
[2017-02-20] MEDS: Fluticasone Propionate 110 MCG/Puff 12 GM Inhaler INH SCH (11:58)
[2017-02-20] MEDS ORDERED: Magnesium Sulfate/Water 2 GM in Premix Bag 1 BAG IV ONE (16:02)
--- NOTE | 2017-02-20 16:07 | PCM.PN ---
- General Info Date of Service: 02/20/17 Functional Status: Reports: Pain Controlled, Tolerating Diet - Review of Systems General: Reports: Weakness HEENT: Reports: No Symptoms Pulmonary: Reports: No Symptoms Cardiovascular: Reports: No Symptoms Gastrointestinal: Reports: No Symptoms Genitourinary: Reports: No Symptoms Musculoskeletal: Reports: No Symptoms Skin: Reports: No Symptoms Neurological: Reports: No Symptoms Psychiatric: Reports: No Symptoms - Patient Data Vitals - Most Recent: Last Vital Signs Temp 36.6 C 02/20/17 12:08 Pulse 85 02/20/17 12:09 Resp 24 H 02/20/17 07:29 BP 109/73 02/20/17 12:08 Pulse Ox 96 02/20/17 12:09 Weight - Most Recent: 60.237 kg I&O - Last 24 Hours: Intake & Output 02/20/17 02/20/17 02/20/17 06:59 14:59 22:59 Intake Total 775 Output Total 450 Balance 325 Lab Results Last 24 Hours: Laboratory Results - last 24 hr 02/19/17 02/19/17 02/20/17 Range/Units 18:00 23:45 06:05 WBC (3.98-10.04) K/mm3 RBC (3.98-5.22) M/mm3 Hgb (11.2-15.7) gm/L Hct (34.1-44.9) % MCV (79.4-94.8) fl MCH (25.6-32.2) pg MCHC (32.2-35.5) g/dl RDW Std Deviation (36.4-46.3) fL Plt Count (182-369) K/mm3 Neut % (Auto) (34.0-71.1) % Lymph % (Auto) (19.3-51.7) % [place] % (Auto) (4.7-12.5) % Eos % (Auto) (0.7-5.8) Baso % (Auto) (0.1-1.2) % Neut # (Auto) (1.56-6.13) K/mm3 Lymph # (Auto) (1.18-3.74) K/mm3 [place] # (Auto) (0.24-0.36) K/mm3 Eos # (Auto) (0.04-0.36) K/mm3 Baso # (Auto) (0.01-0.08) K/mm3 Manual Slide Review Sodium (136-145) mEq/L Potassium (3.5-5.1) mEq/L Chloride (98-107) mEq/L Carbon Dioxide (21-32) mEq/L Anion Gap (5-15) BUN (7-18) mg/dL Creatinine (0.55-1.02) mg/dL Est Cr Clr Drug Dosing mL/min Estimated GFR (MDRD) (>60) mL/min BUN/Creatinine Ratio (14-18) Glucose (83-115) mg/dL POC Glucose 214 H 170 H 161 H (83-110) mg/dL Calcium (8.5-10.1) mg/dL Magnesium (1.8-2.4) mg/dl C-Reactive Protein (<1.0) mg/dL 02/20/17 02/20/17 02/20/17 Range/Units 06:28 06:28 07:26 WBC 17.29 H (3.98-10.04) K/mm3 RBC 3.77 L (3.98-5.22) M/mm3 Hgb 10.8 L (11.2-15.7) gm/L Hct 33.9 L (34.1-44.9) % MCV 89.9 (79.4-94.8) fl MCH 28.6 (25.6-32.2) pg MCHC 31.9 L (32.2-35.5) g/dl RDW Std Deviation 64.5 H (36.4-46.3) fL Plt Count 52 L (182-369) K/mm3 Neut % (Auto) 86.1 H (34.0-71.1) % Lymph % (Auto) 3.5 L (19.3-51.7) % [place] % (Auto) 8.0 (4.7-12.5) % Eos % (Auto) 0 L (0.7-5.8) Baso % (Auto) 0.1 (0.1-1.2) % Neut # (Auto) 14.88 H (1.56-6.13) K/mm3 Lymph # (Auto) 0.61 L (1.18-3.74) K/mm3 [place] # (Auto) 1.39 H (0.24-0.36) K/mm3 Eos # (Auto) 0.00 L (0.04-0.36) K/mm3 Baso # (Auto) 0.02 (0.01-0.08) K/mm3 Manual Slide Review Abnormal smear Sodium 145 (136-145) mEq/L Potassium 4.5 (3.5-5.1) mEq/L Chloride 114 H (98-107) mEq/L Carbon Dioxide 19 L (21-32) mEq/L Anion Gap 16.5 H (5-15) BUN 70 H (7-18) mg/dL Creatinine 1.6 H (0.55-1.02) mg/dL Est Cr Clr Drug Dosing 18.69 mL/min Estimated GFR (MDRD) 30 (>60) mL/min BUN/Creatinine Ratio 43.8 H (14-18) Glucose 151 H (83-115) mg/dL POC Glucose 144 H (83-110) mg/dL Calcium 7.7 L (8.5-10.1) mg/dL Magnesium 1.9 (1.8-2.4) mg/dl C-Reactive Protein 1.6 H* (<1.0) mg/dL 02/20/17 02/20/17 Range/Units 11:54 12:17 WBC (3.98-10.04) K/mm3 RBC (3.98-5.22) M/mm3 Hgb (11.2-15.7) gm/L Hct (34.1-44.9) % MCV (79.4-94.8) fl MCH (25.6-32.2) pg MCHC (32.2-35.5) g/dl RDW Std Deviation (36.4-46.3) fL Plt Count (182-369) K/mm3 Neut % (Auto) (34.0-71.1) % Lymph % (Auto) (19.3-51.7) % [place] % (Auto) (4.7-12.5) % Eos % (Auto) (0.7-5.8) Baso % (Auto) (0.1-1.2) % Neut # (Auto) (1.56-6.13) K/mm3 Lymph # (Auto) (1.18-3.74) K/mm3 [place] # (Auto) (0.24-0.36) K/mm3 Eos # (Auto) (0.04-0.36) K/mm3 Baso # (Auto) (0.01-0.08) K/mm3 Manual Slide Review Sodium (136-145) mEq/L Potassium (3.5-5.1) mEq/L Chloride (98-107) mEq/L Carbon Dioxide (21-32) mEq/L Anion Gap (5-15) BUN (7-18) mg/dL Creatinine (0.55-1.02) mg/dL Est Cr Clr Drug Dosing mL/min Estimated GFR (MDRD) (>60) mL/min BUN/Creatinine Ratio (14-18) Glucose (83-115) mg/dL POC Glucose 126 H 104 (83-110) mg/dL Calcium (8.5-10.1) mg/dL Magnesium (1.8-2.4) mg/dl C-Reactive Protein (<1.0) mg/dL Med Orders - Current: Current Medications Acetaminophen (Tylenol) 650 mg PO Q4H PRN PRN Reason: Pain (Mild 1-3)/fever Hydrocodone Bitart/Acetaminophen ([place] 325-5 Mg) 1 tab PO Q4H PRN PRN Reason: Pain (moderate 4-6) Albuterol/Ipratropium (Duoneb 3.0-0.5 Mg/3 Ml) 3 ml NEB Q4H PRN PRN Reason: Shortness Of Breath/wheezing Last Admin: 02/20/17 00:07 Dose: 3 ml Bisacodyl (Dulcolax) 5 mg PO DAILY PRN PRN Reason: Constipation Dextrose/Water (Dextrose 50% In Water) 50 ml IVPUSH ASDIRECTED PRN PRN Reason: Hypoglycemia Last Admin: 02/16/17 22:22 Dose: 50 ml Docusate Sodium (Colace) 100 mg PO BID PRN PRN Reason: Constipation Famotidine (Pepcid) 20 mg IVPUSH BEDTIME [facility] Last Admin: 02/19/17 20:41 Dose: 20 mg Fluticasone Propionate (Flovent Hfa 110 Mcg) 0 gm INH DAILY [facility] Last Admin: 02/20/17 11:58 Dose: Not Given Folic Acid (Folic Acid) 1 mg PO DAILY [facility] Last Admin: 02/20/17 08:39 Dose: 1 mg Hydralazine HCl (Apresoline) 10 mg IVPUSH Q4H PRN PRN Reason: Hypertension Last Admin: 02/19/17 20:41 Dose: 10 mg Hydrocortisone Sodium Succinate (Solu-Cortef) 50 mg IV Q8H [facility] Last Admin: 02/20/17 11:55 Dose: 50 mg Hydromorphone HCl (Dilaudid) 0.25 mg IVPUSH Q2H PRN PRN Reason: Pain (severe 7-10) Levofloxacin/Dextrose 500 mg/ (Premix) 100 mls @ 66.667 mls/hr IV Q48H [facility] Last Admin: 02/18/17 20:33 Dose: 66.667 mls/hr Promethazine HCl 6.25 mg/ (Sodium Chloride) 50.25 mls @ 100 mls/hr IV Q6H PRN PRN Reason: Nausea/Vomiting Vancomycin HCl 1 gm/ Sodium (Chloride) 250 mls @ 166.667 mls/hr IV Q48H [facility] Last Admin: 02/18/17 18:03 Dose: 166.667 mls/hr Dextrose/Water (Dextrose 5% In Water) 1,000 mls @ 75 mls/hr IV ASDIRECTED [facility] Last Admin: 02/20/17 02:07 Dose: 75 mls/hr Magnesium Sulfate 2 gm/ Premix 50 mls @ 25 mls/hr IV ONETIME ONE Stop: 02/20/17 18:01 Insulin Aspart (Novolog) 0 unit SUBCUT Q6HR DEMETRI PRN Reason: Protocol Last Admin: 02/20/17 16:01 Dose: Not Given Latanoprost (Xalatan 0.005% Oph Soln) 0 ml EYEBOTH BEDTIME [facility] Last Admin: 02/19/17 20:50 Dose: 1 drop Levothyroxine Sodium (Synthroid) 100 mcg PO DAILY [facility] Last Admin: 02/20/17 08:36 Dose: 100 mcg Lorazepam (Ativan) 0.25 mg IV Q6H PRN PRN Reason: Anxiety Magnesium Sulfate (Pharmacy To Dose - Magnesium Replacement) 1 dose .XX ASDIRECTED [facility] Metoprolol Tartrate (Lopressor) 5 mg IVPUSH Q4H PRN PRN Reason: Tachycardia Last Admin: 02/18/17 23:55 Dose: 5 mg Metoprolol Tartrate (Lopressor) 25 mg PO BID [facility] Last Admin: 02/20/17 08:36 Dose: 25 mg Ondansetron HCl (Zofran) 4 mg IV Q6H PRN PRN Reason: Nausea/Vomiting Leflunomide 20mg 0 each PO DAILY [facility] Last Admin: 02/20/17 08:40 Dose: Not Given Polyethylene Glycol (Miralax) 17 gm PO DAILY PRN PRN Reason: Constipation Potassium Chloride (Pharmacy To Dose - Potassium Replacement) 1 dose .XX ASDIRECTED [facility] Risperidone (Risperidal) 0.5 mg PO TID [facility] Last Admin: 02/20/17 16:01 Dose: 0.5 mg Senna/Docusate Sodium (Senna Plus) 1 tab PO BID PRN PRN Reason: Constipation Sodium Chloride (Saline Flush) 10 ml FLUSH ASDIRECTED PRN PRN Reason: Keep Vein Open Last Admin: 02/16/17 13:29 Dose: 10 ml Vancomycin HCl (Pharmacy To Dose - Vancomycin) 1 dose .XX ASDIRECTED [facility] Discontinued Medications Albuterol/Ipratropium (Duoneb 3.0-0.5 Mg/3 Ml) 3 ml NEB ONETIME ONE Stop: 02/16/17 12:59 Last Admin: 02/16/17 13:15 Dose: 3 ml Bisacodyl (Dulcolax) 10 mg RECTAL ONETIME ONE Stop: 02/19/17 18:16 Last Admin: 02/19/17 18:42 Dose: 10 mg Bumetanide (Bumex) 0.5 mg IVPUSH ONETIME ONE Stop: 02/16/17 22:29 Last Admin: 02/16/17 22:53 Dose: 0.5 mg Calcium Carbonate/Glycine (Tums) 1,000 mg PO ONETIME ONE Stop: 02/16/17 22:28 Last Admin: 02/17/17 00:20 Dose: Not Given Calcium Gluconate (Calcium Gluconate) 1 gm IVPUSH ONETIME ONE Stop: 02/16/17 14:46 Last Admin: 02/16/17 15:17 Dose: 1 gm Dextrose/Water (Dextrose 50% In Water) 50 ml IVPUSH ONETIME ONE Stop: 02/16/17 14:45 Last Admin: 02/16/17 15:12 Dose: 50 ml Furosemide (Lasix) 10 mg IVPUSH NOW ONE Stop: 02/18/17 08:49 Last Admin: 02/18/17 10:10 Dose: 10 mg Hydrocortisone Sodium Succinate (Solu-Cortef) 100 mg IVPUSH Q8H [facility]ET[facility] Stop: 02/20/17 07:00 Last Admin: 02/20/17 02:07 Dose: 100 mg Lactated Ringer's (Ringers, Lactated) 1,000 mls @ 999 mls/hr IV .BOLUS ONE Stop: 02/16/17 14:10 Last Admin: 02/16/17 13:29 Dose: 999 mls/hr Sodium Chloride (Normal Saline) 750 mls @ 1,000 mls/hr IV .BOLUS ONE Stop: 02/16/17 14:15 Last Admin: 02/16/17 15:30 Dose: 1,000 mls/hr Levofloxacin/Dextrose 750 mg/ (Premix) 150 mls @ 100 mls/hr IV ONETIME ONE Stop: 02/16/17 15:24 Last Admin: 02/16/17 14:11 Dose: 100 mls/hr Norepinephrine Bitartrate 4 mg (/ Dextrose/Water) 250 mls @ 7.5 mls/hr IV TITRATE DEMETRI; 2 MCG/MIN PRN Reason: Protocol Last Titration: 02/17/17 07:45 Dose: 0 mcg/min, 0 mls/hr Sodium Chloride (Normal Saline) Confirm Administered Dose 1,000 mls @ as directed .ROUTE .STK-MED ONE Stop: 02/16/17 14:07 Last Admin: 02/16/17 15:30 Dose: Not Given Levofloxacin/Dextrose (Levaquin In D5w 750 Mg/150 Ml) Confirm Administered Dose 150 mls @ as directed IV .STK-MED ONE Stop: 02/16/17 14:08 Last Admin: 02/16/17 15:29 Dose: Not Given Sodium Chloride (Normal Saline) Confirm Administered Dose 1,000 mls @ as directed .ROUTE .STK-MED ONE Stop: 02/16/17 15:28 Last Admin: 02/16/17 15:30 Dose: Not Given Vancomycin HCl 1 gm/Vancomycin HCl 500 mg/ Sodium Chloride 500 mls @ 125 mls/ hr IV Q24H DEMETRI Stop: 02/16/17 21:59 Last Admin: 02/16/17 18:26 Dose: 125 mls/hr Sodium Chloride (Normal Saline) 1,000 mls @ 50 mls/hr IV ASDIRECTED [facility] Dextrose/Sodium Chloride (Dextrose 5%-Normal Saline) 1,000 mls @ 15 mls/hr IV ASDIRECTED [facility] Last Admin: 02/16/17 22:58 Dose: 15 mls/hr Magnesium Sulfate (Magnesium Sulfate 2 Gm In Water 50 Ml) 50 mls @ 50 mls/hr IV ONETIME ONE Stop: 02/17/17 00:14 Last Admin: 02/17/17 00:27 Dose: 50 mls/hr Insulin Human Regular (Humulin R) 10 unit SUBCUT BIDAC DEMETRI PRN Reason: Protocol Last Admin: 02/16/17 15:10 Dose: 10 unit Norepinephrine Bitartrate (Levophed) Confirm Administered Dose 4 mg .ROUTE .STK- MED ONE Stop: 02/17/17 04:45 Last Admin: 02/17/17 05:05 Dose: Not Given Pantoprazole Sodium (Protonix Iv) 40 mg IVPUSH ONETIME ONE Stop: 02/16/17 18:12 Last Admin: 02/16/17 19:03 Dose: 40 mg Sodium Polystyrene Sulfonate (Kayexalate) 45 gm RECTAL NOW ONE Stop: 02/16/17 18:22 Last Admin: 02/16/17 18:52 Dose: 45 gm Sodium Polystyrene Sulfonate (Kayexalate) 15 gm PO ONETIME ONE Stop: 02/17/17 16:04 Last Admin: 02/17/17 16:38 Dose: 15 gm - Exam Quality Assessment: DVT Prophylaxis General: Alert, Oriented, No Acute Distress HEENT: Pupils Equal, Pupils Reactive, EOMI Neck: Supple, Trachea Midline, No JVD Lungs: Normal Respiratory Effort, Decreased Breath Sounds Cardiovascular: Regular Rate GI/Abdominal Exam: Normal Bowel Sounds, Soft, Non-Tender, No Organomegaly, No Distention (Female) Exam: Deferred Back Exam: Normal Inspection Extremities: Normal Inspection Skin: Warm Neurological: No New Focal Deficit, Normal Gait Psy/Mental Status: Alert - Problem List Review Problem List Initiated/Reviewed/Updated: Yes - My Orders Last 24 Hours: My Active Orders 02/20/17 11:00 Hydrocortisone Sod Succinate [Solu-CORTEF] 50 mg IV Q8H 02/20/17 16:02 Magnesium Sulfate/Water [Magnesium Sulfate 2 GM in Water 50 ML] 2 gm Premix Bag 1 bag IV ONETIME 02/20/17 18:00 VANCOMYCIN TROUGH [CHEM] Routine 02/19/17 21:00 Metoprolol Tartrate [Lopressor] 25 mg PO BID - Plan Plan:: I/P: Acute: Pneumonia -Increasing SOB reported by [place] and family -Risk factors: Confusion from dementia (? aspiration), Hx/o lung ca with resection, Lives in specialty SNF -CXR in ED shows right middle lobe pneumonia; repeat CRX tomorrow -RT to assess and treat/IS -f/u cxr in 48 hrs -Oxygen as needed - titrate -Continue IV Levaquin/Vancomycin for pharmacy to dose Anion gap metabolic acidosis -2/2 sepsis -Anion gap 24.6 --> 22.6 -Carbon Dioxide 14-- 15 -Fluids as ordered Hyperkalemia, Improved -Potassium 6.6 in ED--> now 5.6 -1gm calcium gluconate given in ED -10 unit humulin given in ED -1700ml fluid bolus given in ED -45gm Kayexalate rectally last night; oral dose 15 mg po x1 now -Given 40mg lasix by EMS crew -Hx/o hypokalemia - Avoid lasix due to poor renal function Renal failure, Improving -Acute on chronic -Unsure of baseline - obtain old records -BUN 111, Creatinine 3.6, eGFR 12 -Pharmacy to renally dose medications -Hold nephrotoxic drugs -Fluids -Renal ultrasound to rule out obstructive uropathy- pending -Monitor I&O wagner in place Heart failure -Acute on chronic -Unsure of baseline - obtain old records -Pro-BNP 2506--> repeat level in AM -Echo completed -Monitor as aggressive fluid resuscitation is needed 2/2 above Anemia, Improved -Acute on chronic -Unsure of baseline - obtain old records -Hgb 7.9--> 11.7, Hct 25.3, Heme + stool in ED, INR 1.15, APTT 43 -No reported hematemesis, melena, hematochezia. -S/p 2 units PRBCs transfusion -Monitor H&H -Consider surgical consult Resolved: Septic shock -2/2 pneumonia -Hypotensive -Rales in right lower lobe -Hypothermic on arrival -89.6 F rectally -Vero aggarwalgger in place -WBC 14.93 -CRP 4.7 -UA negative -INR 1.15 -APTT 43 -Blood cultures - pending -Serum cortisol level - ordered -procalcitonin - ordered -1700 ml fluid bolus in ED -Levaquin 750 given in ED - continue -Vancomycin - pharmacy to dose -Solu-cortif Q6 -Fluids as ordered -NPO -Critical patient - strict I&O -Wagner in place Hypotension -2/2 above -BP 61/45 on arrival -HR 60 -Fluid bolus given in ED -Fluids as ordered -Norepinephrine drip - titrate per protocol Chronic: Hypothyroidism HLD Hypokalemia Dementia w/o behavioral disturbance Mild cognitive impairment Insomnia Glaucoma CAD GERD RA Lower back pain OA Visual hallucinations Hx/o TIA Hx/o MO Hx/o lung neoplasm with lobectomy Plan: She is slowly improving clinically Continue current treatment Continue PT/OT/Spiritual care Swallow Eval Consult Routine AM labs GI Prophylaxis protonix DVT/PE prophylaxis: TEDS, ambulation as tolerated CM/SW for discharge planning Other orders as indicated above Prognosis is guarded at this point. Code status: DNR. Her PCP is Dr. Walden at [facility]. She recently transferred care from Dr. Grullon in [place]. LOS>96 hours with severe infection/sepsis
[2017-02-20] MEDS: Famotidine 20 MG/2 ML SDV IVPUSH SCH (20:17)
[2017-02-20] MEDS: Latanoprost 0.005% Ophth Soln 2.5 ML Bottle EYEBOTH SCH (20:22)
[2017-02-20] MEDS: Levofloxacin/Dextrose 5%-Water 500 MG in Premix Bag 1 BAG IV SCH (22:06)
[2017-02-21] MEDS: Hydrocortisone Sodium Succinate 100 MG/2 ML SDV IV SCH ×3 (03:07→18:00)
[2017-02-21] MEDS: Dextrose 5% in Water 1,000 ML IV SCH ×2 (04:26→17:47)
[2017-02-21] MEDS: Metoprolol Tartrate 25 MG Tab PO SCH ×2 (09:37→21:46)
[2017-02-21] MEDS: risperiDONE 0.5 MG Tab PO SCH ×3 (09:42→21:44)
[2017-02-21] MEDS: Levothyroxine 100 MCG Tab PO SCH (09:47)
[2017-02-21] MEDS: Folic Acid 1 MG Tab PO SCH (09:47)
[2017-02-21] MEDS: Insulin Aspart 100 Units/ML 3 ML Pen SUBCUT SCH ×3 (09:47→17:52)
[2017-02-21] MEDS ORDERED: HYDROmorphone 0.5 MG/0.5 ML Syringe IVPUSH PRN (10:19)
[2017-02-21] MEDS: Albuterol/Ipratropium 3.0-0.5 MG/3 ML Neb Soln NEB PRN (11:10)
[2017-02-21] MEDS: Fluticasone Propionate 110 MCG/Puff 12 GM Inhaler INH SCH (13:11)
--- NOTE | 2017-02-21 15:45 | PCM.PN ---
- General Info Date of Service: 02/21/17 Admission Dx/Problem (Free Text): Septic Shock and PNA Subjective Update: Follow Up Functional Status: Reports: Pain Controlled, Tolerating Diet, Ambulating, Urinating, Incentive Spirometry. Denies: New Symptoms - Review of Systems General: Reports: Weakness, Fatigue HEENT: Reports: No Symptoms Pulmonary: Reports: No Symptoms Cardiovascular: Reports: No Symptoms Gastrointestinal: Reports: No Symptoms Genitourinary: Reports: No Symptoms Musculoskeletal: Reports: No Symptoms Skin: Reports: No Symptoms Neurological: Reports: No Symptoms Psychiatric: Reports: No Symptoms - Patient Data Vitals - Most Recent: Last Vital Signs Temp 96.8 F 02/21/17 12:10 Pulse 75 02/21/17 12:10 Resp 16 02/21/17 12:10 BP 109/61 02/21/17 12:10 Pulse Ox 91 L 02/21/17 12:10 Weight - Most Recent: 135 lb 6.4 oz I&O - Last 24 Hours: Intake & Output 02/21/17 02/21/17 02/21/17 06:59 14:59 22:59 Intake Total 1129 120 Output Total 450 Balance 679 120 Lab Results Last 24 Hours: Laboratory Results - last 24 hr 02/20/17 02/20/17 02/21/17 Range/Units 17:16 18:38 06:00 Sodium 142 (136-145) mEq/L Potassium 4.1 (3.5-5.1) mEq/L Chloride 112 H (98-107) mEq/L Carbon Dioxide 19 L (21-32) mEq/L Anion Gap 15.1 H (5-15) BUN 69 H (7-18) mg/dL Creatinine 1.3 H (0.55-1.02) mg/dL Est Cr Clr Drug Dosing 23.01 mL/min Estimated GFR (MDRD) 39 (>60) mL/min BUN/Creatinine Ratio 53.1 H (14-18) Glucose 126 H (83-115) mg/dL POC Glucose 152 H (83-110) mg/dL Calcium 7.6 L (8.5-10.1) mg/dL Magnesium 2.5 H (1.8-2.4) mg/dl C-Reactive Protein 0.3 (<1.0) mg/dL Vancomycin Trough 9.9 L (10.0-20.0) 02/21/17 02/21/17 Range/Units 06:04 12:13 Sodium (136-145) mEq/L Potassium (3.5-5.1) mEq/L Chloride (98-107) mEq/L Carbon Dioxide (21-32) mEq/L Anion Gap (5-15) BUN (7-18) mg/dL Creatinine (0.55-1.02) mg/dL Est Cr Clr Drug Dosing mL/min Estimated GFR (MDRD) (>60) mL/min BUN/Creatinine Ratio (14-18) Glucose (83-115) mg/dL POC Glucose 127 H 135 H (83-110) mg/dL Calcium (8.5-10.1) mg/dL Magnesium (1.8-2.4) mg/dl C-Reactive Protein (<1.0) mg/dL Vancomycin Trough (10.0-20.0) Med Orders - Current: Current Medications Acetaminophen (Tylenol) 650 mg PO Q4H PRN PRN Reason: Pain (Mild 1-3)/fever Hydrocodone Bitart/Acetaminophen ([place] 325-5 Mg) 1 tab PO Q4H PRN PRN Reason: Pain (moderate 4-6) Albuterol/Ipratropium (Duoneb 3.0-0.5 Mg/3 Ml) 3 ml NEB Q4H PRN PRN Reason: Shortness Of Breath/wheezing Last Admin: 02/21/17 11:10 Dose: 3 ml Bisacodyl (Dulcolax) 5 mg PO DAILY PRN PRN Reason: Constipation Dextrose/Water (Dextrose 50% In Water) 50 ml IVPUSH ASDIRECTED PRN PRN Reason: Hypoglycemia Last Admin: 02/16/17 22:22 Dose: 50 ml Docusate Sodium (Colace) 100 mg PO BID PRN PRN Reason: Constipation Famotidine (Pepcid) 20 mg PO BEDTIME DEMETRI Flunisolide (Nasalide Nasal [place]) 0 ml MANNY BID DEMETRI Last Admin: 02/21/17 12:15 Dose: 1 spray Folic Acid (Folic Acid) 1 mg PO DAILY [facility] Last Admin: 02/21/17 09:47 Dose: Not Given Hydralazine HCl (Apresoline) 10 mg IVPUSH Q4H PRN PRN Reason: Hypertension Last Admin: 02/19/17 20:41 Dose: 10 mg Hydrocortisone Sodium Succinate (Solu-Cortef) 50 mg IV Q8H [facility] Last Admin: 02/21/17 12:03 Dose: 50 mg Hydromorphone HCl (Dilaudid) 0.25 mg IVPUSH Q2H PRN PRN Reason: Pain (severe 7-10) Levofloxacin/Dextrose 500 mg/ (Premix) 100 mls @ 66.667 mls/hr IV Q48H [facility] Last Admin: 02/20/17 22:06 Dose: 66.667 mls/hr Promethazine HCl 6.25 mg/ (Sodium Chloride) 50.25 mls @ 100 mls/hr IV Q6H PRN PRN Reason: Nausea/Vomiting Dextrose/Water (Dextrose 5% In Water) 1,000 mls @ 75 mls/hr IV ASDIRECTED [facility] Last Admin: 02/21/17 04:26 Dose: 75 mls/hr Vancomycin HCl 1 gm/Vancomycin HCl 500 mg/ Sodium Chloride 500 mls @ 333 mls/ hr IV Q48H [facility] Insulin Aspart (Novolog) 0 unit SUBCUT TIDMEALS [facility] PRN Reason: Protocol Last Admin: 02/21/17 12:14 Dose: Not Given Latanoprost (Xalatan 0.005% Oph Soln) 0 ml EYEBOTH BEDTIME [facility] Last Admin: 02/20/17 20:22 Dose: 1 drop Levothyroxine Sodium (Synthroid) 100 mcg PO DAILY [facility] Last Admin: 02/21/17 09:47 Dose: Not Given Lorazepam (Ativan) 0.25 mg IV Q6H PRN PRN Reason: Anxiety Metoprolol Tartrate (Lopressor) 5 mg IVPUSH Q4H PRN PRN Reason: Tachycardia Last Admin: 02/18/17 23:55 Dose: 5 mg Metoprolol Tartrate (Lopressor) 25 mg PO BID [facility] Last Admin: 02/21/17 09:37 Dose: 25 mg Ondansetron HCl (Zofran) 4 mg IV Q6H PRN PRN Reason: Nausea/Vomiting Leflunomide 20mg 0 each PO DAILY [facility] Last Admin: 02/21/17 09:47 Dose: Not Given Polyethylene Glycol (Miralax) 17 gm PO DAILY PRN PRN Reason: Constipation Risperidone (Risperidal) 0.5 mg PO TID [facility] Last Admin: 02/21/17 09:42 Dose: 0.5 mg Senna/Docusate Sodium (Senna Plus) 1 tab PO BID PRN PRN Reason: Constipation Sodium Chloride (Saline Flush) 10 ml FLUSH ASDIRECTED PRN PRN Reason: Keep Vein Open Last Admin: 02/16/17 13:29 Dose: 10 ml Vancomycin HCl (Pharmacy To Dose - Vancomycin) 1 dose .XX ASDIRECTED DEMETRI Discontinued Medications Albuterol/Ipratropium (Duoneb 3.0-0.5 Mg/3 Ml) 3 ml NEB ONETIME ONE Stop: 02/16/17 12:59 Last Admin: 02/16/17 13:15 Dose: 3 ml Bisacodyl (Dulcolax) 10 mg RECTAL ONETIME ONE Stop: 02/19/17 18:16 Last Admin: 02/19/17 18:42 Dose: 10 mg Bumetanide (Bumex) 0.5 mg IVPUSH ONETIME ONE Stop: 02/16/17 22:29 Last Admin: 02/16/17 22:53 Dose: 0.5 mg Calcium Carbonate/Glycine (Tums) 1,000 mg PO ONETIME ONE Stop: 02/16/17 22:28 Last Admin: 02/17/17 00:20 Dose: Not Given Calcium Gluconate (Calcium Gluconate) 1 gm IVPUSH ONETIME ONE Stop: 02/16/17 14:46 Last Admin: 02/16/17 15:17 Dose: 1 gm Dextrose/Water (Dextrose 50% In Water) 50 ml IVPUSH ONETIME ONE Stop: 02/16/17 14:45 Last Admin: 02/16/17 15:12 Dose: 50 ml Famotidine (Pepcid) 20 mg IVPUSH BEDTIME [facility] Last Admin: 02/20/17 20:17 Dose: 20 mg Fluticasone Propionate (Flovent Hfa 110 Mcg) 0 gm INH DAILY [facility] Last Admin: 02/21/17 13:11 Dose: Not Given Furosemide (Lasix) 10 mg IVPUSH NOW ONE Stop: 02/18/17 08:49 Last Admin: 02/18/17 10:10 Dose: 10 mg Hydrocortisone Sodium Succinate (Solu-Cortef) 100 mg IVPUSH Q8H [facility] Stop: 02/20/17 07:00 Last Admin: 02/20/17 02:07 Dose: 100 mg Hydromorphone HCl (Dilaudid) 0.25 mg IVPUSH Q2H PRN PRN Reason: Pain (severe 7-10) Lactated Ringer's (Ringers, Lactated) 1,000 mls @ 999 mls/hr IV .BOLUS ONE Stop: 02/16/17 14:10 Last Admin: 02/16/17 13:29 Dose: 999 mls/hr Sodium Chloride (Normal Saline) 750 mls @ 1,000 mls/hr IV .BOLUS ONE Stop: 02/16/17 14:15 Last Admin: 02/16/17 15:30 Dose: 1,000 mls/hr Levofloxacin/Dextrose 750 mg/ (Premix) 150 mls @ 100 mls/hr IV ONETIME ONE Stop: 02/16/17 15:24 Last Admin: 02/16/17 14:11 Dose: 100 mls/hr Norepinephrine Bitartrate 4 mg (/ Dextrose/Water) 250 mls @ 7.5 mls/hr IV TITRATE DEMETRI; 2 MCG/MIN PRN Reason: Protocol Last Titration: 02/17/17 07:45 Dose: 0 mcg/min, 0 mls/hr Sodium Chloride (Normal Saline) Confirm Administered Dose 1,000 mls @ as directed .ROUTE .STK-MED ONE Stop: 02/16/17 14:07 Last Admin: 02/16/17 15:30 Dose: Not Given Levofloxacin/Dextrose (Levaquin In D5w 750 Mg/150 Ml) Confirm Administered Dose 150 mls @ as directed IV .STK-MED ONE Stop: 02/16/17 14:08 Last Admin: 02/16/17 15:29 Dose: Not Given Sodium Chloride (Normal Saline) Confirm Administered Dose 1,000 mls @ as directed .ROUTE .STK-MED ONE Stop: 02/16/17 15:28 Last Admin: 02/16/17 15:30 Dose: Not Given Vancomycin HCl 1 gm/Vancomycin HCl 500 mg/ Sodium Chloride 500 mls @ 125 mls/ hr IV Q24H DEMETRI Stop: 02/16/17 21:59 Last Admin: 02/16/17 18:26 Dose: 125 mls/hr Sodium Chloride (Normal Saline) 1,000 mls @ 50 mls/hr IV ASDIRECTED DEMETRI Dextrose/Sodium Chloride (Dextrose 5%-Normal Saline) 1,000 mls @ 15 mls/hr IV ASDIRECTED [facility] Last Admin: 02/16/17 22:58 Dose: 15 mls/hr Magnesium Sulfate (Magnesium Sulfate 2 Gm In Water 50 Ml) 50 mls @ 50 mls/hr IV ONETIME ONE Stop: 02/17/17 00:14 Last Admin: 02/17/17 00:27 Dose: 50 mls/hr Vancomycin HCl 1 gm/ Sodium (Chloride) 250 mls @ 166.667 mls/hr IV Q48H [facility] Last Admin: 02/20/17 19:53 Dose: 166.667 mls/hr Magnesium Sulfate 2 gm/ Premix 50 mls @ 25 mls/hr IV ONETIME ONE Stop: 02/20/17 18:01 Last Admin: 02/20/17 16:11 Dose: 25 mls/hr Vancomycin HCl 500 mg/ Sodium (Chloride) 250 mls @ 166.667 mls/hr IV ONETIME ONE Stop: 02/20/17 22:29 Last Admin: 02/20/17 22:04 Dose: 166.667 mls/hr Insulin Aspart (Novolog) 0 unit SUBCUT Q6HR [facility] PRN Reason: Protocol Last Admin: 02/20/17 17:59 Dose: 1 units Insulin Human Regular (Humulin R) 10 unit SUBCUT BIDAC [facility] PRN Reason: Protocol Last Admin: 02/16/17 15:10 Dose: 10 unit Magnesium Sulfate (Pharmacy To Dose - Magnesium Replacement) 1 dose .XX ASDIRECTED [facility] Norepinephrine Bitartrate (Levophed) Confirm Administered Dose 4 mg .ROUTE .STK- MED ONE Stop: 02/17/17 04:45 Last Admin: 02/17/17 05:05 Dose: Not Given Pantoprazole Sodium (Protonix Iv) 40 mg IVPUSH ONETIME ONE Stop: 02/16/17 18:12 Last Admin: 02/16/17 19:03 Dose: 40 mg Potassium Chloride (Pharmacy To Dose - Potassium Replacement) 1 dose .XX ASDIRECTED [facility] Sodium Polystyrene Sulfonate (Kayexalate) 45 gm RECTAL NOW ONE Stop: 02/16/17 18:22 Last Admin: 02/16/17 18:52 Dose: 45 gm Sodium Polystyrene Sulfonate (Kayexalate) 15 gm PO ONETIME ONE Stop: 02/17/17 16:04 Last Admin: 02/17/17 16:38 Dose: 15 gm - Exam Quality Assessment: DVT Prophylaxis General: Alert, No Acute Distress HEENT: Pupils Equal, Pupils Reactive, EOMI, Mucous Membr. Moist/[place] Neck: Supple, Trachea Midline, No JVD Lungs: Normal Respiratory Effort, Decreased Breath Sounds Cardiovascular: Regular Rate GI/Abdominal Exam: Normal Bowel Sounds, Soft, Non-Tender, No Organomegaly, No Distention, No Abnormal Bruit, No Mass, Pelvis Stable (Female) Exam: Deferred Extremities: Normal Inspection, Normal Range of Motion, Non-Tender, No Pedal Edema, Normal Capillary Refill Peripheral Pulses: 2+: Radial (L), Radial (R), Posterior Tibial (L), Posterior Tibial (R), Dorsalis Pedis (L), Dorsalis Pedis (R) Skin: Warm, Dry, Intact Neurological: No New Focal Deficit Psy/Mental Status: Alert - Problem List & Annotations (1) Septic shock SNOMED Code(s): 72655021 Code(s): A41.9 - SEPSIS, UNSPECIFIED ORGANISM; R65.21 - SEVERE SEPSIS WITH SEPTIC SHOCK Status: Resolved Priority: High Current Visit: Yes (2) Hyperkalemia SNOMED Code(s): 68172277 Code(s): E87.5 - HYPERKALEMIA Status: Resolved Priority: High Current Visit: Yes (3) Renal failure SNOMED Code(s): 74434388 Code(s): N19 - UNSPECIFIED KIDNEY FAILURE Status: Acute Priority: High Current Visit: Yes Qualifiers: Renal failure chronicity: acute Acute renal failure type: unspecified Qualified Code(s): N17.9 - Acute kidney failure, unspecified (4) Pneumonia SNOMED Code(s): 776406490 Code(s): J18.9 - PNEUMONIA, UNSPECIFIED ORGANISM Status: Acute Priority: High Current Visit: Yes Qualifiers: Pneumonia type: due to unspecified organism Laterality: right Lung location: middle lobe of lung Qualified Code(s): J18.1 - Lobar pneumonia, unspecified organism (5) Hypotension SNOMED Code(s): 23768079 Code(s): I95.9 - HYPOTENSION, UNSPECIFIED Status: Resolved Priority: High Current Visit: Yes Qualifiers: Hypotension type: unspecified hypotension type Qualified Code(s): I95.9 - Hypotension, unspecified (6) Anemia SNOMED Code(s): 957259292 Code(s): D64.9 - ANEMIA, UNSPECIFIED Status: Acute Priority: High Current Visit: Yes Qualifiers: Anemia type: other cause Other causes of anemia: other cause, not classified Qualified Code(s): D64.89 - Other specified anemias (7) Hypothyroidism SNOMED Code(s): 35672495 Code(s): E03.9 - HYPOTHYROIDISM, UNSPECIFIED Status: Chronic Priority: Low Current Visit: No Qualifiers: Hypothyroidism type: acquired Qualified Code(s): E03.9 - Hypothyroidism, unspecified (8) HLD (hyperlipidemia) SNOMED Code(s): 73294971 Code(s): E78.5 - HYPERLIPIDEMIA, UNSPECIFIED Status: Chronic Priority: Low Current Visit: No Qualifiers: Hyperlipidemia type: pure hypercholesterolemia Qualified Code(s): E78.00 - Pure hypercholesterolemia, unspecified; E78.0 - Pure hypercholesterolemia (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 SNOMED Code(s): 435372 Code(s): F10.97 - ALCOHOL USE, UNSP WITH ALCOHOL-INDUCED PERSISTING DEMENTIA Status: Chronic Priority: Low Current Visit: No (10) Mild cognitive impairment SNOMED Code(s): 854991659 Code(s): G31.84 - MILD COGNITIVE IMPAIRMENT, SO STATED Status: Chronic Priority: Low Current Visit: No (11) Insomnia SNOMED Code(s): 440132962 Code(s): G47.00 - INSOMNIA, UNSPECIFIED Status: Chronic Priority: Low Current Visit: No Qualifiers: Insomnia type: primary Qualified Code(s): F51.01 - Primary insomnia (12) Glaucoma SNOMED Code(s): 08003609 Code(s): H40.9 - UNSPECIFIED GLAUCOMA Status: Chronic Priority: Low Current Visit: No Qualifiers: Glaucoma type: unspecified Laterality: unspecified laterality Qualified Code(s): H40.9 - Unspecified glaucoma (13) HTN (hypertension) SNOMED Code(s): 33929077 Code(s): I10 - ESSENTIAL (PRIMARY) HYPERTENSION Status: Chronic Priority : Low Current Visit: No (14) CAD (coronary artery disease) SNOMED Code(s): 79226339 Code(s): I25.10 - ATHSCL HEART DISEASE OF [place] CORONARY ARTERY W/O ANG PCTRS Status: Chronic Priority: Low Current Visit: No Qualifiers: Coronary Disease-Associated Artery/Lesion type: [place] artery [place] vs. transplanted heart: [place] heart Associated angina: angina presence unspecified Qualified Code(s): I25.10 - Atherosclerotic heart disease of [place] coronary artery without angina pectoris (15) Heart failure SNOMED Code(s): 74106904 Code(s): I50.9 - HEART FAILURE, UNSPECIFIED Status: Acute Priority: Medium Current Visit: Yes Qualifiers: Heart failure type: unspecified heart failure type Heart failure chronicity : acute on chronic Qualified Code(s): I50.9 - Heart failure, unspecified (16) GERD (gastroesophageal reflux disease) SNOMED Code(s): 248611128 Code(s): K21.9 - GASTRO-ESOPHAGEAL REFLUX DISEASE WITHOUT ESOPHAGITIS Status: Chronic Priority: Low Current Visit: No Qualifiers: Esophagitis presence: without esophagitis Qualified Code(s): K21.9 - Gastro -esophageal reflux disease without esophagitis (17) Rheumatoid arteritis SNOMED Code(s): 349555572 Code(s): I00 - RHEUMATIC FEVER WITHOUT HEART INVOLVEMENT Status: Chronic Priority: Low Current Visit: No (18) Osteoarthritis SNOMED Code(s): 639225646 Code(s): M19.90 - UNSPECIFIED OSTEOARTHRITIS, UNSPECIFIED SITE Status: Chronic Priority: Low Current Visit: No Qualifiers: Osteoarthritis location: unspecified site Osteoarthritis type: primary Qualified Code(s): M19.91 - Primary osteoarthritis, unspecified site (19) Low back pain SNOMED Code(s): 020164298 Code(s): M54.5 - LOW BACK PAIN Status: Chronic Priority: Low Current Visit: No Qualifiers: Chronicity: unspecified Back pain laterality: unspecified Sciatica presence: unspecified whether sciatica present Qualified Code(s): M54.5 - Low back pain (20) Visual hallucinations SNOMED Code(s): 93510810 Code(s): R44.1 - VISUAL HALLUCINATIONS Status: Chronic Priority: Low Current Visit: No - Problem List Review Problem List Initiated/Reviewed/Updated: Yes - Plan Plan:: I/P: Acute: Pneumonia -Increasing SOB reported by [place] and family -Risk factors: Confusion from dementia (? aspiration), Hx/o lung ca with resection, Lives in specialty SNF -CXR in ED shows right middle lobe pneumonia -RT to assess and treat/IS -f/u cxr 03/21/16 - Parenchymal density in right upper lung likely persistant pneumonia -Oxygen as needed - titrate -Continue IV Levaquin/Vancomycin for pharmacy to dose - Discontinue tomorrow Renal failure, Improving -Acute on chronic -Unsure of baseline - obtain old records -BUN 111-->69, Creatinine 3.6-->1.3, eGFR 12-->39 -Pharmacy to renally dose medications -Hold nephrotoxic drugs -Fluids -Renal ultrasound to rule out obstructive uropathy- chronic renal disease; atrophied bilateral kidneys -Monitor I&O wagner in place - discontinued Heart failure -Acute on chronic -Unsure of baseline - obtain old records -Pro-BNP 2506-->7291, repeat level in AM -Echo completed - EF 65-75 -Monitor Anemia, Improved -Acute on chronic -Unsure of baseline - obtain old records -Hgb 7.9--> 11.7, Hct 25.3, Heme + stool in ED, INR 1.15, APTT 43 -No reported hematemesis, melena, hematochezia. -S/p 2 units PRBCs transfusion -Monitor H&H -Consider surgical consult Resolved: Septic shock -2/2 pneumonia -Hypotensive -Rales in right lower lobe -Hypothermic on arrival -89.6 F rectally -Vero jasengger in place -WBC 14.93 -CRP 4.7 -UA negative -INR 1.15 -APTT 43 -Blood cultures - pending -Serum cortisol level - ordered -procalcitonin - ordered -1700 ml fluid bolus in ED -Levaquin 750 given in ED - continue -Vancomycin - pharmacy to dose -Solu-cortif Q6 -Fluids as ordered -NPO -Critical patient - strict I&O -Wagner in place Anion gap metabolic acidosis -2/2 sepsis -Anion gap 24.6 --> 22.6 -Carbon Dioxide 14-- 15 -Fluids as ordered Hyperkalemia, Improved -Potassium 6.6 in ED--> now 5.6 -1gm calcium gluconate given in ED -10 unit humulin given in ED -1700ml fluid bolus given in ED -45gm Kayexalate rectally last night; oral dose 15 mg po x1 now -Given 40mg lasix by EMS crew -Hx/o hypokalemia -Avoid lasix due to poor renal function Hypotension -2/2 above -BP 61/45 on arrival -HR 60 -Fluid bolus given in ED -Fluids as ordered -Norepinephrine drip - titrate per protocol Chronic: Hypothyroidism HLD Hypokalemia Dementia w/o behavioral disturbance Mild cognitive impairment Insomnia Glaucoma CAD GERD RA Lower back pain OA Visual hallucinations Hx/o TIA Hx/o [place] Hx/o lung neoplasm with lobectomy Plan: She is slowly improving clinically Continue current treatment Continue PT/OT/Spiritual care Swallow Eval Consult - Return to regular diet Routine AM labs GI Prophylaxis protonix DVT/PE prophylaxis: TEDS, ambulation as tolerated CM/SW for discharge planning Other orders as indicated above Prognosis is guarded at this point. Code status: DNR. Her PCP is Dr. Walden at [facility]. She recently transferred care from Dr. Grullon in [place]. LOS>96 hours with severe infection/sepsis; Likely discharge 02/25/16
[2017-02-21] MEDS: Famotidine 20 MG Tab PO SCH (21:44)
[2017-02-21] MEDS: Latanoprost 0.005% Ophth Soln 2.5 ML Bottle EYEBOTH SCH (21:47)
[2017-02-22] MEDS: Hydrocortisone Sodium Succinate 100 MG/2 ML SDV IV SCH ×3 (03:45→12:24)
[2017-02-22] MEDS: Insulin Aspart 100 Units/ML 3 ML Pen SUBCUT SCH ×3 (07:00→17:01)
[2017-02-22] MEDS: risperiDONE 0.5 MG Tab PO SCH ×3 (10:15→22:00)
[2017-02-22] MEDS: Folic Acid 1 MG Tab PO SCH (10:18)
[2017-02-22] MEDS: Levothyroxine 100 MCG Tab PO SCH (10:19)
[2017-02-22] MEDS: Metoprolol Tartrate 25 MG Tab PO SCH ×2 (10:21→22:02)
[2017-02-22] MEDS ORDERED: Vancomycin 1500 MG in Sodium Chloride 0.9% 500 ML IV SCH ×3 (18:00)
--- NOTE | 2017-02-22 20:17 | PCM.PN ---
- General Info Date of Service: 02/22/17 Admission Dx/Problem (Free Text): Septic Shock and PNA Subjective Update: In to see Johnson. She is lying in bed resting. She denies any chest pain or shortness of breath. She is quite demented and tired but we do have a simple conversation. She appears to be doing quite well. Fluids were stopped today. Pro -BNP is ordered for tomorrow. Her wagner catheter was discontinued and she is incontinent. Solu-cortef 50mg Q24 started. Vital signs have been stable. Per child protective services social worker notes family would still like pt. to return to [facility], however they are working on a back-up SNF if needed. PT is recommending SNF placement due to increased need for assistance. Her hemoglobin and platelet levels have been slowly decreasing. She was given 2 units of blood on arrival. No signs of obvious bleeding. No bruising. Iron panel looks good. Will investigate further with laboratory studies. Functional Status: Reports: Pain Controlled, Tolerating Diet, Urinating. Denies : Ambulating, New Symptoms - Review of Systems General: Reports: Weakness, Fatigue, Malaise. Denies: Fever Pulmonary: Denies: Shortness of Breath, Cough, Sputum Cardiovascular: Denies: Chest Pain Gastrointestinal: Denies: Abdominal Pain Genitourinary: Reports: Incontinence Neurological: Reports: Confusion, Pre-Existing Deficit, Difficulty Walking, Weakness Systems Review Comment:: Review of systems difficult as patient has dementia and is somewhat sleepy. No family is present in room. I am able to ask patient a few simple questions. Much of the ROS is obtained from nursing report. - Patient Data Vitals - Most Recent: Last Vital Signs Temp 97.0 F 02/22/17 19:20 Pulse 71 02/22/17 19:20 Resp 16 02/22/17 19:20 BP 113/55 L 02/22/17 19:21 Pulse Ox 95 02/22/17 19:20 Weight - Most Recent: 131 lb 8 oz I&O - Last 24 Hours: Intake & Output 02/22/17 02/22/17 02/22/17 06:59 14:59 22:59 Intake Total 744 100 600 Balance 744 100 600 Lab Results Last 24 Hours: Laboratory Results - last 24 hr 02/21/17 02/22/17 02/22/17 Range/Units 21:55 06:59 07:36 WBC 12.09 H (3.98-10.04) K/mm3 RBC 2.73 L (3.98-5.22) M/mm3 Hgb 7.8 L (11.2-15.7) gm/L Hct 24.7 L (34.1-44.9) % MCV 90.5 (79.4-94.8) fl MCH 28.6 (25.6-32.2) pg MCHC 31.6 L (32.2-35.5) g/dl RDW Std Deviation 62.0 H (36.4-46.3) fL Plt Count 43 L (182-369) K/mm3 Neut % (Auto) 85.1 H (34.0-71.1) % Lymph % (Auto) 4.3 L (19.3-51.7) % [place] % (Auto) 8.2 (4.7-12.5) % Eos % (Auto) 0.2 L (0.7-5.8) Baso % (Auto) 0.1 (0.1-1.2) % Neut # (Auto) 10.30 H (1.56-6.13) K/mm3 Lymph # (Auto) 0.52 L (1.18-3.74) K/mm3 [place] # (Auto) 0.99 H (0.24-0.36) K/mm3 Eos # (Auto) 0.02 L (0.04-0.36) K/mm3 Baso # (Auto) 0.01 (0.01-0.08) K/mm3 Manual Slide Review Abnormal smear Sodium (136-145) mEq/L Potassium (3.5-5.1) mEq/L Chloride (98-107) mEq/L Carbon Dioxide (21-32) mEq/L Anion Gap (5-15) BUN (7-18) mg/dL Creatinine (0.55-1.02) mg/dL Est Cr Clr Drug Dosing mL/min Estimated GFR (MDRD) (>60) mL/min BUN/Creatinine Ratio (14-18) Glucose (83-115) mg/dL POC Glucose 152 H 211 H (83-110) mg/dL Calcium (8.5-10.1) mg/dL Iron (50-170) ug/dL TIBC (100-400) ug/dL % Saturation (20-55) % Transferrin (202-364) mg/dL 02/22/17 02/22/17 02/22/17 Range/Units 07:36 07:36 10:09 WBC (3.98-10.04) K/mm3 RBC (3.98-5.22) M/mm3 Hgb (11.2-15.7) gm/L Hct (34.1-44.9) % MCV (79.4-94.8) fl MCH (25.6-32.2) pg MCHC (32.2-35.5) g/dl RDW Std Deviation (36.4-46.3) fL Plt Count (182-369) K/mm3 Neut % (Auto) (34.0-71.1) % Lymph % (Auto) (19.3-51.7) % [place] % (Auto) (4.7-12.5) % Eos % (Auto) (0.7-5.8) Baso % (Auto) (0.1-1.2) % Neut # (Auto) (1.56-6.13) K/mm3 Lymph # (Auto) (1.18-3.74) K/mm3 [place] # (Auto) (0.24-0.36) K/mm3 Eos # (Auto) (0.04-0.36) K/mm3 Baso # (Auto) (0.01-0.08) K/mm3 Manual Slide Review Sodium 139 (136-145) mEq/L Potassium 4.0 (3.5-5.1) mEq/L Chloride 110 H (98-107) mEq/L Carbon Dioxide 19 L (21-32) mEq/L Anion Gap 14.0 (5-15) BUN 64 H (7-18) mg/dL Creatinine 1.2 H (0.55-1.02) mg/dL Est Cr Clr Drug Dosing 24.95 mL/min Estimated GFR (MDRD) 42 (>60) mL/min BUN/Creatinine Ratio 53.3 H (14-18) Glucose 113 (83-115) mg/dL POC Glucose 137 H (83-110) mg/dL Calcium 7.6 L (8.5-10.1) mg/dL Iron 102 (50-170) ug/dL TIBC 250 (100-400) ug/dL % Saturation 41 (20-55) % Transferrin 200 L (202-364) mg/dL 02/22/17 02/22/17 02/22/17 Range/Units 11:40 11:52 16:43 WBC (3.98-10.04) K/mm3 RBC (3.98-5.22) M/mm3 Hgb 8.4 L (11.2-15.7) gm/L Hct (34.1-44.9) % MCV (79.4-94.8) fl MCH (25.6-32.2) pg MCHC (32.2-35.5) g/dl RDW Std Deviation (36.4-46.3) fL Plt Count (182-369) K/mm3 Neut % (Auto) (34.0-71.1) % Lymph % (Auto) (19.3-51.7) % [place] % (Auto) (4.7-12.5) % Eos % (Auto) (0.7-5.8) Baso % (Auto) (0.1-1.2) % Neut # (Auto) (1.56-6.13) K/mm3 Lymph # (Auto) (1.18-3.74) K/mm3 [place] # (Auto) (0.24-0.36) K/mm3 Eos # (Auto) (0.04-0.36) K/mm3 Baso # (Auto) (0.01-0.08) K/mm3 Manual Slide Review Sodium (136-145) mEq/L Potassium (3.5-5.1) mEq/L Chloride (98-107) mEq/L Carbon Dioxide (21-32) mEq/L Anion Gap (5-15) BUN (7-18) mg/dL Creatinine (0.55-1.02) mg/dL Est Cr Clr Drug Dosing mL/min Estimated GFR (MDRD) (>60) mL/min BUN/Creatinine Ratio (14-18) Glucose (83-115) mg/dL POC Glucose 117 H 107 (83-110) mg/dL Calcium (8.5-10.1) mg/dL Iron (50-170) ug/dL TIBC (100-400) ug/dL % Saturation (20-55) % Transferrin (202-364) mg/dL Med Orders - Current: Current Medications Acetaminophen (Tylenol) 650 mg PO Q4H PRN PRN Reason: Pain (Mild 1-3)/fever Hydrocodone Bitart/Acetaminophen ([place] 325-5 Mg) 1 tab PO Q4H PRN PRN Reason: Pain (moderate 4-6) Albuterol/Ipratropium (Duoneb 3.0-0.5 Mg/3 Ml) 3 ml NEB Q4H PRN PRN Reason: Shortness Of Breath/wheezing Last Admin: 02/21/17 11:10 Dose: 3 ml Bisacodyl (Dulcolax) 5 mg PO DAILY PRN PRN Reason: Constipation Dextrose/Water (Dextrose 50% In Water) 50 ml IVPUSH ASDIRECTED PRN PRN Reason: Hypoglycemia Last Admin: 02/16/17 22:22 Dose: 50 ml Docusate Sodium (Colace) 100 mg PO BID PRN PRN Reason: Constipation Famotidine (Pepcid) 20 mg PO BEDTIME [facility] Last Admin: 02/21/17 21:44 Dose: 20 mg Flunisolide (Nasalide Nasal [place]) 0 ml MANNY BID [facility] Last Admin: 02/22/17 10:25 Dose: 2 spray Folic Acid (Folic Acid) 1 mg PO DAILY [facility] Last Admin: 02/22/17 10:18 Dose: 1 mg Hydralazine HCl (Apresoline) 10 mg IVPUSH Q4H PRN PRN Reason: Hypertension Last Admin: 02/19/17 20:41 Dose: 10 mg Hydrocortisone Sodium Succinate (Solu-Cortef) 50 mg IV Q24H [facility] Last Admin: 02/22/17 12:24 Dose: Not Given Hydromorphone HCl (Dilaudid) 0.25 mg IVPUSH Q2H PRN PRN Reason: Pain (severe 7-10) Promethazine HCl 6.25 mg/ (Sodium Chloride) 50.25 mls @ 100 mls/hr IV Q6H PRN PRN Reason: Nausea/Vomiting Insulin Aspart (Novolog) 0 unit SUBCUT TIDMEALS DEMETRI PRN Reason: Protocol Last Admin: 02/22/17 17:01 Dose: Not Given Latanoprost (Xalatan 0.005% Ophth Soln) 0 ml EYEBOTH BEDTIME [facility] Last Admin: 02/21/17 21:47 Dose: 1 drop Levothyroxine Sodium (Synthroid) 100 mcg PO DAILY [facility] Last Admin: 02/22/17 10:19 Dose: 100 mcg Lorazepam (Ativan) 0.25 mg IV Q6H PRN PRN Reason: Anxiety Metoprolol Tartrate (Lopressor) 5 mg IVPUSH Q4H PRN PRN Reason: Tachycardia Last Admin: 02/18/17 23:55 Dose: 5 mg Metoprolol Tartrate (Lopressor) 25 mg PO BID [facility] Last Admin: 02/22/17 10:21 Dose: Not Given Ondansetron HCl (Zofran) 4 mg IV Q6H PRN PRN Reason: Nausea/Vomiting Leflunomide 20mg 0 each PO DAILY [facility] Last Admin: 02/22/17 10:26 Dose: Not Given Polyethylene Glycol (Miralax) 17 gm PO DAILY PRN PRN Reason: Constipation Risperidone (Risperidal) 0.5 mg PO TID [facility] Last Admin: 02/22/17 15:51 Dose: Not Given Senna/Docusate Sodium (Senna Plus) 1 tab PO BID PRN PRN Reason: Constipation Sodium Chloride (Saline Flush) 10 ml FLUSH ASDIRECTED PRN PRN Reason: Keep Vein Open Last Admin: 02/16/17 13:29 Dose: 10 ml Discontinued Medications Albuterol/Ipratropium (Duoneb 3.0-0.5 Mg/3 Ml) 3 ml NEB ONETIME ONE Stop: 02/16/17 12:59 Last Admin: 02/16/17 13:15 Dose: 3 ml Bisacodyl (Dulcolax) 10 mg RECTAL ONETIME ONE Stop: 02/19/17 18:16 Last Admin: 02/19/17 18:42 Dose: 10 mg Bumetanide (Bumex) 0.5 mg IVPUSH ONETIME ONE Stop: 02/16/17 22:29 Last Admin: 02/16/17 22:53 Dose: 0.5 mg Calcium Carbonate/Glycine (Tums) 1,000 mg PO ONETIME ONE Stop: 02/16/17 22:28 Last Admin: 02/17/17 00:20 Dose: Not Given Calcium Gluconate (Calcium Gluconate) 1 gm IVPUSH ONETIME ONE Stop: 02/16/17 14:46 Last Admin: 02/16/17 15:17 Dose: 1 gm Dextrose/Water (Dextrose 50% In Water) 50 ml IVPUSH ONETIME ONE Stop: 02/16/17 14:45 Last Admin: 02/16/17 15:12 Dose: 50 ml Famotidine (Pepcid) 20 mg IVPUSH BEDTIME DEMETRI Last Admin: 02/20/17 20:17 Dose: 20 mg Fluticasone Propionate (Flovent Hfa 110 Mcg) 0 gm INH DAILY DEMETRI Last Admin: 02/21/17 13:11 Dose: Not Given Furosemide (Lasix) 10 mg IVPUSH NOW ONE Stop: 02/18/17 08:49 Last Admin: 02/18/17 10:10 Dose: 10 mg Hydrocortisone Sodium Succinate (Solu-Cortef) 100 mg IVPUSH Q8H DEMETRI Stop: 02/20/17 07:00 Last Admin: 02/20/17 02:07 Dose: 100 mg Hydrocortisone Sodium Succinate (Solu-Cortef) 50 mg IV Q8H DEMETRI Last Admin: 02/22/17 10:21 Dose: 50 mg Hydromorphone HCl (Dilaudid) 0.25 mg IVPUSH Q2H PRN PRN Reason: Pain (severe 7-10) Lactated Ringer's (Ringers, Lactated) 1,000 mls @ 999 mls/hr IV .[facility] ONE Stop: 02/16/17 14:10 Last Admin: 02/16/17 13:29 Dose: 999 mls/hr Sodium Chloride (Normal Saline) 750 mls @ 1,000 mls/hr IV .BOLUS ONE Stop: 02/16/17 14:15 Last Admin: 02/16/17 15:30 Dose: 1,000 mls/hr Levofloxacin/Dextrose 750 mg/ (Premix) 150 mls @ 100 mls/hr IV ONETIME ONE Stop: 02/16/17 15:24 Last Admin: 02/16/17 14:11 Dose: 100 mls/hr Norepinephrine Bitartrate 4 mg (/ Dextrose/Water) 250 mls @ 7.5 mls/hr IV TITRATE DEMETRI; 2 MCG/MIN PRN Reason: Protocol Last Titration: 02/17/17 07:45 Dose: 0 mcg/min, 0 mls/hr Sodium Chloride (Normal Saline) Confirm Administered Dose 1,000 mls @ as directed .ROUTE .[facility] ONE Stop: 02/16/17 14:07 Last Admin: 02/16/17 15:30 Dose: Not Given Levofloxacin/Dextrose (Levaquin In D5w 750 Mg/150 Ml) Confirm Administered Dose 150 mls @ as directed IV .[facility] ONE Stop: 02/16/17 14:08 Last Admin: 02/16/17 15:29 Dose: Not Given Sodium Chloride (Normal Saline) Confirm Administered Dose 1,000 mls @ as directed .ROUTE .[facility] ONE Stop: 02/16/17 15:28 Last Admin: 02/16/17 15:30 Dose: Not Given Vancomycin HCl 1 gm/Vancomycin HCl 500 mg/ Sodium Chloride 500 mls @ 125 mls/ hr IV Q24H [facility] Stop: 02/16/17 21:59 Last Admin: 02/16/17 18:26 Dose: 125 mls/hr Levofloxacin/Dextrose 500 mg/ (Premix) 100 mls @ 66.667 mls/hr IV Q48H [facility] Last Admin: 02/20/17 22:06 Dose: 66.667 mls/hr Sodium Chloride (Normal Saline) 1,000 mls @ 50 mls/hr IV ASDIRECTED [facility] Dextrose/Sodium Chloride (Dextrose 5%-Normal Saline) 1,000 mls @ 15 mls/hr IV ASDIRECTED [facility] Last Admin: 02/16/17 22:58 Dose: 15 mls/hr Magnesium Sulfate (Magnesium Sulfate 2 Gm In Water 50 Ml) 50 mls @ 50 mls/hr IV ONETIME ONE Stop: 02/17/17 00:14 Last Admin: 02/17/17 00:27 Dose: 50 mls/hr Vancomycin HCl 1 gm/ Sodium (Chloride) 250 mls @ 166.667 mls/hr IV Q48H [facility] Last Admin: 02/20/17 19:53 Dose: 166.667 mls/hr Dextrose/Water (Dextrose 5% In Water) 1,000 mls @ 75 mls/hr IV ASDIRECTED [facility] Last Admin: 02/21/17 17:47 Dose: 75 mls/hr Magnesium Sulfate 2 gm/ Premix 50 mls @ 25 mls/hr IV ONETIME ONE Stop: 02/20/17 18:01 Last Admin: 02/20/17 16:11 Dose: 25 mls/hr Vancomycin HCl 500 mg/ Sodium (Chloride) 250 mls @ 166.667 mls/hr IV ONETIME ONE Stop: 02/20/17 22:29 Last Admin: 02/20/17 22:04 Dose: 166.667 mls/hr Vancomycin HCl 1 gm/Vancomycin HCl 500 mg/ Sodium Chloride 500 mls @ 333 mls/ hr IV Q48H [facility] Insulin Aspart (Novolog) 0 unit SUBCUT Q6HR DEMETRI PRN Reason: Protocol Last Admin: 02/20/17 17:59 Dose: 1 units Insulin Human Regular (Humulin R) 10 unit SUBCUT BIDAC DMEETRI PRN Reason: Protocol Last Admin: 02/16/17 15:10 Dose: 10 unit Magnesium Sulfate (Pharmacy To Dose - Magnesium Replacement) 1 dose .XX ASDIRECTED [facility] Norepinephrine Bitartrate (Levophed) Confirm Administered Dose 4 mg .ROUTE .[facility] ONE Stop: 02/17/17 04:45 Last Admin: 02/17/17 05:05 Dose: Not Given Pantoprazole Sodium (Protonix Iv) 40 mg IVPUSH ONETIME ONE Stop: 02/16/17 18:12 Last Admin: 02/16/17 19:03 Dose: 40 mg Potassium Chloride (Pharmacy To Dose - Potassium Replacement) 1 dose .XX ASDIRECTED [facility] Sodium Polystyrene Sulfonate (Kayexalate) 45 gm RECTAL NOW ONE Stop: 02/16/17 18:22 Last Admin: 02/16/17 18:52 Dose: 45 gm Sodium Polystyrene Sulfonate (Kayexalate) 15 gm PO ONETIME ONE Stop: 02/17/17 16:04 Last Admin: 02/17/17 16:38 Dose: 15 gm Vancomycin HCl (Pharmacy To Dose - Vancomycin) 1 dose .XX ASDIRECTED [facility] - Exam General: Alert, Other (sleepy but does talk with me ) HEENT: Pupils Equal, Pupils Reactive, EOMI, Mucous Membr. Moist/[place] Neck: Supple, Trachea Midline, No JVD, No Thyromegaly Lungs: Normal Respiratory Effort, Rhonchi (mild ) Cardiovascular: Regular Rate, Regular Rhythm GI/Abdominal Exam: Normal Bowel Sounds, Soft, Non-Tender, No Organomegaly, No Distention, No Abnormal Bruit, No Mass, Pelvis Stable (Female) Exam: Deferred Extremities: Normal Inspection, Normal Range of Motion, Non-Tender, Normal Capillary Refill, Pedal Edema (trace ) Peripheral Pulses: 2+: Radial (L), Radial (R), Posterior Tibial (L), Posterior Tibial (R), Dorsalis Pedis (L), Dorsalis Pedis (R) Skin: Warm, Dry, Intact Neurological: No New Focal Deficit Psy/Mental Status: Alert Physical Findings Comments:: Physical examination hampered by dementia and patient being somewhat unwilling to follow commands - Problem List & Annotations (1) Septic shock SNOMED Code(s): 33401169 Code(s): A41.9 - SEPSIS, UNSPECIFIED ORGANISM; R65.21 - SEVERE SEPSIS WITH SEPTIC SHOCK Status: Resolved Priority: High Current Visit: Yes (2) Hyperkalemia SNOMED Code(s): 34677115 Code(s): E87.5 - HYPERKALEMIA Status: Resolved Priority: High Current Visit: Yes (3) Renal failure SNOMED Code(s): 83418725 Code(s): N19 - UNSPECIFIED KIDNEY FAILURE Status: Acute Priority: High Current Visit: Yes Qualifiers: Renal failure chronicity: acute Acute renal failure type: unspecified Qualified Code(s): N17.9 - Acute kidney failure, unspecified (4) Pneumonia SNOMED Code(s): 637449290 Code(s): J18.9 - PNEUMONIA, UNSPECIFIED ORGANISM Status: Acute Priority: High Current Visit: Yes Qualifiers: Pneumonia type: due to unspecified organism Laterality: right Lung location: middle lobe of lung Qualified Code(s): J18.1 - Lobar pneumonia, unspecified organism (5) Hypotension SNOMED Code(s): 94860259 Code(s): I95.9 - HYPOTENSION, UNSPECIFIED Status: Resolved Priority: High Current Visit: Yes Qualifiers: Hypotension type: unspecified hypotension type Qualified Code(s): I95.9 - Hypotension, unspecified (6) Anemia SNOMED Code(s): 936647350 Code(s): D64.9 - ANEMIA, UNSPECIFIED Status: Acute Priority: High Current Visit: Yes Qualifiers: Anemia type: other cause Other causes of anemia: other cause, not classified Qualified Code(s): D64.89 - Other specified anemias (7) Hypothyroidism SNOMED Code(s): 43358325 Code(s): E03.9 - HYPOTHYROIDISM, UNSPECIFIED Status: Chronic Priority: Low Current Visit: No Qualifiers: Hypothyroidism type: acquired Qualified Code(s): E03.9 - Hypothyroidism, unspecified (8) HLD (hyperlipidemia) SNOMED Code(s): 63815488 Code(s): E78.5 - HYPERLIPIDEMIA, UNSPECIFIED Status: Chronic Priority: Low Current Visit: No Qualifiers: Hyperlipidemia type: pure hypercholesterolemia Qualified Code(s): E78.00 - Pure hypercholesterolemia, unspecified; E78.0 - Pure hypercholesterolemia (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 SNOMED Code(s): 025391 Code(s): F10.97 - ALCOHOL USE, UNSP WITH ALCOHOL-INDUCED PERSISTING DEMENTIA Status: Chronic Priority: Low Current Visit: No (10) Mild cognitive impairment SNOMED Code(s): 407419430 Code(s): G31.84 - MILD COGNITIVE IMPAIRMENT, SO STATED Status: Chronic Priority: Low Current Visit: No (11) Insomnia SNOMED Code(s): 501222422 Code(s): G47.00 - INSOMNIA, UNSPECIFIED Status: Chronic Priority: Low Current Visit: No Qualifiers: Insomnia type: primary Qualified Code(s): F51.01 - Primary insomnia (12) Glaucoma SNOMED Code(s): 90207013 Code(s): H40.9 - UNSPECIFIED GLAUCOMA Status: Chronic Priority: Low Current Visit: No Qualifiers: Glaucoma type: unspecified Laterality: unspecified laterality Qualified Code(s): H40.9 - Unspecified glaucoma (13) HTN (hypertension) SNOMED Code(s): 17037882 Code(s): I10 - ESSENTIAL (PRIMARY) HYPERTENSION Status: Chronic Priority : Low Current Visit: No (14) CAD (coronary artery disease) SNOMED Code(s): 96212252 Code(s): I25.10 - ATHSCL HEART DISEASE OF [place] CORONARY ARTERY W/O ANG PCTRS Status: Chronic Priority: Low Current Visit: No Qualifiers: Coronary Disease-Associated Artery/Lesion type: [place] artery [place] vs. transplanted heart: [place] heart Associated angina: angina presence unspecified Qualified Code(s): I25.10 - Atherosclerotic heart disease of [place] coronary artery without angina pectoris (15) Heart failure SNOMED Code(s): 49643515 Code(s): I50.9 - HEART FAILURE, UNSPECIFIED Status: Acute Priority: Medium Current Visit: Yes Qualifiers: Heart failure type: unspecified heart failure type Heart failure chronicity : acute on chronic Qualified Code(s): I50.9 - Heart failure, unspecified (16) GERD (gastroesophageal reflux disease) SNOMED Code(s): 902525966 Code(s): K21.9 - GASTRO-ESOPHAGEAL REFLUX DISEASE WITHOUT ESOPHAGITIS Status: Chronic Priority: Low Current Visit: No Qualifiers: Esophagitis presence: without esophagitis Qualified Code(s): K21.9 - Gastro -esophageal reflux disease without esophagitis (17) Rheumatoid arteritis SNOMED Code(s): 608035375 Code(s): I00 - RHEUMATIC FEVER WITHOUT HEART INVOLVEMENT Status: Chronic Priority: Low Current Visit: No (18) Osteoarthritis SNOMED Code(s): 638121425 Code(s): M19.90 - UNSPECIFIED OSTEOARTHRITIS, UNSPECIFIED SITE Status: Chronic Priority: Low Current Visit: No Qualifiers: Osteoarthritis location: unspecified site Osteoarthritis type: primary Qualified Code(s): M19.91 - Primary osteoarthritis, unspecified site (19) Low back pain SNOMED Code(s): 214848243 Code(s): M54.5 - LOW BACK PAIN Status: Chronic Priority: Low Current Visit: No Qualifiers: Chronicity: unspecified Back pain laterality: unspecified Sciatica presence: unspecified whether sciatica present Qualified Code(s): M54.5 - Low back pain (20) Visual hallucinations SNOMED Code(s): 54699930 Code(s): R44.1 - VISUAL HALLUCINATIONS Status: Chronic Priority: Low Current Visit: No - Problem List Review Problem List Initiated/Reviewed/Updated: Yes - My Orders Last 24 Hours: My Active Orders 02/21/17 23:27 Patient Status [ADT] Routine 02/23/17 05:11 BASIC METABOLIC PANEL,BMP [CHEM] AM CBC WITH AUTO DIFF [HEME] AM PRO B-TYPE NATRIUR PEPT,BNPPRO [CHEM] Routine 02/24/17 05:11 BASIC METABOLIC PANEL,BMP [CHEM] AM CBC WITH AUTO DIFF [HEME] AM 02/25/17 05:11 BASIC METABOLIC PANEL,BMP [CHEM] AM CBC WITH AUTO DIFF [HEME] AM - Plan Plan:: I/P: Acute: Pneumonia -Increasing SOB reported by [place] and family -Risk factors: Confusion from dementia (? aspiration), Hx/o lung ca with resection, Lives in specialty SNF -CXR in ED shows right middle lobe pneumonia -RT to assess and treat/IS -f/u cxr 03/21/16 - Parenchymal density in right upper lung likely persistant pneumonia -Oxygen as needed - titrate -Continue IV Levaquin/Vancomycin for pharmacy to dose - Discontinued -F/u CXR in AM Renal failure, Improving -Acute on chronic -Unsure of baseline - obtain old records -BUN 111-->69-->64, Creatinine 3.6-->1.3-->1.2, eGFR 12-->39-->42 -Pharmacy to renally dose medications -Hold nephrotoxic drugs -Fluids - stopped for now -Renal ultrasound to rule out obstructive uropathy- chronic renal disease; atrophied bilateral kidneys -Monitor I&O; wagner in place - discontinued Heart failure -Acute on chronic -Unsure of baseline - obtain old records -Pro-BNP 2506-->7291, repeat level in AM -Echo completed - EF 65-75 -Rales noted on lung sounds - hold fluids -20mg IVP lasix in AM -Monitor Anemia, -Acute on chronic -Unsure of baseline - obtain old records -Hgb 7.9--> 11.7-->7.8-->8.4, Hct 25.3-->36.7, Heme + stool in ED, INR 1.15, APTT 43 -No reported hematemesis, melena, hematochezia. -S/p 2 units PRBCs transfusion -Monitor H&H -Type and cross - may need transfusion in AM -Occult stool - ordered -Consider surgical consult Thrombocytopenia -Plt count 119--> 120--> 119--> 87--> 52--> 43 -Total bilirubin, CBC with manual diff, haptoglobin, PT/INR, APTT, LDH ordered -Continue to investigate cause Resolved: Septic shock -2/2 pneumonia -Hypotensive -Rales in right lower lobe -Hypothermic on arrival -89.6 F rectally -Vero hugger in place -WBC 14.93 -CRP 4.7 -UA negative -INR 1.15 -APTT 43 -Blood cultures - pending -Serum cortisol level - ordered -procalcitonin - ordered -1700 ml fluid bolus in ED -Levaquin 750 given in ED - continue -Vancomycin - pharmacy to dose -Solu-cortif Q6 -Fluids as ordered -NPO -Critical patient - strict I&O -Wagner in place Anion gap metabolic acidosis -2/2 sepsis -Anion gap 24.6 --> 22.6 -Carbon Dioxide 14-- 15 -Fluids as ordered Hyperkalemia, Improved -Potassium 6.6 in ED--> now 5.6 -1gm calcium gluconate given in ED -10 unit humulin given in ED -1700ml fluid bolus given in ED -45gm Kayexalate rectally last night; oral dose 15 mg po x1 now -Given 40mg lasix by EMS crew -Hx/o hypokalemia -Avoid lasix due to poor renal function Hypotension -2/2 above -BP 61/45 on arrival -HR 60 -Fluid bolus given in ED -Fluids as ordered -Norepinephrine drip - titrate per protocol Chronic: Hypothyroidism HLD Hypokalemia Dementia w/o behavioral disturbance Mild cognitive impairment Insomnia Glaucoma CAD GERD RA Lower back pain OA Visual hallucinations Hx/o TIA Hx/o [place] Hx/o lung neoplasm with lobectomy Plan: She is slowly improving clinically Continue current treatment Continue PT/OT/Spiritual care Swallow Eval Consult - Return to regular diet Routine AM labs GI Prophylaxis protonix DVT/PE prophylaxis: TEDS and ambulation as tolerated CM/SW for discharge planning Other orders as indicated above Prognosis is guarded at this point. Code status: DNR. Her PCP is Dr. Walden at [facility]. She recently transferred care from Dr. Grullon in [place]. LOS>96 hours with severe infection/sepsis; Likely discharge 02/25/16
[2017-02-22] MEDS: Famotidine 20 MG Tab PO SCH (22:02)
[2017-02-22] MEDS: Latanoprost 0.005% Ophth Soln 2.5 ML Bottle EYEBOTH SCH (22:03)
[2017-02-23] MEDS ORDERED: Furosemide 20 MG/2 ML VIAL IVPUSH ONE ×2 (07:00→21:00)
[2017-02-23] MEDS: Insulin Aspart 100 Units/ML 3 ML Pen SUBCUT SCH ×3 (08:07→17:58)
[2017-02-23] MEDS: risperiDONE 0.5 MG Tab PO SCH ×3 (09:55→23:37)
[2017-02-23] MEDS: Folic Acid 1 MG Tab PO SCH (09:56)
[2017-02-23] MEDS: Levothyroxine 100 MCG Tab PO SCH (09:56)
[2017-02-23] MEDS: Metoprolol Tartrate 25 MG Tab PO SCH ×2 (09:56→23:36)
[2017-02-23] MEDS: Hydrocortisone Sodium Succinate 100 MG/2 ML SDV IV SCH (10:01)
--- NOTE | 2017-02-23 10:57 | CR ---
Chest: Two views of the chest were obtained. Comparison: Prior chest x-ray of 02/18/17 and 02/16/17. Continuing right upper lobe consolidation is seen. Findings are more dense than on prior study but overall size is slightly improved. Left lung is clear. Callus is seen around several left-sided rib fractures. Heart size is normal. Atherosclerotic calcification and mild tortuosity is seen within the aorta. Impression: 1. Continuing consolidation within the right upper lung as described above. Diagnostic code #3
[2017-02-23] MEDS ORDERED: Potassium Chloride 20 MEQ Tab.ER PO ONE (13:54)
[2017-02-23] MEDS ORDERED: Sodium Chloride 0.9% 250 ML IV SCH (15:30)
[2017-02-23] MEDS ORDERED: Furosemide 40 MG/4 ML VIAL IVPUSH ONE (17:00)
--- NOTE | 2017-02-23 18:27 | PCM.PN ---
- General Info Date of Service: 02/23/17 Functional Status: Reports: Tolerating Diet - Review of Systems General: Reports: Weakness HEENT: Reports: No Symptoms Pulmonary: Reports: No Symptoms Cardiovascular: Reports: No Symptoms Gastrointestinal: Reports: No Symptoms Genitourinary: Reports: No Symptoms Musculoskeletal: Reports: No Symptoms Skin: Reports: No Symptoms Neurological: Reports: No Symptoms Psychiatric: Reports: No Symptoms - Patient Data Vitals - Most Recent: Last Vital Signs Temp 35.9 C 02/23/17 15:56 Pulse 61 02/23/17 15:56 Resp 12 02/23/17 15:56 BP 107/66 02/23/17 15:56 Pulse Ox 96 02/23/17 15:56 Weight - Most Recent: 59.285 kg I&O - Last 24 Hours: Intake & Output 02/23/17 02/23/17 02/23/17 06:59 14:59 22:59 Intake Total 100 200 751 Balance 100 200 751 Lab Results Last 24 Hours: Laboratory Results - last 24 hr 02/22/17 02/23/17 02/23/17 Range/Units 20:38 06:44 08:05 WBC (3.98-10.04) K/mm3 RBC (3.98-5.22) M/mm3 Hgb (11.2-15.7) gm/L Hct (34.1-44.9) % MCV (79.4-94.8) fl MCH (25.6-32.2) pg MCHC (32.2-35.5) g/dl RDW Std Deviation (36.4-46.3) fL Plt Count (182-369) K/mm3 Neutrophils % (Manual) (40-60) % Band Neutrophils % (0-10) % Lymphocytes % (Manual) (20-40) % Atypical Lymphs % % Monocytes % (Manual) (2-10) % Eosinophils % (Manual) (0.7-5.8) % Basophils % (Manual) (0.1-1.2) Differential Comment Platelet Estimate Polychromasia Poikilocytosis Anisocytosis RBC Morph Comment PT (8.0-13.0) SECONDS INR APTT (22-36) SECONDS Sodium 141 (136-145) mEq/L Potassium 3.7 (3.5-5.1) mEq/L Chloride 112 H (98-107) mEq/L Carbon Dioxide 21 (21-32) mEq/L Anion Gap 11.7 (5-15) BUN 72 H (7-18) mg/dL Creatinine 1.3 H (0.55-1.02) mg/dL Est Cr Clr Drug Dosing 23.03 mL/min Estimated GFR (MDRD) 39 (>60) mL/min BUN/Creatinine Ratio 55.4 H (14-18) Glucose 88 (83-115) mg/dL POC Glucose 105 78 L (83-110) mg/dL Calcium 7.5 L (8.5-10.1) mg/dL Total Bilirubin 1.1 H (0.2-1.0) mg/dL Lactate Dehydrogenase 687 H (81-234) U/L NT-Pro-B Natriuret Pep 1235 H (0-450) pg/mL Blood Type Gel Antibody Screen Crossmatch 02/23/17 02/23/17 02/23/17 Range/Units 08:05 08:05 08:05 WBC 14.91 H (3.98-10.04) K/mm3 RBC 2.66 L (3.98-5.22) M/mm3 Hgb 7.8 L (11.2-15.7) gm/L Hct 24.4 L (34.1-44.9) % MCV 91.7 (79.4-94.8) fl MCH 29.3 (25.6-32.2) pg MCHC 32.0 L (32.2-35.5) g/dl RDW Std Deviation 61.5 H (36.4-46.3) fL Plt Count 40 L (182-369) K/mm3 Neutrophils % (Manual) 77 H (40-60) % Band Neutrophils % 1 (0-10) % Lymphocytes % (Manual) 19 L (20-40) % Atypical Lymphs % 0 % Monocytes % (Manual) 3 (2-10) % Eosinophils % (Manual) 0 L (0.7-5.8) % Basophils % (Manual) 0 L (0.1-1.2) Differential Comment See note Platelet Estimate See note Polychromasia 2+ moderate Poikilocytosis 1+ slight Anisocytosis 2+ moderate RBC Morph Comment Not Reportable PT 12.6 (8.0-13.0) SECONDS INR 1.15 APTT 31 (22-36) SECONDS Sodium (136-145) mEq/L Potassium (3.5-5.1) mEq/L Chloride (98-107) mEq/L Carbon Dioxide (21-32) mEq/L Anion Gap (5-15) BUN (7-18) mg/dL Creatinine (0.55-1.02) mg/dL Est Cr Clr Drug Dosing mL/min Estimated GFR (MDRD) (>60) mL/min BUN/Creatinine Ratio (14-18) Glucose (83-115) mg/dL POC Glucose (83-110) mg/dL Calcium (8.5-10.1) mg/dL Total Bilirubin (0.2-1.0) mg/dL Lactate Dehydrogenase (81-234) U/L NT-Pro-B Natriuret Pep (0-450) pg/mL Blood Type O NEGATIVE Gel Antibody Screen Negative Crossmatch See Detail 02/23/17 02/23/17 Range/Units 11:20 17:20 WBC (3.98-10.04) K/mm3 RBC (3.98-5.22) M/mm3 Hgb (11.2-15.7) gm/L Hct (34.1-44.9) % MCV (79.4-94.8) fl MCH (25.6-32.2) pg MCHC (32.2-35.5) g/dl RDW Std Deviation (36.4-46.3) fL Plt Count (182-369) K/mm3 Neutrophils % (Manual) (40-60) % Band Neutrophils % (0-10) % Lymphocytes % (Manual) (20-40) % Atypical Lymphs % % Monocytes % (Manual) (2-10) % Eosinophils % (Manual) (0.7-5.8) % Basophils % (Manual) (0.1-1.2) Differential Comment Platelet Estimate Polychromasia Poikilocytosis Anisocytosis RBC Morph Comment PT (8.0-13.0) SECONDS INR APTT (22-36) SECONDS Sodium (136-145) mEq/L Potassium (3.5-5.1) mEq/L Chloride (98-107) mEq/L Carbon Dioxide (21-32) mEq/L Anion Gap (5-15) BUN (7-18) mg/dL Creatinine (0.55-1.02) mg/dL Est Cr Clr Drug Dosing mL/min Estimated GFR (MDRD) (>60) mL/min BUN/Creatinine Ratio (14-18) Glucose (83-115) mg/dL POC Glucose 141 H 115 H (83-110) mg/dL Calcium (8.5-10.1) mg/dL Total Bilirubin (0.2-1.0) mg/dL Lactate Dehydrogenase (81-234) U/L NT-Pro-B Natriuret Pep (0-450) pg/mL Blood Type Gel Antibody Screen Crossmatch [place] Results Last 24 Hours: Microbiology 02/23/17 13:19 Stool Occult Blood ([facility]) - Final Stool / Feces Med Orders - Current: Current Medications Acetaminophen (Tylenol) 650 mg PO Q4H PRN PRN Reason: Pain (Mild 1-3)/fever Hydrocodone Bitart/Acetaminophen ([place] 325-5 Mg) 1 tab PO Q4H PRN PRN Reason: Pain (moderate 4-6) Albuterol/Ipratropium (Duoneb 3.0-0.5 Mg/3 Ml) 3 ml NEB Q4H PRN PRN Reason: Shortness Of Breath/wheezing Last Admin: 02/21/17 11:10 Dose: 3 ml Bisacodyl (Dulcolax) 5 mg PO DAILY PRN PRN Reason: Constipation Dextrose/Water (Dextrose 50% In Water) 50 ml IVPUSH ASDIRECTED PRN PRN Reason: Hypoglycemia Last Admin: 02/16/17 22:22 Dose: 50 ml Docusate Sodium (Colace) 100 mg PO BID PRN PRN Reason: Constipation Last Admin: 02/23/17 06:48 Dose: 100 mg Famotidine (Pepcid) 20 mg PO BEDTIME [facility]ET[facility] Last Admin: 02/22/17 22:02 Dose: 20 mg Flunisolide (Nasalide Nasal [place]) 0 ml MANNY BID [facility] Last Admin: 02/23/17 10:04 Dose: 2 spray Folic Acid (Folic Acid) 1 mg PO DAILY [facility] Last Admin: 02/23/17 09:56 Dose: 1 mg Furosemide (Lasix) 20 mg IVPUSH NOW ONE Stop: 02/23/17 21:01 Hydralazine HCl (Apresoline) 10 mg IVPUSH Q4H PRN PRN Reason: Hypertension Last Admin: 02/19/17 20:41 Dose: 10 mg Hydrocortisone Sodium Succinate (Solu-Cortef) 50 mg IV Q24H [facility] Last Admin: 02/23/17 10:01 Dose: 50 mg Hydromorphone HCl (Dilaudid) 0.25 mg IVPUSH Q2H PRN PRN Reason: Pain (severe 7-10) Promethazine HCl 6.25 mg/ (Sodium Chloride) 50.25 mls @ 100 mls/hr IV Q6H PRN PRN Reason: Nausea/Vomiting Sodium Chloride (Normal Saline) 250 mls @ 25 mls/hr IV ASDIRECTED [facility] Last Admin: 02/23/17 15:42 Dose: 25 mls/hr Insulin Aspart (Novolog) 0 unit SUBCUT TIDMEALS [facility] PRN Reason: Protocol Last Admin: 02/23/17 17:58 Dose: Not Given Latanoprost (Xalatan 0.005% Ophth Soln) 0 ml EYEBOTH BEDTIME [facility] Last Admin: 02/22/17 22:03 Dose: 1 drop Levothyroxine Sodium (Synthroid) 100 mcg PO DAILY [facility] Last Admin: 02/23/17 09:56 Dose: 100 mcg Lorazepam (Ativan) 0.25 mg IV Q6H PRN PRN Reason: Anxiety Metoprolol Tartrate (Lopressor) 5 mg IVPUSH Q4H PRN PRN Reason: Tachycardia Last Admin: 02/18/17 23:55 Dose: 5 mg Metoprolol Tartrate (Lopressor) 25 mg PO BID [facility] Last Admin: 02/23/17 09:56 Dose: 25 mg Ondansetron HCl (Zofran) 4 mg IV Q6H PRN PRN Reason: Nausea/Vomiting Leflunomide 20mg 0 each PO DAILY [facility] Last Admin: 02/23/17 10:09 Dose: Not Given Polyethylene Glycol (Miralax) 17 gm PO DAILY PRN PRN Reason: Constipation Last Admin: 02/23/17 09:57 Dose: 17 gm Risperidone (Risperidal) 0.5 mg PO TID [facility] Last Admin: 02/23/17 14:26 Dose: 0.5 mg Senna/Docusate Sodium (Senna Plus) 1 tab PO BID PRN PRN Reason: Constipation Sodium Chloride (Saline Flush) 10 ml FLUSH ASDIRECTED PRN PRN Reason: Keep Vein Open Last Admin: 02/16/17 13:29 Dose: 10 ml Discontinued Medications Albuterol/Ipratropium (Duoneb 3.0-0.5 Mg/3 Ml) 3 ml NEB ONETIME ONE Stop: 02/16/17 12:59 Last Admin: 02/16/17 13:15 Dose: 3 ml Bisacodyl (Dulcolax) 10 mg RECTAL ONETIME ONE Stop: 02/19/17 18:16 Last Admin: 02/19/17 18:42 Dose: 10 mg Bumetanide (Bumex) 0.5 mg IVPUSH ONETIME ONE Stop: 02/16/17 22:29 Last Admin: 02/16/17 22:53 Dose: 0.5 mg Calcium Carbonate/Glycine (Tums) 1,000 mg PO ONETIME ONE Stop: 02/16/17 22:28 Last Admin: 02/17/17 00:20 Dose: Not Given Calcium Gluconate (Calcium Gluconate) 1 gm IVPUSH ONETIME ONE Stop: 02/16/17 14:46 Last Admin: 02/16/17 15:17 Dose: 1 gm Dextrose/Water (Dextrose 50% In Water) 50 ml IVPUSH ONETIME ONE Stop: 02/16/17 14:45 Last Admin: 02/16/17 15:12 Dose: 50 ml Famotidine (Pepcid) 20 mg IVPUSH BEDTIME [facility] Last Admin: 02/20/17 20:17 Dose: 20 mg Fluticasone Propionate (Flovent Hfa 110 Mcg) 0 gm INH DAILY [facility] Last Admin: 02/21/17 13:11 Dose: Not Given Furosemide (Lasix) 10 mg IVPUSH NOW ONE Stop: 02/18/17 08:49 Last Admin: 02/18/17 10:10 Dose: 10 mg Furosemide (Lasix) 20 mg IVPUSH NOW ONE Stop: 02/23/17 07:01 Last Admin: 02/23/17 06:49 Dose: 20 mg Furosemide (Lasix) 20 mg IVPUSH NOW ONE Stop: 02/23/17 17:01 Hydrocortisone Sodium Succinate (Solu-Cortef) 100 mg IVPUSH Q8H [facility] Stop: 02/20/17 07:00 Last Admin: 02/20/17 02:07 Dose: 100 mg Hydrocortisone Sodium Succinate (Solu-Cortef) 50 mg IV Q8H [facility] Last Admin: 02/22/17 10:21 Dose: 50 mg Hydromorphone HCl (Dilaudid) 0.25 mg IVPUSH Q2H PRN PRN Reason: Pain (severe 7-10) Lactated Ringer's (Ringers, Lactated) 1,000 mls @ 999 mls/hr IV .BOLUS ONE Stop: 02/16/17 14:10 Last Admin: 02/16/17 13:29 Dose: 999 mls/hr Sodium Chloride (Normal Saline) 750 mls @ 1,000 mls/hr IV .BOLUS ONE Stop: 02/16/17 14:15 Last Admin: 02/16/17 15:30 Dose: 1,000 mls/hr Levofloxacin/Dextrose 750 mg/ (Premix) 150 mls @ 100 mls/hr IV ONETIME ONE Stop: 02/16/17 15:24 Last Admin: 02/16/17 14:11 Dose: 100 mls/hr Norepinephrine Bitartrate 4 mg (/ Dextrose/Water) 250 mls @ 7.5 mls/hr IV TITRATE DEMETRI; 2 MCG/MIN PRN Reason: Protocol Last Titration: 02/17/17 07:45 Dose: 0 mcg/min, 0 mls/hr Sodium Chloride (Normal Saline) Confirm Administered Dose 1,000 mls @ as directed .ROUTE .STK-MED ONE Stop: 02/16/17 14:07 Last Admin: 02/16/17 15:30 Dose: Not Given Levofloxacin/Dextrose (Levaquin In D5w 750 Mg/150 Ml) Confirm Administered Dose 150 mls @ as directed IV .STK-MED ONE Stop: 02/16/17 14:08 Last Admin: 02/16/17 15:29 Dose: Not Given Sodium Chloride (Normal Saline) Confirm Administered Dose 1,000 mls @ as directed .ROUTE .STK-MED ONE Stop: 02/16/17 15:28 Last Admin: 02/16/17 15:30 Dose: Not Given Vancomycin HCl 1 gm/Vancomycin HCl 500 mg/ Sodium Chloride 500 mls @ 125 mls/ hr IV Q24H [facility] Stop: 02/16/17 21:59 Last Admin: 02/16/17 18:26 Dose: 125 mls/hr Levofloxacin/Dextrose 500 mg/ (Premix) 100 mls @ 66.667 mls/hr IV Q48H [facility] Last Admin: 02/20/17 22:06 Dose: 66.667 mls/hr Sodium Chloride (Normal Saline) 1,000 mls @ 50 mls/hr IV ASDIRECTED [facility] Dextrose/Sodium Chloride (Dextrose 5%-Normal Saline) 1,000 mls @ 15 mls/hr IV ASDIRECTED [facility] Last Admin: 02/16/17 22:58 Dose: 15 mls/hr Magnesium Sulfate (Magnesium Sulfate 2 Gm In Water 50 Ml) 50 mls @ 50 mls/hr IV ONETIME ONE Stop: 02/17/17 00:14 Last Admin: 02/17/17 00:27 Dose: 50 mls/hr Vancomycin HCl 1 gm/ Sodium (Chloride) 250 mls @ 166.667 mls/hr IV Q48H [facility] Last Admin: 02/20/17 19:53 Dose: 166.667 mls/hr Dextrose/Water (Dextrose 5% In Water) 1,000 mls @ 75 mls/hr IV ASDIRECTED [facility] Last Admin: 02/21/17 17:47 Dose: 75 mls/hr Magnesium Sulfate 2 gm/ Premix 50 mls @ 25 mls/hr IV ONETIME ONE Stop: 02/20/17 18:01 Last Admin: 02/20/17 16:11 Dose: 25 mls/hr Vancomycin HCl 500 mg/ Sodium (Chloride) 250 mls @ 166.667 mls/hr IV ONETIME ONE Stop: 02/20/17 22:29 Last Admin: 02/20/17 22:04 Dose: 166.667 mls/hr Vancomycin HCl 1 gm/Vancomycin HCl 500 mg/ Sodium Chloride 500 mls @ 333 mls/ hr IV Q48H [facility] Insulin Aspart (Novolog) 0 unit SUBCUT Q6HR [facility] PRN Reason: Protocol Last Admin: 02/20/17 17:59 Dose: 1 units Insulin Human Regular (Humulin R) 10 unit SUBCUT BIDAC [facility] PRN Reason: Protocol Last Admin: 02/16/17 15:10 Dose: 10 unit Magnesium Sulfate (Pharmacy To Dose - Magnesium Replacement) 1 dose .XX ASDIRECTED [facility] Norepinephrine Bitartrate (Levophed) Confirm Administered Dose 4 mg .ROUTE .STK- MED ONE Stop: 02/17/17 04:45 Last Admin: 02/17/17 05:05 Dose: Not Given Pantoprazole Sodium (Protonix Iv) 40 mg IVPUSH ONETIME ONE Stop: 02/16/17 18:12 Last Admin: 02/16/17 19:03 Dose: 40 mg Potassium Chloride (Pharmacy To Dose - Potassium Replacement) 1 dose .XX ASDIRECTED [facility] Potassium Chloride (Klor-Con M20) 40 meq PO ONETIME ONE Stop: 02/23/17 13:55 Last Admin: 02/23/17 14:25 Dose: 40 meq Sodium Polystyrene Sulfonate (Kayexalate) 45 gm RECTAL NOW ONE Stop: 02/16/17 18:22 Last Admin: 02/16/17 18:52 Dose: 45 gm Sodium Polystyrene Sulfonate (Kayexalate) 15 gm PO ONETIME ONE Stop: 02/17/17 16:04 Last Admin: 02/17/17 16:38 Dose: 15 gm Vancomycin HCl (Pharmacy To Dose - Vancomycin) 1 dose .XX ASDIRECTED [facility] - Exam Quality Assessment: DVT Prophylaxis General: Alert, Oriented, No Acute Distress HEENT: Pupils Equal, Pupils Reactive, EOMI Neck: Supple, Trachea Midline, No JVD Lungs: Normal Respiratory Effort Cardiovascular: Regular Rate GI/Abdominal Exam: Normal Bowel Sounds, Soft, Non-Tender, No Organomegaly, No Distention (Female) Exam: Deferred Back Exam: Normal Inspection Extremities: Normal Inspection, Normal Capillary Refill Skin: Warm Neurological: No New Focal Deficit Psy/Mental Status: Alert - Problem List & Annotations (1) Anemia SNOMED Code(s): 288941270 Code(s): D64.9 - ANEMIA, UNSPECIFIED Status: Acute Priority: High Current Visit: Yes Qualifiers: Anemia type: other cause Other causes of anemia: other cause, not classified Qualified Code(s): D64.89 - Other specified anemias (2) Heart failure SNOMED Code(s): 16496572 Code(s): I50.9 - HEART FAILURE, UNSPECIFIED Status: Acute Priority: Medium Current Visit: Yes Qualifiers: Heart failure type: unspecified heart failure type Heart failure chronicity : acute on chronic Qualified Code(s): I50.9 - Heart failure, unspecified (3) Pneumonia SNOMED Code(s): 006279878 Code(s): J18.9 - PNEUMONIA, UNSPECIFIED ORGANISM Status: Acute Priority: High Current Visit: Yes Qualifiers: Pneumonia type: due to unspecified organism Laterality: right Lung location: middle lobe of lung Qualified Code(s): J18.1 - Lobar pneumonia, unspecified organism (4) Renal failure SNOMED Code(s): 03600355 Code(s): N19 - UNSPECIFIED KIDNEY FAILURE Status: Acute Priority: High Current Visit: Yes Qualifiers: Renal failure chronicity: acute Acute renal failure type: unspecified Qualified Code(s): N17.9 - Acute kidney failure, unspecified (5) Hyperkalemia SNOMED Code(s): 96816632 Code(s): E87.5 - HYPERKALEMIA Status: Resolved Priority: High Current Visit: Yes (6) Hypotension SNOMED Code(s): 36327186 Code(s): I95.9 - HYPOTENSION, UNSPECIFIED Status: Resolved Priority: High Current Visit: Yes Qualifiers: Hypotension type: unspecified hypotension type Qualified Code(s): I95.9 - Hypotension, unspecified (7) Septic shock SNOMED Code(s): 51382274 Code(s): A41.9 - SEPSIS, UNSPECIFIED ORGANISM; R65.21 - SEVERE SEPSIS WITH SEPTIC SHOCK Status: Resolved Priority: High Current Visit: Yes (8) CAD (coronary artery disease) SNOMED Code(s): 91721683 Code(s): I25.10 - ATHSCL HEART DISEASE OF [place] CORONARY ARTERY W/O ANG PCTRS Status: Chronic Priority: Low Current Visit: No Qualifiers: Coronary Disease-Associated Artery/Lesion type: [place] artery [place] vs. transplanted heart: [place] heart Associated angina: angina presence unspecified Qualified Code(s): I25.10 - Atherosclerotic heart disease of [place] coronary artery without angina pectoris (9) GERD (gastroesophageal reflux disease) SNOMED Code(s): 113563586 Code(s): K21.9 - GASTRO-ESOPHAGEAL REFLUX DISEASE WITHOUT ESOPHAGITIS Status: Chronic Priority: Low Current Visit: No Qualifiers: Esophagitis presence: without esophagitis Qualified Code(s): K21.9 - Gastro -esophageal reflux disease without esophagitis (10) Glaucoma SNOMED Code(s): 15701292 Code(s): H40.9 - UNSPECIFIED GLAUCOMA Status: Chronic Priority: Low Current Visit: No Qualifiers: Glaucoma type: unspecified Laterality: unspecified laterality Qualified Code(s): H40.9 - Unspecified glaucoma (11) HLD (hyperlipidemia) SNOMED Code(s): 12129961 Code(s): E78.5 - HYPERLIPIDEMIA, UNSPECIFIED Status: Chronic Priority: Low Current Visit: No Qualifiers: Hyperlipidemia type: pure hypercholesterolemia Qualified Code(s): E78.00 - Pure hypercholesterolemia, unspecified; E78.0 - Pure hypercholesterolemia (12) Hypothyroidism SNOMED Code(s): 87223222 Code(s): E03.9 - HYPOTHYROIDISM, UNSPECIFIED Status: Chronic Priority: Low Current Visit: No Qualifiers: Hypothyroidism type: acquired Qualified Code(s): E03.9 - Hypothyroidism, unspecified - Problem List Review Problem List Initiated/Reviewed/Updated: Yes - My Orders Last 24 Hours: My Active Orders 02/23/17 08:05 RED BLOOD CELLS LP [BBK] Routine 02/23/17 13:39 Transfuse RBC [Transfuse Red Blood Cells] [COMM] Routine 02/23/17 15:30 Sodium Chloride 0.9% [Normal Saline] 250 ml IV ASDIRECTED 02/23/17 21:00 Furosemide [Lasix] 20 mg IVPUSH NOW ONE - Plan Plan:: I/P: Acute: Pneumonia -Increasing SOB reported by [place] and family -Risk factors: Confusion from dementia (? aspiration), Hx/o lung ca with resection, Lives in specialty SNF -CXR in ED shows right middle lobe pneumonia -RT to assess and treat/IS -f/u cxr 03/21/16 - Parenchymal density in right upper lung likely persistant pneumonia -Oxygen as needed - titrate -Continue IV Levaquin/Vancomycin for pharmacy to dose - Discontinued -F/u CXR in AM Renal failure, Improving -Acute on chronic -Unsure of baseline - obtain old records -BUN 111-->69-->64, Creatinine 3.6-->1.3-->1.2, eGFR 12-->39-->42 -Pharmacy to renally dose medications -Hold nephrotoxic drugs -Fluids - stopped for now -Renal ultrasound to rule out obstructive uropathy- chronic renal disease; atrophied bilateral kidneys -Monitor I&O; wagner in place - discontinued Heart failure -Acute on chronic -Unsure of baseline - obtain old records -Pro-BNP 2506-->7291, repeat level in AM -Echo completed - EF 65-75 -Rales noted on lung sounds - hold fluids -20mg IVP lasix in AM -Monitor Anemia, -Acute on chronic -Monitor H&H -Transfuse as needed, keep Hgb >9.0 -Occult stool + -Gen surg as an OP. Thrombocytopenia -Plt count 119--> 120--> 119--> 87--> 52--> 43 -Total bilirubin, CBC with manual diff, haptoglobin, PT/INR, APTT, LDH ordered -Continue to investigate cause; heme consult as OP Resolved: Septic shock/pneumonia -Levoquin/zosyn; vancomycin stopped. 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 Code status: DNR. Her PCP is Dr. Walden at [facility]. She recently transferred care from Dr. Grullon in [place]. LOS>96 hours with severe infection/sepsis; DC probable 02/27/17 to SNF.
[2017-02-23] MEDS: Famotidine 20 MG Tab PO SCH (23:36)
[2017-02-23] MEDS: Latanoprost 0.005% Ophth Soln 2.5 ML Bottle EYEBOTH SCH (23:38)
[2017-02-24] MEDS: Insulin Aspart 100 Units/ML 3 ML Pen SUBCUT SCH ×3 (06:48→17:23)
[2017-02-24] MEDS: Levothyroxine 100 MCG Tab PO SCH (09:33)
[2017-02-24] MEDS: Metoprolol Tartrate 25 MG Tab PO SCH ×2 (09:34→23:46)
[2017-02-24] MEDS: risperiDONE 0.5 MG Tab PO SCH ×3 (09:34→23:46)
[2017-02-24] MEDS: Folic Acid 1 MG Tab PO SCH (09:35)
[2017-02-24] MEDS: Hydrocortisone Sodium Succinate 100 MG/2 ML SDV IV SCH ×2 (09:36→13:07)
--- NOTE | 2017-02-24 14:53 | PCM.PN ---
<Star Hastings - Last Filed: 02/24/17 16:28> - General Info Admission Dx/Problem (Free Text): Septic Shock and PNA Subjective Update: In to see Johnson. She is lying in bed resting. She denies any chest pain, abdominal pain or shortness of breath. She is quite demented and tired but we do have a basic conversation. No family is in the room. She Denies any complaints currently. She was given blood yesterday and responded well. Occult stool was positive for blood. GS consult ordered. She will likely need outpatient colonoscopy. She will also need outpatient hematology consult as her platelet levels have remained quite low. Functional Status: Reports: Pain Controlled, Tolerating Diet, Ambulating, Urinating. Denies: New Symptoms - Review of Systems General: Reports: Weakness, Fatigue, Malaise. Denies: Fever, Chills, Night Sweats HEENT: Reports: No Symptoms Pulmonary: Reports: No Symptoms. Denies: Shortness of Breath, Pleuritic Chest Pain, Cough, Sputum Cardiovascular: Reports: No Symptoms. Denies: Chest Pain, Palpitations Gastrointestinal: Reports: No Symptoms. Denies: Abdominal Pain Genitourinary: Reports: No Symptoms Musculoskeletal: Reports: No Symptoms Skin: Reports: No Symptoms Neurological: Reports: No Symptoms Psychiatric: Reports: Confusion (baseline ) Systems Review Comment:: ROS hampered by patients confusion. She did answer some basic questions. - Patient Data Vitals - Most Recent: Last Vital Signs Temp 96.4 F 02/24/17 11:54 Pulse 68 02/24/17 11:54 Resp 17 02/24/17 08:23 BP 129/78 02/24/17 11:54 Pulse Ox 96 02/24/17 11:54 Weight - Most Recent: 57.697 kg I&O - Last 24 Hours: Intake & Output 02/23/17 02/24/17 02/24/17 22:59 06:59 14:59 Intake Total 1369 50 360 Balance 1369 50 360 Lab Results Last 24 Hours: Laboratory Results - last 24 hr 02/23/17 02/23/17 02/23/17 Range/Units 08:05 08:05 17:20 Haptoglobin <10 L (44-215) mg/dL Sodium (136-145) mEq/L Potassium (3.5-5.1) mEq/L Chloride (98-107) mEq/L Carbon Dioxide (21-32) mEq/L Anion Gap (5-15) BUN (7-18) mg/dL Creatinine (0.55-1.02) mg/dL Est Cr Clr Drug Dosing mL/min Estimated GFR (MDRD) (>60) mL/min BUN/Creatinine Ratio (14-18) Glucose (83-115) mg/dL POC Glucose 115 H (83-110) mg/dL Calcium (8.5-10.1) mg/dL Blood Type O NEGATIVE Gel Antibody Screen Negative Crossmatch See Detail 02/23/17 02/24/17 02/24/17 Range/Units 23:00 06:02 06:44 Haptoglobin (44-215) mg/dL Sodium 146 H (136-145) mEq/L Potassium 4.2 (3.5-5.1) mEq/L Chloride 112 H (98-107) mEq/L Carbon Dioxide 24 (21-32) mEq/L Anion Gap 14.2 (5-15) BUN 69 H (7-18) mg/dL Creatinine 1.4 H (0.55-1.02) mg/dL Est Cr Clr Drug Dosing 21.39 mL/min Estimated GFR (MDRD) 36 (>60) mL/min BUN/Creatinine Ratio 49.3 H (14-18) Glucose 111 (83-115) mg/dL POC Glucose 101 110 (83-110) mg/dL Calcium 8.0 L (8.5-10.1) mg/dL Blood Type Gel Antibody Screen Crossmatch 02/24/17 Range/Units 11:31 Haptoglobin (44-215) mg/dL Sodium (136-145) mEq/L Potassium (3.5-5.1) mEq/L Chloride (98-107) mEq/L Carbon Dioxide (21-32) mEq/L Anion Gap (5-15) BUN (7-18) mg/dL Creatinine (0.55-1.02) mg/dL Est Cr Clr Drug Dosing mL/min Estimated GFR (MDRD) (>60) mL/min BUN/Creatinine Ratio (14-18) Glucose (83-115) mg/dL POC Glucose 148 H (83-110) mg/dL Calcium (8.5-10.1) mg/dL Blood Type Gel Antibody Screen Crossmatch [facility] Results Last 24 Hours: Microbiology 02/23/17 13:19 Stool Occult Blood (KHOA) - Final Stool / Feces Med Orders - Current: Current Medications Acetaminophen (Tylenol) 650 mg PO Q4H PRN PRN Reason: Pain (Mild 1-3)/fever Hydrocodone Bitart/Acetaminophen ([place] 325-5 Mg) 1 tab PO Q4H PRN PRN Reason: Pain (moderate 4-6) Albuterol/Ipratropium (Duoneb 3.0-0.5 Mg/3 Ml) 3 ml NEB Q4H PRN PRN Reason: Shortness Of Breath/wheezing Last Admin: 02/21/17 11:10 Dose: 3 ml Bisacodyl (Dulcolax) 5 mg PO DAILY PRN PRN Reason: Constipation Dextrose/Water (Dextrose 50% In Water) 50 ml IVPUSH ASDIRECTED PRN PRN Reason: Hypoglycemia Last Admin: 02/16/17 22:22 Dose: 50 ml Docusate Sodium (Colace) 100 mg PO BID PRN PRN Reason: Constipation Last Admin: 02/23/17 06:48 Dose: 100 mg Famotidine (Pepcid) 20 mg PO BEDTIME [facility] Last Admin: 02/23/17 23:36 Dose: 20 mg Flunisolide (Nasalide Nasal [place]) 0 ml MANNY BID [facility] Last Admin: 02/24/17 09:37 Dose: 1 spray Folic Acid (Folic Acid) 1 mg PO DAILY [facility] Last Admin: 02/24/17 09:35 Dose: 1 mg Hydralazine HCl (Apresoline) 10 mg IVPUSH Q4H PRN PRN Reason: Hypertension Last Admin: 02/19/17 20:41 Dose: 10 mg Hydrocortisone Sodium Succinate (Solu-Cortef) 50 mg IV Q24H [facility] Last Admin: 02/24/17 13:07 Dose: Not Given Hydromorphone HCl (Dilaudid) 0.25 mg IVPUSH Q2H PRN PRN Reason: Pain (severe 7-10) Promethazine HCl 6.25 mg/ (Sodium Chloride) 50.25 mls @ 100 mls/hr IV Q6H PRN PRN Reason: Nausea/Vomiting Sodium Chloride (Normal Saline) 250 mls @ 25 mls/hr IV ASDIRECTED [facility] Last Admin: 02/23/17 15:42 Dose: 25 mls/hr Insulin Aspart (Novolog) 0 unit SUBCUT TIDMEALS [facility] PRN Reason: Protocol Last Admin: 02/24/17 13:06 Dose: Not Given Latanoprost (Xalatan 0.005% Ophth Soln) 0 ml EYEBOTH BEDTIME [facility] Last Admin: 02/23/17 23:38 Dose: 1 drop Levothyroxine Sodium (Synthroid) 100 mcg PO DAILY [facility] Last Admin: 02/24/17 09:33 Dose: 100 mcg Lorazepam (Ativan) 0.25 mg IV Q6H PRN PRN Reason: Anxiety Metoprolol Tartrate (Lopressor) 5 mg IVPUSH Q4H PRN PRN Reason: Tachycardia Last Admin: 02/18/17 23:55 Dose: 5 mg Metoprolol Tartrate (Lopressor) 25 mg PO BID [facility] Last Admin: 02/24/17 09:34 Dose: 25 mg Ondansetron HCl (Zofran) 4 mg IV Q6H PRN PRN Reason: Nausea/Vomiting Leflunomide 20mg 0 each PO DAILY [facility] Last Admin: 02/24/17 09:47 Dose: Not Given Polyethylene Glycol (Miralax) 17 gm PO DAILY PRN PRN Reason: Constipation Last Admin: 02/23/17 09:57 Dose: 17 gm Risperidone (Risperidal) 0.5 mg PO TID [facility] Last Admin: 02/24/17 09:34 Dose: 0.5 mg Senna/Docusate Sodium (Senna Plus) 1 tab PO BID PRN PRN Reason: Constipation Sodium Chloride (Saline Flush) 10 ml FLUSH ASDIRECTED PRN PRN Reason: Keep Vein Open Last Admin: 02/16/17 13:29 Dose: 10 ml Discontinued Medications Albuterol/Ipratropium (Duoneb 3.0-0.5 Mg/3 Ml) 3 ml NEB ONETIME ONE Stop: 02/16/17 12:59 Last Admin: 02/16/17 13:15 Dose: 3 ml Bisacodyl (Dulcolax) 10 mg RECTAL ONETIME ONE Stop: 02/19/17 18:16 Last Admin: 02/19/17 18:42 Dose: 10 mg Bumetanide (Bumex) 0.5 mg IVPUSH ONETIME ONE Stop: 02/16/17 22:29 Last Admin: 02/16/17 22:53 Dose: 0.5 mg Calcium Carbonate/Glycine (Tums) 1,000 mg PO ONETIME ONE Stop: 02/16/17 22:28 Last Admin: 02/17/17 00:20 Dose: Not Given Calcium Gluconate (Calcium Gluconate) 1 gm IVPUSH ONETIME ONE Stop: 02/16/17 14:46 Last Admin: 02/16/17 15:17 Dose: 1 gm Dextrose/Water (Dextrose 50% In Water) 50 ml IVPUSH ONETIME ONE Stop: 02/16/17 14:45 Last Admin: 02/16/17 15:12 Dose: 50 ml Famotidine (Pepcid) 20 mg IVPUSH BEDTIME [facility] Last Admin: 02/20/17 20:17 Dose: 20 mg Fluticasone Propionate (Flovent Hfa 110 Mcg) 0 gm INH DAILY [facility] Last Admin: 02/21/17 13:11 Dose: Not Given Furosemide (Lasix) 10 mg IVPUSH NOW ONE Stop: 02/18/17 08:49 Last Admin: 02/18/17 10:10 Dose: 10 mg Furosemide (Lasix) 20 mg IVPUSH NOW ONE Stop: 02/23/17 07:01 Last Admin: 02/23/17 06:49 Dose: 20 mg Furosemide (Lasix) 20 mg IVPUSH NOW ONE Stop: 02/23/17 17:01 Last Admin: 02/23/17 18:33 Dose: 20 mg Furosemide (Lasix) 20 mg IVPUSH NOW ONE Stop: 02/23/17 21:01 Last Admin: 02/23/17 23:34 Dose: 20 mg Hydrocortisone Sodium Succinate (Solu-Cortef) 100 mg IVPUSH Q8H [facility] Stop: 02/20/17 07:00 Last Admin: 02/20/17 02:07 Dose: 100 mg Hydrocortisone Sodium Succinate (Solu-Cortef) 50 mg IV Q8H [facility] Last Admin: 02/22/17 10:21 Dose: 50 mg Hydromorphone HCl (Dilaudid) 0.25 mg IVPUSH Q2H PRN PRN Reason: Pain (severe 7-10) Lactated Ringer's (Ringers, Lactated) 1,000 mls @ 999 mls/hr IV .BOLUS ONE Stop: 02/16/17 14:10 Last Admin: 02/16/17 13:29 Dose: 999 mls/hr Sodium Chloride (Normal Saline) 750 mls @ 1,000 mls/hr IV .BOLUS ONE Stop: 02/16/17 14:15 Last Admin: 02/16/17 15:30 Dose: 1,000 mls/hr Levofloxacin/Dextrose 750 mg/ (Premix) 150 mls @ 100 mls/hr IV ONETIME ONE Stop: 02/16/17 15:24 Last Admin: 02/16/17 14:11 Dose: 100 mls/hr Norepinephrine Bitartrate 4 mg (/ Dextrose/Water) 250 mls @ 7.5 mls/hr IV TITRATE DEMETRI; 2 MCG/MIN PRN Reason: Protocol Last Titration: 02/17/17 07:45 Dose: 0 mcg/min, 0 mls/hr Sodium Chloride (Normal Saline) Confirm Administered Dose 1,000 mls @ as directed .ROUTE .STK-MED ONE Stop: 02/16/17 14:07 Last Admin: 02/16/17 15:30 Dose: Not Given Levofloxacin/Dextrose (Levaquin In D5w 750 Mg/150 Ml) Confirm Administered Dose 150 mls @ as directed IV .STK-MED ONE Stop: 02/16/17 14:08 Last Admin: 02/16/17 15:29 Dose: Not Given Sodium Chloride (Normal Saline) Confirm Administered Dose 1,000 mls @ as directed .ROUTE .STK-MED ONE Stop: 02/16/17 15:28 Last Admin: 02/16/17 15:30 Dose: Not Given Vancomycin HCl 1 gm/Vancomycin HCl 500 mg/ Sodium Chloride 500 mls @ 125 mls/ hr IV Q24H DEMETRI Stop: 02/16/17 21:59 Last Admin: 02/16/17 18:26 Dose: 125 mls/hr Levofloxacin/Dextrose 500 mg/ (Premix) 100 mls @ 66.667 mls/hr IV Q48H [facility] Last Admin: 02/20/17 22:06 Dose: 66.667 mls/hr Sodium Chloride (Normal Saline) 1,000 mls @ 50 mls/hr IV ASDIRECTED DEMETRI Dextrose/Sodium Chloride (Dextrose 5%-Normal Saline) 1,000 mls @ 15 mls/hr IV ASDIRECTED DEMETRI Last Admin: 02/16/17 22:58 Dose: 15 mls/hr Magnesium Sulfate (Magnesium Sulfate 2 Gm In Water 50 Ml) 50 mls @ 50 mls/hr IV ONETIME ONE Stop: 02/17/17 00:14 Last Admin: 02/17/17 00:27 Dose: 50 mls/hr Vancomycin HCl 1 gm/ Sodium (Chloride) 250 mls @ 166.667 mls/hr IV Q48H [facility] Last Admin: 02/20/17 19:53 Dose: 166.667 mls/hr Dextrose/Water (Dextrose 5% In Water) 1,000 mls @ 75 mls/hr IV ASDIRECTED [facility] Last Admin: 02/21/17 17:47 Dose: 75 mls/hr Magnesium Sulfate 2 gm/ Premix 50 mls @ 25 mls/hr IV ONETIME ONE Stop: 02/20/17 18:01 Last Admin: 02/20/17 16:11 Dose: 25 mls/hr Vancomycin HCl 500 mg/ Sodium (Chloride) 250 mls @ 166.667 mls/hr IV ONETIME ONE Stop: 02/20/17 22:29 Last Admin: 02/20/17 22:04 Dose: 166.667 mls/hr Vancomycin HCl 1 gm/Vancomycin HCl 500 mg/ Sodium Chloride 500 mls @ 333 mls/ hr IV Q48H [facility] Insulin Aspart (Novolog) 0 unit SUBCUT Q6HR [facility] PRN Reason: Protocol Last Admin: 02/20/17 17:59 Dose: 1 units Insulin Human Regular (Humulin R) 10 unit SUBCUT BIDAC [facility] PRN Reason: Protocol Last Admin: 02/16/17 15:10 Dose: 10 unit Magnesium Sulfate (Pharmacy To Dose - Magnesium Replacement) 1 dose .XX ASDIRECTED [facility] Norepinephrine Bitartrate (Levophed) Confirm Administered Dose 4 mg .ROUTE .STK- MED ONE Stop: 02/17/17 04:45 Last Admin: 02/17/17 05:05 Dose: Not Given Pantoprazole Sodium (Protonix Iv) 40 mg IVPUSH ONETIME ONE Stop: 02/16/17 18:12 Last Admin: 02/16/17 19:03 Dose: 40 mg Potassium Chloride (Pharmacy To Dose - Potassium Replacement) 1 dose .XX ASDIRECTED [facility] Potassium Chloride (Klor-Con M20) 40 meq PO ONETIME ONE Stop: 02/23/17 13:55 Last Admin: 02/23/17 14:25 Dose: 40 meq Sodium Polystyrene Sulfonate (Kayexalate) 45 gm RECTAL NOW ONE Stop: 02/16/17 18:22 Last Admin: 02/16/17 18:52 Dose: 45 gm Sodium Polystyrene Sulfonate (Kayexalate) 15 gm PO ONETIME ONE Stop: 02/17/17 16:04 Last Admin: 02/17/17 16:38 Dose: 15 gm Vancomycin HCl (Pharmacy To Dose - Vancomycin) 1 dose .XX ASDIRECTED DEMETRI - Exam Quality Assessment: DVT Prophylaxis General: Alert, Cooperative, No Acute Distress HEENT: Pupils Equal, Pupils Reactive, EOMI, Mucous Membr. Moist/[place] Neck: Supple, Trachea Midline, No JVD, No Thyromegaly Lungs: Normal Respiratory Effort, Rhonchi (improved ), Wheezing (improved ) Cardiovascular: Regular Rate, Regular Rhythm GI/Abdominal Exam: Normal Bowel Sounds, Soft, Non-Tender, No Organomegaly, No Distention, No Abnormal Bruit, No Mass, Pelvis Stable (Female) Exam: Deferred Back Exam: Normal Inspection Extremities: Normal Inspection, Normal Range of Motion, Non-Tender, No Pedal Edema, Normal Capillary Refill Peripheral Pulses: 2+: Radial (L), Radial (R), Posterior Tibial (L), Posterior Tibial (R), Dorsalis Pedis (L), Dorsalis Pedis (R) Skin: Warm, Dry, Intact Neurological: No New Focal Deficit Psy/Mental Status: Alert - Problem List & Annotations (1) Septic shock SNOMED Code(s): 63253882 Code(s): A41.9 - SEPSIS, UNSPECIFIED ORGANISM; R65.21 - SEVERE SEPSIS WITH SEPTIC SHOCK Status: Resolved Priority: High Current Visit: Yes (2) Hyperkalemia SNOMED Code(s): 51082367 Code(s): E87.5 - HYPERKALEMIA Status: Resolved Priority: High Current Visit: Yes (3) Renal failure SNOMED Code(s): 64046725 Code(s): N19 - UNSPECIFIED KIDNEY FAILURE Status: Acute Priority: High Current Visit: Yes QualifierTitle: Renal failure chronicity: acute Acute renal failure type : unspecified Qualified Code(s): N17.9 - Acute kidney failure, unspecified (4) Pneumonia SNOMED Code(s): 103041104 Code(s): J18.9 - PNEUMONIA, UNSPECIFIED ORGANISM Status: Acute Priority: High Current Visit: Yes QualifierTitle: Pneumonia type: due to unspecified organism Laterality: right Lung location: middle lobe of lung Qualified Code(s): J18.1 - Lobar pneumonia, unspecified organism (5) Hypotension SNOMED Code(s): 74050569 Code(s): I95.9 - HYPOTENSION, UNSPECIFIED Status: Resolved Priority: High Current Visit: Yes QualifierTitle: Hypotension type: unspecified hypotension type Qualified Code(s): I95.9 - Hypotension, unspecified (6) Anemia SNOMED Code(s): 681346673 Code(s): D64.9 - ANEMIA, UNSPECIFIED Status: Acute Priority: High Current Visit: Yes QualifierTitle: Anemia type: other cause Other causes of anemia: other cause, not classified Qualified Code(s): D64.89 - Other specified anemias (7) Hypothyroidism SNOMED Code(s): 33670735 Code(s): E03.9 - HYPOTHYROIDISM, UNSPECIFIED Status: Chronic Priority: Low Current Visit: No QualifierTitle: Hypothyroidism type: acquired Qualified Code(s): E03.9 - Hypothyroidism, unspecified (8) HLD (hyperlipidemia) SNOMED Code(s): 29580886 Code(s): E78.5 - HYPERLIPIDEMIA, UNSPECIFIED Status: Chronic Priority: Low Current Visit: No QualifierTitle: Hyperlipidemia type: pure hypercholesterolemia Qualified Code(s): E78.00 - Pure hypercholesterolemia, unspecified; E78.0 - Pure hypercholesterolemia (9) Mild cognitive impairment SNOMED Code(s): 687856253 Code(s): G31.84 - MILD COGNITIVE IMPAIRMENT, SO STATED Status: Chronic Priority: Low Current Visit: No (10) Insomnia SNOMED Code(s): 855158941 Code(s): G47.00 - INSOMNIA, UNSPECIFIED Status: Chronic Priority: Low Current Visit: No QualifierTitle: Insomnia type: primary Qualified Code(s): F51.01 - Primary insomnia (11) Glaucoma SNOMED Code(s): 53651082 Code(s): H40.9 - UNSPECIFIED GLAUCOMA Status: Chronic Priority: Low Current Visit: No QualifierTitle: Glaucoma type: unspecified Laterality: unspecified laterality Qualified Code(s): H40.9 - Unspecified glaucoma (12) HTN (hypertension) SNOMED Code(s): 70830385 Code(s): I10 - ESSENTIAL (PRIMARY) HYPERTENSION Status: Chronic Priority : Low Current Visit: No (13) CAD (coronary artery disease) SNOMED Code(s): 96090872 Code(s): I25.10 - ATHSCL HEART DISEASE OF [place] CORONARY ARTERY W/O ANG PCTRS Status: Chronic Priority: Low Current Visit: No QualifierTitle: Coronary Disease-Associated Artery/Lesion type: [place] artery [place] vs. transplanted heart: [place] heart Associated angina: angina presence unspecified Qualified Code(s): I25.10 - Atherosclerotic heart disease of [place] coronary artery without angina pectoris (14) Heart failure SNOMED Code(s): 66785698 Code(s): I50.9 - HEART FAILURE, UNSPECIFIED Status: Acute Priority: Medium Current Visit: Yes QualifierTitle: Heart failure type: unspecified heart failure type Heart failure chronicity: acute on chronic Qualified Code(s): I50.9 - Heart failure , unspecified (15) GERD (gastroesophageal reflux disease) SNOMED Code(s): 072571219 Code(s): K21.9 - GASTRO-ESOPHAGEAL REFLUX DISEASE WITHOUT ESOPHAGITIS Status: Chronic Priority: Low Current Visit: No QualifierTitle: Esophagitis presence: without esophagitis Qualified Code( s): K21.9 - Gastro-esophageal reflux disease without esophagitis (16) Rheumatoid arteritis SNOMED Code(s): 196161401 Code(s): I00 - RHEUMATIC FEVER WITHOUT HEART INVOLVEMENT Status: Chronic Priority: Low Current Visit: No (17) Osteoarthritis SNOMED Code(s): 455000919 Code(s): M19.90 - UNSPECIFIED OSTEOARTHRITIS, UNSPECIFIED SITE Status: Chronic Priority: Low Current Visit: No QualifierTitle: Osteoarthritis location: unspecified site Osteoarthritis type: primary Qualified Code(s): M19.91 - Primary osteoarthritis, unspecified site (18) Low back pain SNOMED Code(s): 206125386 Code(s): M54.5 - LOW BACK PAIN Status: Chronic Priority: Low Current Visit: No QualifierTitle: Chronicity: unspecified Back pain laterality: unspecified Sciatica presence: unspecified whether sciatica present Qualified Code(s): M54.5 - Low back pain (19) Visual hallucinations SNOMED Code(s): 06204848 Code(s): R44.1 - VISUAL HALLUCINATIONS Status: Chronic Priority: Low Current Visit: No (20) Thrombocytopenia SNOMED Code(s): 325492875 Code(s): D69.6 - THROMBOCYTOPENIA, UNSPECIFIED Status: Acute Priority: Medium Current Visit: Yes - Problem List Review Problem List Initiated/Reviewed/Updated: Yes - My Orders Last 24 Hours: My Active Orders 02/25/17 05:11 BASIC METABOLIC PANEL,BMP [CHEM] AM - Plan Plan:: I/P: Acute: Pneumonia -Increasing SOB reported by [place] and family -Risk factors: Confusion from dementia (? aspiration), Hx/o lung ca with resection, Lives in specialty SNF -CXR in ED shows right middle lobe pneumonia -RT to assess and treat/IS -f/u cxr 03/21/16 - Parenchymal density in right upper lung likely persistant pneumonia -Oxygen as needed - titrate -Continue IV Levaquin/Vancomycin for pharmacy to dose - Discontinued -F/u CXR (02/23/17) - Continued consolidation is seen, Increased density but slightly smaller in size -Slightly elevated WBC today, although on steroid -Will restart Levaquin and add Zosyn. Renal failure -Acute on chronic -Unsure of baseline - obtain old records -BUN 111-->69-->64-->72-->69, Creatinine 3.6-->1.3-->1.2-->1.3-->1.2, eGFR 12 -->39-->42-->39-->34 -Pharmacy to renally dose medications -Hold nephrotoxic drugs -Fluids - stopped for now -Renal ultrasound to rule out obstructive uropathy- chronic renal disease; atrophied bilateral kidneys -Monitor I&O; wagner in place - discontinued -Balance need to diurese with worsening renal failure Heart failure -Acute on chronic -Unsure of baseline - obtain old records -Pro-BNP 2506-->7291-->1235 -Echo completed - EF 65-75 -Rales noted on lung sounds - hold fluids -Diurese as needed -Monitor Anemia, -Acute on chronic -Unsure of baseline - obtain old records -Hgb 7.9--> 11.7-->7.8-->8.4-->7.8, Hct 25.3-->36.7-->24.4, Heme + stool in ED, INR 1.15, APTT 43 -No reported hematemesis, melena, hematochezia. -S/p 2 units PRBCs transfusion, 2 more units given yesterday -Monitor H&H -Type and cross -Occult stool - positive -Surgical consult ordered Thrombocytopenia -Plt count 119--> 120--> 119--> 87--> 52--> 43-->40 -Total bilirubin 1.1, haptoglobin <10, PT/INR 12.6/1.15, APTT 31, LDH 687 -Will need outpatient Hematology consult -Continue to investigate cause Resolved: Septic shock -2/2 pneumonia -Hypotensive -Rales in right lower lobe -Hypothermic on arrival -89.6 F rectally -Vero hugger in place -WBC 14.93 -CRP 4.7 -UA negative -INR 1.15 -APTT 43 -Blood cultures - pending -Serum cortisol level - ordered -procalcitonin - ordered -1700 ml fluid bolus in ED -Levaquin 750 given in ED - continue -Vancomycin - pharmacy to dose -Solu-cortif Q6 -Fluids as ordered -NPO -Critical patient - strict I&O -Wagner in place Anion gap metabolic acidosis -2/2 sepsis -Anion gap 24.6 --> 22.6 -Carbon Dioxide 14-- 15 -Fluids as ordered Hyperkalemia, Improved -Potassium 6.6 in ED--> now 5.6 -1gm calcium gluconate given in ED -10 unit humulin given in ED -1700ml fluid bolus given in ED -45gm Kayexalate rectally last night; oral dose 15 mg po x1 now -Given 40mg lasix by EMS crew -Hx/o hypokalemia -Avoid lasix due to poor renal function Hypotension -2/2 above -BP 61/45 on arrival -HR 60 -Fluid bolus given in ED -Fluids as ordered -Norepinephrine drip - titrate per protocol Chronic: Hypothyroidism HLD Hypokalemia Dementia w/o behavioral disturbance Mild cognitive impairment Insomnia Glaucoma CAD GERD RA Lower back pain OA Visual hallucinations Hx/o TIA Hx/o GA Hx/o lung neoplasm with lobectomy Plan: She is slowly improving clinically Continue current treatment Continue PT/OT/Spiritual care Swallow Eval Consult - Return to regular diet Routine AM labs GI Prophylaxis protonix DVT/PE prophylaxis: TEDS and ambulation as tolerated CM/SW for discharge planning Other orders as indicated above Will need outpatient Hematology consult due to low platelet levels and general surgery/GI consult for GI bleed. Code status: DNR. Her PCP is Dr. Walden at . She recently transferred care from Dr. Grullon in [place]. LOS>96 hours with severe infection/sepsis; Likely discharge 02/28/16 to [place] <Era López - Last Filed: 02/25/17 16:04> - Patient Data Vitals - Most Recent: Last Vital Signs Temp 35.9 C 02/25/17 13:26 Pulse 71 02/25/17 13:26 Resp 16 02/25/17 13:26 BP 131/68 02/25/17 13:26 Pulse Ox 95 02/25/17 13:26 I&O - Last 24 Hours: Intake & Output 02/25/17 02/25/17 02/25/17 06:59 14:59 22:59 Intake Total 550 330 Balance 550 330 Lab Results Last 24 Hours: Laboratory Results - last 24 hr 02/24/17 02/25/17 02/25/17 Range/Units 17:21 05:55 05:55 WBC 10.91 H (3.98-10.04) K/mm3 RBC 3.66 L (3.98-5.22) M/mm3 Hgb 10.9 L (11.2-15.7) gm/L Hct 33.0 L (34.1-44.9) % MCV 90.2 (79.4-94.8) fl MCH 29.8 (25.6-32.2) pg MCHC 33.0 (32.2-35.5) g/dl RDW Std Deviation 56.5 H (36.4-46.3) fL Plt Count 50 L (182-369) K/mm3 MPV TNP Neut % (Auto) 87.4 H (34.0-71.1) % Lymph % (Auto) 2.7 L (19.3-51.7) % [place] % (Auto) 8.3 (4.7-12.5) % Eos % (Auto) 0.5 L (0.7-5.8) Baso % (Auto) 0.1 (0.1-1.2) % Neut # (Auto) 9.53 H (1.56-6.13) K/mm3 Lymph # (Auto) 0.29 L (1.18-3.74) K/mm3 [place] # (Auto) 0.91 H (0.24-0.36) K/mm3 Eos # (Auto) 0.06 (0.04-0.36) K/mm3 Baso # (Auto) 0.01 (0.01-0.08) K/mm3 Manual Slide Review Abnormal smear Sodium 147 H (136-145) mEq/L Potassium 3.8 (3.5-5.1) mEq/L Chloride 114 H (98-107) mEq/L Carbon Dioxide 22 (21-32) mEq/L Anion Gap 14.8 (5-15) BUN 54 H (7-18) mg/dL Creatinine 1.2 H (0.55-1.02) mg/dL Est Cr Clr Drug Dosing 24.95 mL/min Estimated GFR (MDRD) 42 (>60) mL/min BUN/Creatinine Ratio 45.0 H (14-18) Glucose 85 (83-115) mg/dL POC Glucose 130 H (83-110) mg/dL Calcium 7.8 L (8.5-10.1) mg/dL 02/25/17 02/25/17 Range/Units 06:50 11:58 WBC (3.98-10.04) K/mm3 RBC (3.98-5.22) M/mm3 Hgb (11.2-15.7) gm/L Hct (34.1-44.9) % MCV (79.4-94.8) fl MCH (25.6-32.2) pg MCHC (32.2-35.5) g/dl RDW Std Deviation (36.4-46.3) fL Plt Count (182-369) K/mm3 MPV Neut % (Auto) (34.0-71.1) % Lymph % (Auto) (19.3-51.7) % [place] % (Auto) (4.7-12.5) % Eos % (Auto) (0.7-5.8) Baso % (Auto) (0.1-1.2) % Neut # (Auto) (1.56-6.13) K/mm3 Lymph # (Auto) (1.18-3.74) K/mm3 [place] # (Auto) (0.24-0.36) K/mm3 Eos # (Auto) (0.04-0.36) K/mm3 Baso # (Auto) (0.01-0.08) K/mm3 Manual Slide Review Sodium (136-145) mEq/L Potassium (3.5-5.1) mEq/L Chloride (98-107) mEq/L Carbon Dioxide (21-32) mEq/L Anion Gap (5-15) BUN (7-18) mg/dL Creatinine (0.55-1.02) mg/dL Est Cr Clr Drug Dosing mL/min Estimated GFR (MDRD) (>60) mL/min BUN/Creatinine Ratio (14-18) Glucose (83-115) mg/dL POC Glucose 97 112 H (83-110) mg/dL Calcium (8.5-10.1) mg/dL Med Orders - Current: Current Medications Acetaminophen (Tylenol) 650 mg PO Q4H PRN PRN Reason: Pain (Mild 1-3)/fever Hydrocodone Bitart/Acetaminophen ([place] 325-5 Mg) 1 tab PO Q4H PRN PRN Reason: Pain (moderate 4-6) Albuterol/Ipratropium (Duoneb 3.0-0.5 Mg/3 Ml) 3 ml NEB Q4H PRN PRN Reason: Shortness Of Breath/wheezing Last Admin: 02/21/17 11:10 Dose: 3 ml Bisacodyl (Dulcolax) 5 mg PO DAILY PRN PRN Reason: Constipation Dextrose/Water (Dextrose 50% In Water) 50 ml IVPUSH ASDIRECTED PRN PRN Reason: Hypoglycemia Last Admin: 02/16/17 22:22 Dose: 50 ml Docusate Sodium (Colace) 100 mg PO BID PRN PRN Reason: Constipation Last Admin: 02/23/17 06:48 Dose: 100 mg Famotidine (Pepcid) 20 mg PO BEDTIME [facility] Last Admin: 02/24/17 23:46 Dose: 20 mg Flunisolide (Nasalide Nasal [place]) 0 ml MANNY BID [facility] Last Admin: 02/25/17 11:17 Dose: Not Given Folic Acid (Folic Acid) 1 mg PO DAILY [facility] Last Admin: 02/25/17 11:17 Dose: Not Given Hydralazine HCl (Apresoline) 10 mg IVPUSH Q4H PRN PRN Reason: Hypertension Last Admin: 02/19/17 20:41 Dose: 10 mg Hydrocortisone Sodium Succinate (Solu-Cortef) 50 mg IV Q24H [facility] Last Admin: 02/25/17 13:12 Dose: 50 mg Hydromorphone HCl (Dilaudid) 0.25 mg IVPUSH Q2H PRN PRN Reason: Pain (severe 7-10) Promethazine HCl 6.25 mg/ (Sodium Chloride) 50.25 mls @ 100 mls/hr IV Q6H PRN PRN Reason: Nausea/Vomiting Levofloxacin/Dextrose 750 mg/ (Premix) 150 mls @ 100 mls/hr IV Q48H [facility] Last Admin: 02/24/17 20:17 Dose: 100 mls/hr Piperacillin Sod/Tazobactam (Sod 4.5 gm/ Sodium Chloride) 100 mls @ 25 mls/hr IV Q8H [facility] Last Admin: 02/25/17 07:56 Dose: 25 mls/hr Insulin Aspart (Novolog) 0 unit SUBCUT TIDMEALS [facility] PRN Reason: Protocol Last Admin: 02/25/17 13:12 Dose: Not Given Latanoprost (Xalatan 0.005% Ophth Soln) 0 ml EYEBOTH BEDTIME [facility] Last Admin: 02/24/17 23:46 Dose: 1 drop Levothyroxine Sodium (Synthroid) 100 mcg PO DAILY [facility] Last Admin: 02/25/17 11:18 Dose: Not Given Lorazepam (Ativan) 0.25 mg IV Q6H PRN PRN Reason: Anxiety Metoprolol Tartrate (Lopressor) 5 mg IVPUSH Q4H PRN PRN Reason: Tachycardia Last Admin: 02/18/17 23:55 Dose: 5 mg Metoprolol Tartrate (Lopressor) 25 mg PO BID [facility] Last Admin: 02/25/17 11:17 Dose: Not Given Ondansetron HCl (Zofran) 4 mg IV Q6H PRN PRN Reason: Nausea/Vomiting Leflunomide 20mg 0 each PO DAILY [facility] Last Admin: 02/25/17 11:17 Dose: Not Given Polyethylene Glycol (Miralax) 17 gm PO DAILY PRN PRN Reason: Constipation Last Admin: 02/23/17 09:57 Dose: 17 gm Risperidone (Risperidal) 0.5 mg PO TID [facility] Last Admin: 02/25/17 11:18 Dose: Not Given Senna/Docusate Sodium (Senna Plus) 1 tab PO BID PRN PRN Reason: Constipation Sodium Chloride (Saline Flush) 10 ml FLUSH ASDIRECTED PRN PRN Reason: Keep Vein Open Last Admin: 02/16/17 13:29 Dose: 10 ml Discontinued Medications Albuterol/Ipratropium (Duoneb 3.0-0.5 Mg/3 Ml) 3 ml NEB ONETIME ONE Stop: 02/16/17 12:59 Last Admin: 02/16/17 13:15 Dose: 3 ml Bisacodyl (Dulcolax) 10 mg RECTAL ONETIME ONE Stop: 02/19/17 18:16 Last Admin: 02/19/17 18:42 Dose: 10 mg Bumetanide (Bumex) 0.5 mg IVPUSH ONETIME ONE Stop: 02/16/17 22:29 Last Admin: 02/16/17 22:53 Dose: 0.5 mg Calcium Carbonate/Glycine (Tums) 1,000 mg PO ONETIME ONE Stop: 02/16/17 22:28 Last Admin: 02/17/17 00:20 Dose: Not Given Calcium Gluconate (Calcium Gluconate) 1 gm IVPUSH ONETIME ONE Stop: 02/16/17 14:46 Last Admin: 02/16/17 15:17 Dose: 1 gm Dextrose/Water (Dextrose 50% In Water) 50 ml IVPUSH ONETIME ONE Stop: 02/16/17 14:45 Last Admin: 02/16/17 15:12 Dose: 50 ml Famotidine (Pepcid) 20 mg IVPUSH BEDTIME [facility] Last Admin: 02/20/17 20:17 Dose: 20 mg Fluticasone Propionate (Flovent Hfa 110 Mcg) 0 gm INH DAILY [facility] Last Admin: 02/21/17 13:11 Dose: Not Given Furosemide (Lasix) 10 mg IVPUSH NOW ONE Stop: 02/18/17 08:49 Last Admin: 02/18/17 10:10 Dose: 10 mg Furosemide (Lasix) 20 mg IVPUSH NOW ONE Stop: 02/23/17 07:01 Last Admin: 02/23/17 06:49 Dose: 20 mg Furosemide (Lasix) 20 mg IVPUSH NOW ONE Stop: 02/23/17 17:01 Last Admin: 02/23/17 18:33 Dose: 20 mg Furosemide (Lasix) 20 mg IVPUSH NOW ONE Stop: 02/23/17 21:01 Last Admin: 02/23/17 23:34 Dose: 20 mg Hydrocortisone Sodium Succinate (Solu-Cortef) 100 mg IVPUSH Q8H [facility] Stop: 02/20/17 07:00 Last Admin: 02/20/17 02:07 Dose: 100 mg Hydrocortisone Sodium Succinate (Solu-Cortef) 50 mg IV Q8H [facility] Last Admin: 02/22/17 10:21 Dose: 50 mg Hydromorphone HCl (Dilaudid) 0.25 mg IVPUSH Q2H PRN PRN Reason: Pain (severe 7-10) Lactated Ringer's (Ringers, Lactated) 1,000 mls @ 999 mls/hr IV .BOLUS ONE Stop: 02/16/17 14:10 Last Admin: 02/16/17 13:29 Dose: 999 mls/hr Sodium Chloride (Normal Saline) 750 mls @ 1,000 mls/hr IV .BOLUS ONE Stop: 02/16/17 14:15 Last Admin: 02/16/17 15:30 Dose: 1,000 mls/hr Levofloxacin/Dextrose 750 mg/ (Premix) 150 mls @ 100 mls/hr IV ONETIME ONE Stop: 02/16/17 15:24 Last Admin: 02/16/17 14:11 Dose: 100 mls/hr Norepinephrine Bitartrate 4 mg (/ Dextrose/Water) 250 mls @ 7.5 mls/hr IV TITRATE [facility]; 2 MCG/MIN PRN Reason: Protocol Last Titration: 02/17/17 07:45 Dose: 0 mcg/min, 0 mls/hr Sodium Chloride (Normal Saline) Confirm Administered Dose 1,000 mls @ as directed .ROUTE .[facility] ONE Stop: 02/16/17 14:07 Last Admin: 02/16/17 15:30 Dose: Not Given Levofloxacin/Dextrose (Levaquin In D5w 750 Mg/150 Ml) Confirm Administered Dose 150 mls @ as directed IV .[facility] ONE Stop: 02/16/17 14:08 Last Admin: 02/16/17 15:29 Dose: Not Given Sodium Chloride (Normal Saline) Confirm Administered Dose 1,000 mls @ as directed .ROUTE .[facility] ONE Stop: 02/16/17 15:28 Last Admin: 02/16/17 15:30 Dose: Not Given Vancomycin HCl 1 gm/Vancomycin HCl 500 mg/ Sodium Chloride 500 mls @ 125 mls/ hr IV Q24H [facility] Stop: 02/16/17 21:59 Last Admin: 02/16/17 18:26 Dose: 125 mls/hr Levofloxacin/Dextrose 500 mg/ (Premix) 100 mls @ 66.667 mls/hr IV Q48H [facility] Last Admin: 02/20/17 22:06 Dose: 66.667 mls/hr Sodium Chloride (Normal Saline) 1,000 mls @ 50 mls/hr IV ASDIRECTED [facility] Dextrose/Sodium Chloride (Dextrose 5%-Normal Saline) 1,000 mls @ 15 mls/hr IV ASDIRECTED [facility] Last Admin: 02/16/17 22:58 Dose: 15 mls/hr Magnesium Sulfate (Magnesium Sulfate 2 Gm In Water 50 Ml) 50 mls @ 50 mls/hr IV ONETIME ONE Stop: 02/17/17 00:14 Last Admin: 02/17/17 00:27 Dose: 50 mls/hr Vancomycin HCl 1 gm/ Sodium (Chloride) 250 mls @ 166.667 mls/hr IV Q48H [facility] Last Admin: 02/20/17 19:53 Dose: 166.667 mls/hr Dextrose/Water (Dextrose 5% In Water) 1,000 mls @ 75 mls/hr IV ASDIRECTED [facility] Last Admin: 02/21/17 17:47 Dose: 75 mls/hr Magnesium Sulfate 2 gm/ Premix 50 mls @ 25 mls/hr IV ONETIME ONE Stop: 02/20/17 18:01 Last Admin: 02/20/17 16:11 Dose: 25 mls/hr Vancomycin HCl 500 mg/ Sodium (Chloride) 250 mls @ 166.667 mls/hr IV ONETIME ONE Stop: 02/20/17 22:29 Last Admin: 02/20/17 22:04 Dose: 166.667 mls/hr Vancomycin HCl 1 gm/Vancomycin HCl 500 mg/ Sodium Chloride 500 mls @ 333 mls/ hr IV Q48H [facility] Sodium Chloride (Normal Saline) 250 mls @ 25 mls/hr IV ASDIRECTED [facility] Last Admin: 02/23/17 15:42 Dose: 25 mls/hr Piperacillin Sod/Tazobactam (Sod 4.5 gm/ Sodium Chloride) 100 mls @ 200 mls/hr IV ONETIME ONE Stop: 02/24/17 16:29 Last Admin: 02/24/17 17:23 Dose: 200 mls/hr Insulin Aspart (Novolog) 0 unit SUBCUT Q6HR [facility] PRN Reason: Protocol Last Admin: 02/20/17 17:59 Dose: 1 units Insulin Human Regular (Humulin R) 10 unit SUBCUT BIDAC [facility] PRN Reason: Protocol Last Admin: 02/16/17 15:10 Dose: 10 unit Magnesium Sulfate (Pharmacy To Dose - Magnesium Replacement) 1 dose .XX ASDIRECTED [facility] Norepinephrine Bitartrate (Levophed) Confirm Administered Dose 4 mg .ROUTE .[facility]- [facility] ONE Stop: 02/17/17 04:45 Last Admin: 02/17/17 05:05 Dose: Not Given Pantoprazole Sodium (Protonix Iv) 40 mg IVPUSH ONETIME ONE Stop: 02/16/17 18:12 Last Admin: 02/16/17 19:03 Dose: 40 mg Potassium Chloride (Pharmacy To Dose - Potassium Replacement) 1 dose .XX ASDIRECTED [facility] Potassium Chloride (Klor-Con M20) 40 meq PO ONETIME ONE Stop: 02/23/17 13:55 Last Admin: 02/23/17 14:25 Dose: 40 meq Sodium Polystyrene Sulfonate (Kayexalate) 45 gm RECTAL NOW ONE Stop: 02/16/17 18:22 Last Admin: 02/16/17 18:52 Dose: 45 gm Sodium Polystyrene Sulfonate (Kayexalate) 15 gm PO ONETIME ONE Stop: 12/29/17 16:04 Last Admin: 02/17/17 16:38 Dose: 15 gm Vancomycin HCl (Pharmacy To Dose - Vancomycin) 1 dose .XX ASDIRECTED [facility] - Problem List & Annotations (1) Anemia SNOMED Code(s): 792888511 Code(s): D64.9 - ANEMIA, UNSPECIFIED Status: Acute Priority: High Current Visit: Yes Qualifiers: Anemia type: other cause Other causes of anemia: other cause, not classified Qualified Code(s): D64.89 - Other specified anemias (2) Heart failure SNOMED Code(s): 75913112 Code(s): I50.9 - HEART FAILURE, UNSPECIFIED Status: Acute Priority: Medium Current Visit: Yes Qualifiers: Heart failure type: unspecified heart failure type Heart failure chronicity : acute on chronic Qualified Code(s): I50.9 - Heart failure, unspecified (3) Pneumonia SNOMED Code(s): 674128097 Code(s): J18.9 - PNEUMONIA, UNSPECIFIED ORGANISM Status: Acute Priority: High Current Visit: Yes Qualifiers: Pneumonia type: due to unspecified organism Laterality: right Lung location: middle lobe of lung Qualified Code(s): J18.1 - Lobar pneumonia, unspecified organism (4) Renal failure SNOMED Code(s): 48484256 Code(s): N19 - UNSPECIFIED KIDNEY FAILURE Status: Acute Priority: High Current Visit: Yes Qualifiers: Renal failure chronicity: acute Acute renal failure type: unspecified Qualified Code(s): N17.9 - Acute kidney failure, unspecified (5) Hyperkalemia SNOMED Code(s): 24954639 Code(s): E87.5 - HYPERKALEMIA Status: Resolved Priority: High Current Visit: Yes (6) Hypotension SNOMED Code(s): 30537380 Code(s): I95.9 - HYPOTENSION, UNSPECIFIED Status: Resolved Priority: High Current Visit: Yes Qualifiers: Hypotension type: unspecified hypotension type Qualified Code(s): I95.9 - Hypotension, unspecified (7) Septic shock SNOMED Code(s): 91716773 Code(s): A41.9 - SEPSIS, UNSPECIFIED ORGANISM; R65.21 - SEVERE SEPSIS WITH SEPTIC SHOCK Status: Resolved Priority: High Current Visit: Yes (8) CAD (coronary artery disease) SNOMED Code(s): 70870547 Code(s): I25.10 - ATHSCL HEART DISEASE OF [place] CORONARY ARTERY W/O ANG PCTRS Status: Chronic Priority: Low Current Visit: No Qualifiers: Coronary Disease-Associated Artery/Lesion type: [place] artery [place] vs. transplanted heart: [place] heart Associated angina: angina presence unspecified Qualified Code(s): I25.10 - Atherosclerotic heart disease of [place] coronary artery without angina pectoris (9) GERD (gastroesophageal reflux disease) SNOMED Code(s): 584413057 Code(s): K21.9 - GASTRO-ESOPHAGEAL REFLUX DISEASE WITHOUT ESOPHAGITIS Status: Chronic Priority: Low Current Visit: No Qualifiers: Esophagitis presence: without esophagitis Qualified Code(s): K21.9 - Gastro -esophageal reflux disease without esophagitis (10) Glaucoma SNOMED Code(s): 95778579 Code(s): H40.9 - UNSPECIFIED GLAUCOMA Status: Chronic Priority: Low Current Visit: No Qualifiers: Glaucoma type: unspecified Laterality: unspecified laterality Qualified Code(s): H40.9 - Unspecified glaucoma (11) HLD (hyperlipidemia) SNOMED Code(s): 17123081 Code(s): E78.5 - HYPERLIPIDEMIA, UNSPECIFIED Status: Chronic Priority: Low Current Visit: No Qualifiers: Hyperlipidemia type: pure hypercholesterolemia Qualified Code(s): E78.00 - Pure hypercholesterolemia, unspecified; E78.0 - Pure hypercholesterolemia (12) Hypothyroidism SNOMED Code(s): 88378794 Code(s): E03.9 - HYPOTHYROIDISM, UNSPECIFIED Status: Chronic Priority: Low Current Visit: No Qualifiers: Hypothyroidism type: acquired Qualified Code(s): E03.9 - Hypothyroidism, unspecified
[2017-02-24] MEDS ORDERED: Piperacillin/Tazobactam 4.5 GM in Sodium Chloride 0.9% 100 ML IV ONE (16:00)
[2017-02-24] MEDS: Levofloxacin/Dextrose 5%-Water 750 MG in Premix Bag 1 BAG IV SCH (20:17)
[2017-02-24] MEDS: Famotidine 20 MG Tab PO SCH (23:46)
[2017-02-24] MEDS: Latanoprost 0.005% Ophth Soln 2.5 ML Bottle EYEBOTH SCH (23:46)
[2017-02-24] MEDS: Piperacillin/Tazobactam 4.5 GM in Sodium Chloride 0.9% 100 ML IV SCH (23:47)
[2017-02-25] MEDS: Insulin Aspart 100 Units/ML 3 ML Pen SUBCUT SCH ×3 (07:50→18:42)
[2017-02-25] MEDS: Piperacillin/Tazobactam 4.5 GM in Sodium Chloride 0.9% 100 ML IV SCH ×3 (07:56→23:48)
[2017-02-25] MEDS: Metoprolol Tartrate 25 MG Tab PO SCH ×3 (07:56→20:39)
[2017-02-25] MEDS: Levothyroxine 100 MCG Tab PO SCH ×2 (07:57→11:18)
[2017-02-25] MEDS: Folic Acid 1 MG Tab PO SCH ×2 (07:57→11:17)
[2017-02-25] MEDS: risperiDONE 0.5 MG Tab PO SCH ×4 (07:57→20:39)
--- NOTE | 2017-02-25 11:07 | PCM.PN ---
- General Info Date of Service: 02/25/17 Functional Status: Reports: Tolerating Diet - Review of Systems General: Reports: No Symptoms HEENT: Reports: No Symptoms Pulmonary: Reports: No Symptoms Cardiovascular: Reports: No Symptoms Gastrointestinal: Reports: No Symptoms Genitourinary: Reports: No Symptoms Musculoskeletal: Reports: No Symptoms Skin: Reports: No Symptoms Neurological: Reports: No Symptoms Psychiatric: Reports: No Symptoms - Patient Data Vitals - Most Recent: Last Vital Signs Temp 36.2 C 02/25/17 07:51 Pulse 90 02/25/17 07:56 Resp 16 02/25/17 07:51 BP 137/83 02/25/17 07:56 Pulse Ox 92 L 02/25/17 07:51 Weight - Most Recent: 57.198 kg I&O - Last 24 Hours: Intake & Output 02/24/17 02/25/17 02/25/17 22:59 06:59 14:59 Intake Total 420 550 210 Balance 420 550 210 Lab Results Last 24 Hours: Laboratory Results - last 24 hr 02/24/17 02/24/17 02/25/17 Range/Units 11:31 17:21 05:55 WBC (3.98-10.04) K/mm3 RBC (3.98-5.22) M/mm3 Hgb (11.2-15.7) gm/L Hct (34.1-44.9) % MCV (79.4-94.8) fl MCH (25.6-32.2) pg MCHC (32.2-35.5) g/dl RDW Std Deviation (36.4-46.3) fL Plt Count (182-369) K/mm3 MPV Neut % (Auto) (34.0-71.1) % Lymph % (Auto) (19.3-51.7) % [place] % (Auto) (4.7-12.5) % Eos % (Auto) (0.7-5.8) Baso % (Auto) (0.1-1.2) % Neut # (Auto) (1.56-6.13) K/mm3 Lymph # (Auto) (1.18-3.74) K/mm3 [place] # (Auto) (0.24-0.36) K/mm3 Eos # (Auto) (0.04-0.36) K/mm3 Baso # (Auto) (0.01-0.08) K/mm3 Manual Slide Review Sodium 147 H (136-145) mEq/L Potassium 3.8 (3.5-5.1) mEq/L Chloride 114 H (98-107) mEq/L Carbon Dioxide 22 (21-32) mEq/L Anion Gap 14.8 (5-15) BUN 54 H (7-18) mg/dL Creatinine 1.2 H (0.55-1.02) mg/dL Est Cr Clr Drug Dosing 24.95 mL/min Estimated GFR (MDRD) 42 (>60) mL/min BUN/Creatinine Ratio 45.0 H (14-18) Glucose 85 (83-115) mg/dL POC Glucose 148 H 130 H (83-110) mg/dL Calcium 7.8 L (8.5-10.1) mg/dL 02/25/17 02/25/17 Range/Units 05:55 06:50 WBC 10.91 H (3.98-10.04) K/mm3 RBC 3.66 L (3.98-5.22) M/mm3 Hgb 10.9 L (11.2-15.7) gm/L Hct 33.0 L (34.1-44.9) % MCV 90.2 (79.4-94.8) fl MCH 29.8 (25.6-32.2) pg MCHC 33.0 (32.2-35.5) g/dl RDW Std Deviation 56.5 H (36.4-46.3) fL Plt Count 50 L (182-369) K/mm3 MPV TNP Neut % (Auto) 87.4 H (34.0-71.1) % Lymph % (Auto) 2.7 L (19.3-51.7) % [place] % (Auto) 8.3 (4.7-12.5) % Eos % (Auto) 0.5 L (0.7-5.8) Baso % (Auto) 0.1 (0.1-1.2) % Neut # (Auto) 9.53 H (1.56-6.13) K/mm3 Lymph # (Auto) 0.29 L (1.18-3.74) K/mm3 [place] # (Auto) 0.91 H (0.24-0.36) K/mm3 Eos # (Auto) 0.06 (0.04-0.36) K/mm3 Baso # (Auto) 0.01 (0.01-0.08) K/mm3 Manual Slide Review Abnormal smear Sodium (136-145) mEq/L Potassium (3.5-5.1) mEq/L Chloride (98-107) mEq/L Carbon Dioxide (21-32) mEq/L Anion Gap (5-15) BUN (7-18) mg/dL Creatinine (0.55-1.02) mg/dL Est Cr Clr Drug Dosing mL/min Estimated GFR (MDRD) (>60) mL/min BUN/Creatinine Ratio (14-18) Glucose (83-115) mg/dL POC Glucose 97 (83-110) mg/dL Calcium (8.5-10.1) mg/dL Med Orders - Current: Current Medications Acetaminophen (Tylenol) 650 mg PO Q4H PRN PRN Reason: Pain (Mild 1-3)/fever Hydrocodone Bitart/Acetaminophen ([place] 325-5 Mg) 1 tab PO Q4H PRN PRN Reason: Pain (moderate 4-6) Albuterol/Ipratropium (Duoneb 3.0-0.5 Mg/3 Ml) 3 ml NEB Q4H PRN PRN Reason: Shortness Of Breath/wheezing Last Admin: 02/21/17 11:10 Dose: 3 ml Bisacodyl (Dulcolax) 5 mg PO DAILY PRN PRN Reason: Constipation Dextrose/Water (Dextrose 50% In Water) 50 ml IVPUSH ASDIRECTED PRN PRN Reason: Hypoglycemia Last Admin: 02/16/17 22:22 Dose: 50 ml Docusate Sodium (Colace) 100 mg PO BID PRN PRN Reason: Constipation Last Admin: 02/23/17 06:48 Dose: 100 mg Famotidine (Pepcid) 20 mg PO BEDTIME [facility] Last Admin: 02/24/17 23:46 Dose: 20 mg Flunisolide (Nasalide Nasal [place]) 0 ml MANNY BID [facility] Last Admin: 02/25/17 07:58 Dose: 1 spray Folic Acid (Folic Acid) 1 mg PO DAILY [facility] Last Admin: 02/25/17 07:57 Dose: 1 mg Hydralazine HCl (Apresoline) 10 mg IVPUSH Q4H PRN PRN Reason: Hypertension Last Admin: 02/19/17 20:41 Dose: 10 mg Hydrocortisone Sodium Succinate (Solu-Cortef) 50 mg IV Q24H [facility] Last Admin: 02/24/17 13:07 Dose: Not Given Hydromorphone HCl (Dilaudid) 0.25 mg IVPUSH Q2H PRN PRN Reason: Pain (severe 7-10) Promethazine HCl 6.25 mg/ (Sodium Chloride) 50.25 mls @ 100 mls/hr IV Q6H PRN PRN Reason: Nausea/Vomiting Levofloxacin/Dextrose 750 mg/ (Premix) 150 mls @ 100 mls/hr IV Q48H [facility] Last Admin: 02/24/17 20:17 Dose: 100 mls/hr Piperacillin Sod/Tazobactam (Sod 4.5 gm/ Sodium Chloride) 100 mls @ 25 mls/hr IV Q8H [facility] Last Admin: 02/25/17 07:56 Dose: 25 mls/hr Insulin Aspart (Novolog) 0 unit SUBCUT TIDMEALS [facility] PRN Reason: Protocol Last Admin: 02/25/17 07:50 Dose: Not Given Latanoprost (Xalatan 0.005% [facility] Sol) 0 ml EYEBOTH BEDTIME [facility] Last Admin: 02/24/17 23:46 Dose: 1 drop Levothyroxine Sodium (Synthroid) 100 mcg PO DAILY [facility] Last Admin: 02/25/17 07:57 Dose: 100 mcg Lorazepam (Ativan) 0.25 mg IV Q6H PRN PRN Reason: Anxiety Metoprolol Tartrate (Lopressor) 5 mg IVPUSH Q4H PRN PRN Reason: Tachycardia Last Admin: 02/18/17 23:55 Dose: 5 mg Metoprolol Tartrate (Lopressor) 25 mg PO BID [facility] Last Admin: 02/25/17 07:56 Dose: 25 mg Ondansetron HCl (Zofran) 4 mg IV Q6H PRN PRN Reason: Nausea/Vomiting Leflunomide 20mg 0 each PO DAILY [facility] Last Admin: 02/24/17 09:47 Dose: Not Given Polyethylene Glycol (Miralax) 17 gm PO DAILY PRN PRN Reason: Constipation Last Admin: 01/04/18 09:57 Dose: 17 gm Risperidone (Risperidal) 0.5 mg PO TID [facility] Last Admin: 02/25/17 07:57 Dose: 0.5 mg Senna/Docusate Sodium (Senna Plus) 1 tab PO BID PRN PRN Reason: Constipation Sodium Chloride (Saline Flush) 10 ml FLUSH ASDIRECTED PRN PRN Reason: Keep Vein Open Last Admin: 02/16/17 13:29 Dose: 10 ml Discontinued Medications Albuterol/Ipratropium (Duoneb 3.0-0.5 Mg/3 Ml) 3 ml NEB ONETIME ONE Stop: 02/16/17 12:59 Last Admin: 02/16/17 13:15 Dose: 3 ml Bisacodyl (Dulcolax) 10 mg RECTAL ONETIME ONE Stop: 02/19/17 18:16 Last Admin: 02/19/17 18:42 Dose: 10 mg Bumetanide (Bumex) 0.5 mg IVPUSH ONETIME ONE Stop: 02/16/17 22:29 Last Admin: 02/16/17 22:53 Dose: 0.5 mg Calcium Carbonate/Glycine (Tums) 1,000 mg PO ONETIME ONE Stop: 02/16/17 22:28 Last Admin: 02/17/17 00:20 Dose: Not Given Calcium Gluconate (Calcium Gluconate) 1 gm IVPUSH ONETIME ONE Stop: 02/16/17 14:46 Last Admin: 02/16/17 15:17 Dose: 1 gm Dextrose/Water (Dextrose 50% In Water) 50 ml IVPUSH ONETIME ONE Stop: 02/16/17 14:45 Last Admin: 02/16/17 15:12 Dose: 50 ml Famotidine (Pepcid) 20 mg IVPUSH BEDTIME [facility] Last Admin: 02/20/17 20:17 Dose: 20 mg Fluticasone Propionate (Flovent Hfa 110 Mcg) 0 gm INH DAILY [facility] Last Admin: 02/21/17 13:11 Dose: Not Given Furosemide (Lasix) 10 mg IVPUSH NOW ONE Stop: 02/18/17 08:49 Last Admin: 02/18/17 10:10 Dose: 10 mg Furosemide (Lasix) 20 mg IVPUSH NOW ONE Stop: 02/23/17 07:01 Last Admin: 02/23/17 06:49 Dose: 20 mg Furosemide (Lasix) 20 mg IVPUSH NOW ONE Stop: 02/23/17 17:01 Last Admin: 02/23/17 18:33 Dose: 20 mg Furosemide (Lasix) 20 mg IVPUSH NOW ONE Stop: 02/23/17 21:01 Last Admin: 02/23/17 23:34 Dose: 20 mg Hydrocortisone Sodium Succinate (Solu-Cortef) 100 mg IVPUSH Q8H [facility] Stop: 02/20/17 07:00 Last Admin: 02/20/17 02:07 Dose: 100 mg Hydrocortisone Sodium Succinate (Solu-Cortef) 50 mg IV Q8H [facility] Last Admin: 02/22/17 10:21 Dose: 50 mg Hydromorphone HCl (Dilaudid) 0.25 mg IVPUSH Q2H PRN PRN Reason: Pain (severe 7-10) Lactated Ringer's (Ringers, Lactated) 1,000 mls @ 999 mls/hr IV .BOLUS ONE Stop: 02/16/17 14:10 Last Admin: 02/16/17 13:29 Dose: 999 mls/hr Sodium Chloride (Normal Saline) 750 mls @ 1,000 mls/hr IV .BOLUS ONE Stop: 02/16/17 14:15 Last Admin: 02/16/17 15:30 Dose: 1,000 mls/hr Levofloxacin/Dextrose 750 mg/ (Premix) 150 mls @ 100 mls/hr IV ONETIME ONE Stop: 02/16/17 15:24 Last Admin: 02/16/17 14:11 Dose: 100 mls/hr Norepinephrine Bitartrate 4 mg (/ Dextrose/Water) 250 mls @ 7.5 mls/hr IV TITRATE [facility]ET[facility]; 2 MCG/MIN PRN Reason: Protocol Last Titration: 02/17/17 07:45 Dose: 0 mcg/min, 0 mls/hr Sodium Chloride (Normal Saline) Confirm Administered Dose 1,000 mls @ as directed .ROUTE .STK-MED ONE Stop: 02/16/17 14:07 Last Admin: 02/16/17 15:30 Dose: Not Given Levofloxacin/Dextrose (Levaquin In D5w 750 Mg/150 Ml) Confirm Administered Dose 150 mls @ as directed IV .STK-MED ONE Stop: 02/16/17 14:08 Last Admin: 02/16/17 15:29 Dose: Not Given Sodium Chloride (Normal Saline) Confirm Administered Dose 1,000 mls @ as directed .ROUTE .STK-MED ONE Stop: 02/16/17 15:28 Last Admin: 02/16/17 15:30 Dose: Not Given Vancomycin HCl 1 gm/Vancomycin HCl 500 mg/ Sodium Chloride 500 mls @ 125 mls/ hr IV Q24H [facility] Stop: 02/16/17 21:59 Last Admin: 02/16/17 18:26 Dose: 125 mls/hr Levofloxacin/Dextrose 500 mg/ (Premix) 100 mls @ 66.667 mls/hr IV Q48H [facility] Last Admin: 02/20/17 22:06 Dose: 66.667 mls/hr Sodium Chloride (Normal Saline) 1,000 mls @ 50 mls/hr IV ASDIRECTED [facility] Dextrose/Sodium Chloride (Dextrose 5%-Normal Saline) 1,000 mls @ 15 mls/hr IV ASDIRECTED [facility] Last Admin: 02/16/17 22:58 Dose: 15 mls/hr Magnesium Sulfate (Magnesium Sulfate 2 Gm In Water 50 Ml) 50 mls @ 50 mls/hr IV ONETIME ONE Stop: 02/17/17 00:14 Last Admin: 02/17/17 00:27 Dose: 50 mls/hr Vancomycin HCl 1 gm/ Sodium (Chloride) 250 mls @ 166.667 mls/hr IV Q48H [facility] Last Admin: 02/20/17 19:53 Dose: 166.667 mls/hr Dextrose/Water (Dextrose 5% In Water) 1,000 mls @ 75 mls/hr IV ASDIRECTED [facility] Last Admin: 02/21/17 17:47 Dose: 75 mls/hr Magnesium Sulfate 2 gm/ Premix 50 mls @ 25 mls/hr IV ONETIME ONE Stop: 02/20/17 18:01 Last Admin: 02/20/17 16:11 Dose: 25 mls/hr Vancomycin HCl 500 mg/ Sodium (Chloride) 250 mls @ 166.667 mls/hr IV ONETIME ONE Stop: 02/20/17 22:29 Last Admin: 02/20/17 22:04 Dose: 166.667 mls/hr Vancomycin HCl 1 gm/Vancomycin HCl 500 mg/ Sodium Chloride 500 mls @ 333 mls/ hr IV Q48H [facility] Sodium Chloride (Normal Saline) 250 mls @ 25 mls/hr IV ASDIRECTED [facility] Last Admin: 02/23/17 15:42 Dose: 25 mls/hr Piperacillin Sod/Tazobactam (Sod 4.5 gm/ Sodium Chloride) 100 mls @ 200 mls/hr IV ONETIME ONE Stop: 02/24/17 16:29 Last Admin: 02/24/17 17:23 Dose: 200 mls/hr Insulin Aspart (Novolog) 0 unit SUBCUT Q6HR [facility] PRN Reason: Protocol Last Admin: 02/20/17 17:59 Dose: 1 units Insulin Human Regular (Humulin R) 10 unit SUBCUT BIDAC [facility] PRN Reason: Protocol Last Admin: 02/16/17 15:10 Dose: 10 unit Magnesium Sulfate (Pharmacy To Dose - Magnesium Replacement) 1 dose .XX ASDIRECTED [facility] Norepinephrine Bitartrate (Levophed) Confirm Administered Dose 4 mg .ROUTE .STK- MED ONE Stop: 02/17/17 04:45 Last Admin: 02/17/17 05:05 Dose: Not Given Pantoprazole Sodium (Protonix Iv) 40 mg IVPUSH ONETIME ONE Stop: 02/16/17 18:12 Last Admin: 02/16/17 19:03 Dose: 40 mg Potassium Chloride (Pharmacy To Dose - Potassium Replacement) 1 dose .XX ASDIRECTED [facility] Potassium Chloride (Klor-Con M20) 40 meq PO ONETIME ONE Stop: 02/23/17 13:55 Last Admin: 02/23/17 14:25 Dose: 40 meq Sodium Polystyrene Sulfonate (Kayexalate) 45 gm RECTAL NOW ONE Stop: 02/16/17 18:22 Last Admin: 02/16/17 18:52 Dose: 45 gm Sodium Polystyrene Sulfonate (Kayexalate) 15 gm PO ONETIME ONE Stop: 02/17/17 16:04 Last Admin: 02/17/17 16:38 Dose: 15 gm Vancomycin HCl (Pharmacy To Dose - Vancomycin) 1 dose .XX ASDIRECTED [facility] - Exam Quality Assessment: DVT Prophylaxis General: Alert, Oriented, Cooperative HEENT: Pupils Equal, Pupils Reactive, EOMI Neck: Supple, Trachea Midline Lungs: Normal Respiratory Effort Cardiovascular: Regular Rate GI/Abdominal Exam: Normal Bowel Sounds, Soft, Non-Tender, No Organomegaly, No Distention (Female) Exam: Deferred Back Exam: Normal Inspection Extremities: Normal Inspection Skin: Warm Neurological: No New Focal Deficit Psy/Mental Status: Alert - Problem List & Annotations (1) Anemia SNOMED Code(s): 346401798 Code(s): D64.9 - ANEMIA, UNSPECIFIED Status: Acute Priority: High Current Visit: Yes Qualifiers: Anemia type: other cause Other causes of anemia: other cause, not classified Qualified Code(s): D64.89 - Other specified anemias (2) Heart failure SNOMED Code(s): 76536209 Code(s): I50.9 - HEART FAILURE, UNSPECIFIED Status: Acute Priority: Medium Current Visit: Yes Qualifiers: Heart failure type: unspecified heart failure type Heart failure chronicity : acute on chronic Qualified Code(s): I50.9 - Heart failure, unspecified (3) Pneumonia SNOMED Code(s): 995353724 Code(s): J18.9 - PNEUMONIA, UNSPECIFIED ORGANISM Status: Acute Priority: High Current Visit: Yes Qualifiers: Pneumonia type: due to unspecified organism Laterality: right Lung location: middle lobe of lung Qualified Code(s): J18.1 - Lobar pneumonia, unspecified organism (4) Renal failure SNOMED Code(s): 92806377 Code(s): N19 - UNSPECIFIED KIDNEY FAILURE Status: Acute Priority: High Current Visit: Yes Qualifiers: Renal failure chronicity: acute Acute renal failure type: unspecified Qualified Code(s): N17.9 - Acute kidney failure, unspecified (5) Hyperkalemia SNOMED Code(s): 75407823 Code(s): E87.5 - HYPERKALEMIA Status: Resolved Priority: High Current Visit: Yes (6) Hypotension SNOMED Code(s): 25165182 Code(s): I95.9 - HYPOTENSION, UNSPECIFIED Status: Resolved Priority: High Current Visit: Yes Qualifiers: Hypotension type: unspecified hypotension type Qualified Code(s): I95.9 - Hypotension, unspecified (7) Septic shock SNOMED Code(s): 11627373 Code(s): A41.9 - SEPSIS, UNSPECIFIED ORGANISM; R65.21 - SEVERE SEPSIS WITH SEPTIC SHOCK Status: Resolved Priority: High Current Visit: Yes (8) CAD (coronary artery disease) SNOMED Code(s): 23838573 Code(s): I25.10 - ATHSCL HEART DISEASE OF [place] CORONARY ARTERY W/O ANG PCTRS Status: Chronic Priority: Low Current Visit: No Qualifiers: Coronary Disease-Associated Artery/Lesion type: [place] artery [place] vs. transplanted heart: [place] heart Associated angina: angina presence unspecified Qualified Code(s): I25.10 - Atherosclerotic heart disease of [place] coronary artery without angina pectoris (9) GERD (gastroesophageal reflux disease) SNOMED Code(s): 199021281 Code(s): K21.9 - GASTRO-ESOPHAGEAL REFLUX DISEASE WITHOUT ESOPHAGITIS Status: Chronic Priority: Low Current Visit: No Qualifiers: Esophagitis presence: without esophagitis Qualified Code(s): K21.9 - Gastro -esophageal reflux disease without esophagitis (10) Glaucoma SNOMED Code(s): 27479674 Code(s): H40.9 - UNSPECIFIED GLAUCOMA Status: Chronic Priority: Low Current Visit: No Qualifiers: Glaucoma type: unspecified Laterality: unspecified laterality Qualified Code(s): H40.9 - Unspecified glaucoma (11) HLD (hyperlipidemia) SNOMED Code(s): 64149910 Code(s): E78.5 - HYPERLIPIDEMIA, UNSPECIFIED Status: Chronic Priority: Low Current Visit: No Qualifiers: Hyperlipidemia type: pure hypercholesterolemia Qualified Code(s): E78.00 - Pure hypercholesterolemia, unspecified; E78.0 - Pure hypercholesterolemia (12) Hypothyroidism SNOMED Code(s): 96215079 Code(s): E03.9 - HYPOTHYROIDISM, UNSPECIFIED Status: Chronic Priority: Low Current Visit: No Qualifiers: Hypothyroidism type: acquired Qualified Code(s): E03.9 - Hypothyroidism, unspecified - Problem List Review Problem List Initiated/Reviewed/Updated: Yes - Plan Plan:: I/P: Acute: Pneumonia -Increasing SOB reported by [place] and family -Risk factors: Confusion from dementia (? aspiration), Hx/o lung ca with resection, Lives in specialty SNF -CXR in ED shows right middle lobe pneumonia -RT to assess and treat/IS -f/u cxr 03/21/16 - Parenchymal density in right upper lung likely persistant pneumonia -Oxygen as needed - titrate -Continue IV Levaquin/Vancomycin for pharmacy to dose - Discontinued -F/u CXR (1/4/18) - Continued consolidation is seen, Increased density but slightly smaller in size -Slightly elevated WBC today, although on steroid -Will restart Levaquin and add Zosyn. Renal failure -Acute on chronic -Unsure of baseline - obtain old records -BUN 111-->69-->64-->72-->69, Creatinine 3.6-->1.3-->1.2-->1.3-->1.2, eGFR 12 -->39-->42-->39-->34 -Pharmacy to renally dose medications -Hold nephrotoxic drugs -Fluids - stopped for now -Renal ultrasound to rule out obstructive uropathy- chronic renal disease; atrophied bilateral kidneys -Monitor I&O; wagner in place - discontinued -Balance need to diurese with worsening renal failure Heart failure -Acute on chronic -Unsure of baseline - obtain old records -Pro-BNP 2506-->7291-->1235 -Echo completed - EF 65-75 -Rales noted on lung sounds - hold fluids -Diurese as needed -Monitor Anemia, -Acute on chronic -Unsure of baseline - obtain old records -Hgb 7.9--> 11.7-->7.8-->8.4-->7.8, Hct 25.3-->36.7-->24.4, Heme + stool in ED, INR 1.15, APTT 43 -No reported hematemesis, melena, hematochezia. -S/p 2 units PRBCs transfusion, 2 more units given yesterday -Monitor H&H -Type and cross -Occult stool - positive -Surgical consult ordered Thrombocytopenia -Plt count 119--> 120--> 119--> 87--> 52--> 43-->40 -Total bilirubin 1.1, haptoglobin <10, PT/INR 12.6/1.15, APTT 31, LDH 687 -Will need outpatient Hematology consult -Continue to investigate cause Resolved: Septic shock -2/2 pneumonia -Hypotensive -Rales in right lower lobe -Hypothermic on arrival -89.6 F rectally -Vero hugger in place -WBC 14.93 -CRP 4.7 -UA negative -INR 1.15 -APTT 43 -Blood cultures - pending -Serum cortisol level - ordered -procalcitonin - ordered -1700 ml fluid bolus in ED -Levaquin 750 given in ED - continue -Vancomycin - pharmacy to dose -Solu-cortif Q6 -Fluids as ordered -NPO -Critical patient - strict I&O -Wagner in place Anion gap metabolic acidosis -2/2 sepsis -Anion gap 24.6 --> 22.6 -Carbon Dioxide 14-- 15 -Fluids as ordered Hyperkalemia, Improved -Potassium 6.6 in ED--> now 5.6 -1gm calcium gluconate given in ED -10 unit humulin given in ED -1700ml fluid bolus given in ED -45gm Kayexalate rectally last night; oral dose 15 mg po x1 now -Given 40mg lasix by EMS crew -Hx/o hypokalemia -Avoid lasix due to poor renal function Hypotension -2/2 above -BP 61/45 on arrival -HR 60 -Fluid bolus given in ED -Fluids as ordered -Norepinephrine drip - titrate per protocol Chronic: Hypothyroidism HLD Hypokalemia Dementia w/o behavioral disturbance Mild cognitive impairment Insomnia Glaucoma CAD GERD RA Lower back pain OA Visual hallucinations Hx/o TIA Hx/o AL Hx/o lung neoplasm with lobectomy Plan: She is slowly improving clinically Continue current treatment Continue PT/OT/Spiritual care Swallow Eval Consult - Return to regular diet Routine AM labs GI Prophylaxis protonix DVT/PE prophylaxis: TEDS and ambulation as tolerated CM/SW for discharge planning Other orders as indicated above Will need outpatient Hematology consult due to low platelet levels and general surgery/GI consult for GI bleed. Code status: DNR. Her PCP is Dr. Walden at [facility]. She recently transferred care from Dr. Grullon in [place]. LOS>96 hours with severe infection/sepsis; Likely discharge 02/28/16 to [place]
[2017-02-25] MEDS: Hydrocortisone Sodium Succinate 100 MG/2 ML SDV IV SCH (13:12)
[2017-02-25] MEDS: Famotidine 20 MG Tab PO SCH (20:39)
[2017-02-25] MEDS: Latanoprost 0.005% Ophth Soln 2.5 ML Bottle EYEBOTH SCH (20:42)
[2017-02-25] MEDS: hydrALAZINE 20 MG/ML SDV IVPUSH PRN (23:48)
[2017-02-26] MEDS: Insulin Aspart 100 Units/ML 3 ML Pen SUBCUT SCH ×3 (07:58→17:54)
[2017-02-26] MEDS: Levothyroxine 100 MCG Tab PO SCH (09:08)
[2017-02-26] MEDS: Folic Acid 1 MG Tab PO SCH (09:08)
[2017-02-26] MEDS: Piperacillin/Tazobactam 4.5 GM in Sodium Chloride 0.9% 100 ML IV SCH ×2 (09:08→15:33)
[2017-02-26] MEDS: Metoprolol Tartrate 25 MG Tab PO SCH ×2 (09:08→22:09)
[2017-02-26] MEDS: risperiDONE 0.5 MG Tab PO SCH ×3 (09:09→22:09)
--- NOTE | 2017-02-26 12:15 | PCM.PN ---
- General Info Date of Service: 02/26/17 Functional Status: Reports: Pain Controlled, Tolerating Diet - Review of Systems General: Reports: Weakness HEENT: Reports: No Symptoms Pulmonary: Reports: No Symptoms Cardiovascular: Reports: No Symptoms Gastrointestinal: Reports: No Symptoms Genitourinary: Reports: No Symptoms Musculoskeletal: Reports: No Symptoms Neurological: Reports: No Symptoms Psychiatric: Reports: No Symptoms - Patient Data Vitals - Most Recent: Last Vital Signs Temp 35.7 C 02/26/17 07:41 Pulse 70 02/26/17 09:08 Resp 15 02/26/17 07:41 BP 118/75 02/26/17 09:08 Pulse Ox 94 L 02/26/17 07:44 Weight - Most Recent: 57.198 kg I&O - Last 24 Hours: Intake & Output 02/25/17 02/26/17 02/26/17 22:59 06:59 14:59 Intake Total 450 600 100 Output Total 500 Balance 450 100 100 Lab Results Last 24 Hours: Laboratory Results - last 24 hr 02/25/17 02/26/17 02/26/17 Range/Units 17:33 06:30 11:30 POC Glucose 114 H 107 131 H (83-110) mg/dL Med Orders - Current: Current Medications Acetaminophen (Tylenol) 650 mg PO Q4H PRN PRN Reason: Pain (Mild 1-3)/fever Hydrocodone Bitart/Acetaminophen ([place] 325-5 Mg) 1 tab PO Q4H PRN PRN Reason: Pain (moderate 4-6) Albuterol/Ipratropium (Duoneb 3.0-0.5 Mg/3 Ml) 3 ml NEB Q4H PRN PRN Reason: Shortness Of Breath/wheezing Last Admin: 02/21/17 11:10 Dose: 3 ml Bisacodyl (Dulcolax) 5 mg PO DAILY PRN PRN Reason: Constipation Dextrose/Water (Dextrose 50% In Water) 50 ml IVPUSH ASDIRECTED PRN PRN Reason: Hypoglycemia Last Admin: 02/16/17 22:22 Dose: 50 ml Docusate Sodium (Colace) 100 mg PO BID PRN PRN Reason: Constipation Last Admin: 02/23/17 06:48 Dose: 100 mg Famotidine (Pepcid) 20 mg PO BEDTIME DEMETRI Last Admin: 02/25/17 20:39 Dose: 20 mg Flunisolide (Nasalide Nasal [place]) 0 ml MANNY BID [facility] Last Admin: 02/26/17 09:09 Dose: 2 spray Folic Acid (Folic Acid) 1 mg PO DAILY [facility] Last Admin: 02/26/17 09:08 Dose: 1 mg Hydralazine HCl (Apresoline) 10 mg IVPUSH Q4H PRN PRN Reason: Hypertension Last Admin: 02/25/17 23:48 Dose: 10 mg Hydrocortisone Sodium Succinate (Solu-Cortef) 50 mg IV Q24H [facility] Last Admin: 02/25/17 13:12 Dose: 50 mg Hydromorphone HCl (Dilaudid) 0.25 mg IVPUSH Q2H PRN PRN Reason: Pain (severe 7-10) Promethazine HCl 6.25 mg/ (Sodium Chloride) 50.25 mls @ 100 mls/hr IV Q6H PRN PRN Reason: Nausea/Vomiting Levofloxacin/Dextrose 750 mg/ (Premix) 150 mls @ 100 mls/hr IV Q48H [facility] Last Admin: 02/24/17 20:17 Dose: 100 mls/hr Piperacillin Sod/Tazobactam (Sod 4.5 gm/ Sodium Chloride) 100 mls @ 25 mls/hr IV Q8H [facility] Last Admin: 02/26/17 09:08 Dose: 25 mls/hr Insulin Aspart (Novolog) 0 unit SUBCUT TIDMEALS [facility] PRN Reason: Protocol Last Admin: 02/26/17 07:58 Dose: Not Given Latanoprost (Xalatan 0.005% [facility] Sol[facility]) 0 ml EYEBOTH BEDTIME [facility] Last Admin: 02/25/17 20:42 Dose: 1 drop Levothyroxine Sodium (Synthroid) 100 mcg PO DAILY [facility] Last Admin: 02/26/17 09:08 Dose: 100 mcg Lorazepam (Ativan) 0.25 mg IV Q6H PRN PRN Reason: Anxiety Metoprolol Tartrate (Lopressor) 5 mg IVPUSH Q4H PRN PRN Reason: Tachycardia Last Admin: 02/18/17 23:55 Dose: 5 mg Metoprolol Tartrate (Lopressor) 25 mg PO BID [facility] Last Admin: 02/26/17 09:08 Dose: 25 mg Ondansetron HCl (Zofran) 4 mg IV Q6H PRN PRN Reason: Nausea/Vomiting Leflunomide 20mg 0 each PO DAILY [facility] Last Admin: 02/26/17 09:09 Dose: Not Given Polyethylene Glycol (Miralax) 17 gm PO DAILY PRN PRN Reason: Constipation Last Admin: 02/23/17 09:57 Dose: 17 gm Risperidone (Risperidal) 0.5 mg PO TID [facility] Last Admin: 02/26/17 09:09 Dose: 0.5 mg Senna/Docusate Sodium (Senna Plus) 1 tab PO BID PRN PRN Reason: Constipation Sodium Chloride (Saline Flush) 10 ml FLUSH ASDIRECTED PRN PRN Reason: Keep Vein Open Last Admin: 02/16/17 13:29 Dose: 10 ml Discontinued Medications Albuterol/Ipratropium (Duoneb 3.0-0.5 Mg/3 Ml) 3 ml NEB ONETIME ONE Stop: 02/16/17 12:59 Last Admin: 02/16/17 13:15 Dose: 3 ml Bisacodyl (Dulcolax) 10 mg RECTAL ONETIME ONE Stop: 02/19/17 18:16 Last Admin: 02/19/17 18:42 Dose: 10 mg Bumetanide (Bumex) 0.5 mg IVPUSH ONETIME ONE Stop: 02/16/17 22:29 Last Admin: 02/16/17 22:53 Dose: 0.5 mg Calcium Carbonate/Glycine (Tums) 1,000 mg PO ONETIME ONE Stop: 02/16/17 22:28 Last Admin: 02/17/17 00:20 Dose: Not Given Calcium Gluconate (Calcium Gluconate) 1 gm IVPUSH ONETIME ONE Stop: 02/16/17 14:46 Last Admin: 02/16/17 15:17 Dose: 1 gm Dextrose/Water (Dextrose 50% In Water) 50 ml IVPUSH ONETIME ONE Stop: 02/16/17 14:45 Last Admin: 02/16/17 15:12 Dose: 50 ml Famotidine (Pepcid) 20 mg IVPUSH BEDTIME [facility] Last Admin: 02/20/17 20:17 Dose: 20 mg Fluticasone Propionate (Flovent Hfa 110 Mcg) 0 gm INH DAILY [facility] Last Admin: 02/21/17 13:11 Dose: Not Given Furosemide (Lasix) 10 mg IVPUSH NOW ONE Stop: 02/18/17 08:49 Last Admin: 02/18/17 10:10 Dose: 10 mg Furosemide (Lasix) 20 mg IVPUSH NOW ONE Stop: 02/23/17 07:01 Last Admin: 02/23/17 06:49 Dose: 20 mg Furosemide (Lasix) 20 mg IVPUSH NOW ONE Stop: 02/23/17 17:01 Last Admin: 02/23/17 18:33 Dose: 20 mg Furosemide (Lasix) 20 mg IVPUSH NOW ONE Stop: 02/23/17 21:01 Last Admin: 02/23/17 23:34 Dose: 20 mg Hydrocortisone Sodium Succinate (Solu-Cortef) 100 mg IVPUSH Q8H [facility]ET[facility] Stop: 02/20/17 07:00 Last Admin: 02/20/17 02:07 Dose: 100 mg Hydrocortisone Sodium Succinate (Solu-Cortef) 50 mg IV Q8H DEMET[facility] Last Admin: 02/22/17 10:21 Dose: 50 mg Hydromorphone HCl (Dilaudid) 0.25 mg IVPUSH Q2H PRN PRN Reason: Pain (severe 7-10) Lactated Ringer's (Ringers, Lactated) 1,000 mls @ 999 mls/hr IV .BOLUS ONE Stop: 02/16/17 14:10 Last Admin: 02/16/17 13:29 Dose: 999 mls/hr Sodium Chloride (Normal Saline) 750 mls @ 1,000 mls/hr IV .BOLUS ONE Stop: 02/16/17 14:15 Last Admin: 02/16/17 15:30 Dose: 1,000 mls/hr Levofloxacin/Dextrose 750 mg/ (Premix) 150 mls @ 100 mls/hr IV ONETIME ONE Stop: 02/16/17 15:24 Last Admin: 02/16/17 14:11 Dose: 100 mls/hr Norepinephrine Bitartrate 4 mg (/ Dextrose/Water) 250 mls @ 7.5 mls/hr IV TITRATE DEMETRI; 2 MCG/MIN PRN Reason: Protocol Last Titration: 02/17/17 07:45 Dose: 0 mcg/min, 0 mls/hr Sodium Chloride (Normal Saline) Confirm Administered Dose 1,000 mls @ as directed .ROUTE .STK-MED ONE Stop: 02/16/17 14:07 Last Admin: 02/16/17 15:30 Dose: Not Given Levofloxacin/Dextrose (Levaquin In D5w 750 Mg/150 Ml) Confirm Administered Dose 150 mls @ as directed IV .K-MED ONE Stop: 02/16/17 14:08 Last Admin: 02/16/17 15:29 Dose: Not Given Sodium Chloride (Normal Saline) Confirm Administered Dose 1,000 mls @ as directed .ROUTE .[facility] ONE Stop: 02/16/17 15:28 Last Admin: 02/16/17 15:30 Dose: Not Given Vancomycin HCl 1 gm/Vancomycin HCl 500 mg/ Sodium Chloride 500 mls @ 125 mls/ hr IV Q24H [facility] Stop: 02/16/17 21:59 Last Admin: 02/16/17 18:26 Dose: 125 mls/hr Levofloxacin/Dextrose 500 mg/ (Premix) 100 mls @ 66.667 mls/hr IV Q48H [facility] Last Admin: 02/20/17 22:06 Dose: 66.667 mls/hr Sodium Chloride (Normal Saline) 1,000 mls @ 50 mls/hr IV ASDIRECTED [facility] Dextrose/Sodium Chloride (Dextrose 5%-Normal Saline) 1,000 mls @ 15 mls/hr IV ASDIRECTED [facility] Last Admin: 02/16/17 22:58 Dose: 15 mls/hr Magnesium Sulfate (Magnesium Sulfate 2 Gm In Water 50 Ml) 50 mls @ 50 mls/hr IV ONETIME ONE Stop: 02/17/17 00:14 Last Admin: 02/17/17 00:27 Dose: 50 mls/hr Vancomycin HCl 1 gm/ Sodium (Chloride) 250 mls @ 166.667 mls/hr IV Q48H [facility] Last Admin: 02/20/17 19:53 Dose: 166.667 mls/hr Dextrose/Water (Dextrose 5% In Water) 1,000 mls @ 75 mls/hr IV ASDIRECTED [facility] Last Admin: 02/21/17 17:47 Dose: 75 mls/hr Magnesium Sulfate 2 gm/ Premix 50 mls @ 25 mls/hr IV ONETIME ONE Stop: 02/20/17 18:01 Last Admin: 02/20/17 16:11 Dose: 25 mls/hr Vancomycin HCl 500 mg/ Sodium (Chloride) 250 mls @ 166.667 mls/hr IV ONETIME ONE Stop: 02/20/17 22:29 Last Admin: 02/20/17 22:04 Dose: 166.667 mls/hr Vancomycin HCl 1 gm/Vancomycin HCl 500 mg/ Sodium Chloride 500 mls @ 333 mls/ hr IV Q48H [facility] Sodium Chloride (Normal Saline) 250 mls @ 25 mls/hr IV ASDIRECTED [facility] Last Admin: 02/23/17 15:42 Dose: 25 mls/hr Piperacillin Sod/Tazobactam (Sod 4.5 gm/ Sodium Chloride) 100 mls @ 200 mls/hr IV ONETIME ONE Stop: 02/24/17 16:29 Last Admin: 02/24/17 17:23 Dose: 200 mls/hr Insulin Aspart (Novolog) 0 unit SUBCUT Q6HR [facility] PRN Reason: Protocol Last Admin: 02/20/17 17:59 Dose: 1 units Insulin Human Regular (Humulin R) 10 unit SUBCUT BIDAC [facility] PRN Reason: Protocol Last Admin: 02/16/17 15:10 Dose: 10 unit Magnesium Sulfate (Pharmacy To Dose - Magnesium Replacement) 1 dose .XX ASDIRECTED [facility] Norepinephrine Bitartrate (Levophed) Confirm Administered Dose 4 mg .ROUTE .STK- MED ONE Stop: 02/17/17 04:45 Last Admin: 02/17/17 05:05 Dose: Not Given Pantoprazole Sodium (Protonix Iv) 40 mg IVPUSH ONETIME ONE Stop: 02/16/17 18:12 Last Admin: 02/16/17 19:03 Dose: 40 mg Potassium Chloride (Pharmacy To Dose - Potassium Replacement) 1 dose .XX ASDIRECTED [facility] Potassium Chloride (Klor-Con M20) 40 meq PO ONETIME ONE Stop: 02/23/17 13:55 Last Admin: 02/23/17 14:25 Dose: 40 meq Sodium Polystyrene Sulfonate (Kayexalate) 45 gm RECTAL NOW ONE Stop: 02/16/17 18:22 Last Admin: 02/16/17 18:52 Dose: 45 gm Sodium Polystyrene Sulfonate (Kayexalate) 15 gm PO ONETIME ONE Stop: 02/17/17 16:04 Last Admin: 02/17/17 16:38 Dose: 15 gm Vancomycin HCl (Pharmacy To Dose - Vancomycin) 1 dose .XX ASDIRECTED DEMETRI - Exam Quality Assessment: DVT Prophylaxis (SCD) General: Alert, Oriented, No Acute Distress HEENT: Pupils Equal, Pupils Reactive, EOMI Neck: Trachea Midline Lungs: Normal Respiratory Effort, Decreased Breath Sounds Cardiovascular: Regular Rate GI/Abdominal Exam: Normal Bowel Sounds, Soft, Non-Tender, No Organomegaly, No Distention (Female) Exam: Deferred Back Exam: Normal Inspection Extremities: Normal Inspection Skin: Warm Neurological: No New Focal Deficit Psy/Mental Status: Alert - Problem List & Annotations (1) Anemia SNOMED Code(s): 626280155 Code(s): D64.9 - ANEMIA, UNSPECIFIED Status: Acute Priority: High Current Visit: Yes Qualifiers: Anemia type: other cause Other causes of anemia: other cause, not classified Qualified Code(s): D64.89 - Other specified anemias (2) Heart failure SNOMED Code(s): 08565820 Code(s): I50.9 - HEART FAILURE, UNSPECIFIED Status: Acute Priority: Medium Current Visit: Yes Qualifiers: Heart failure type: unspecified heart failure type Heart failure chronicity : acute on chronic Qualified Code(s): I50.9 - Heart failure, unspecified (3) Pneumonia SNOMED Code(s): 896494294 Code(s): J18.9 - PNEUMONIA, UNSPECIFIED ORGANISM Status: Acute Priority: High Current Visit: Yes Qualifiers: Pneumonia type: due to unspecified organism Laterality: right Lung location: middle lobe of lung Qualified Code(s): J18.1 - Lobar pneumonia, unspecified organism (4) Renal failure SNOMED Code(s): 52071911 Code(s): N19 - UNSPECIFIED KIDNEY FAILURE Status: Acute Priority: High Current Visit: Yes Qualifiers: Renal failure chronicity: acute Acute renal failure type: unspecified Qualified Code(s): N17.9 - Acute kidney failure, unspecified (5) Hyperkalemia SNOMED Code(s): 95648629 Code(s): E87.5 - HYPERKALEMIA Status: Resolved Priority: High Current Visit: Yes (6) Hypotension SNOMED Code(s): 95271134 Code(s): I95.9 - HYPOTENSION, UNSPECIFIED Status: Resolved Priority: High Current Visit: Yes Qualifiers: Hypotension type: unspecified hypotension type Qualified Code(s): I95.9 - Hypotension, unspecified (7) Septic shock SNOMED Code(s): 11868192 Code(s): A41.9 - SEPSIS, UNSPECIFIED ORGANISM; R65.21 - SEVERE SEPSIS WITH SEPTIC SHOCK Status: Resolved Priority: High Current Visit: Yes (8) CAD (coronary artery disease) SNOMED Code(s): 26089341 Code(s): I25.10 - ATHSCL HEART DISEASE OF [place] CORONARY ARTERY W/O ANG PCTRS Status: Chronic Priority: Low Current Visit: No Qualifiers: Coronary Disease-Associated Artery/Lesion type: [place] artery [place] vs. transplanted heart: [place] heart Associated angina: angina presence unspecified Qualified Code(s): I25.10 - Atherosclerotic heart disease of [place] coronary artery without angina pectoris (9) GERD (gastroesophageal reflux disease) SNOMED Code(s): 790616440 Code(s): K21.9 - GASTRO-ESOPHAGEAL REFLUX DISEASE WITHOUT ESOPHAGITIS Status: Chronic Priority: Low Current Visit: No Qualifiers: Esophagitis presence: without esophagitis Qualified Code(s): K21.9 - Gastro -esophageal reflux disease without esophagitis (10) Glaucoma SNOMED Code(s): 04171820 Code(s): H40.9 - UNSPECIFIED GLAUCOMA Status: Chronic Priority: Low Current Visit: No Qualifiers: Glaucoma type: unspecified Laterality: unspecified laterality Qualified Code(s): H40.9 - Unspecified glaucoma (11) HLD (hyperlipidemia) SNOMED Code(s): 89725457 Code(s): E78.5 - HYPERLIPIDEMIA, UNSPECIFIED Status: Chronic Priority: Low Current Visit: No Qualifiers: Hyperlipidemia type: pure hypercholesterolemia Qualified Code(s): E78.00 - Pure hypercholesterolemia, unspecified; E78.0 - Pure hypercholesterolemia (12) Hypothyroidism SNOMED Code(s): 21999833 Code(s): E03.9 - HYPOTHYROIDISM, UNSPECIFIED Status: Chronic Priority: Low Current Visit: No Qualifiers: Hypothyroidism type: acquired Qualified Code(s): E03.9 - Hypothyroidism, unspecified - Problem List Review Problem List Initiated/Reviewed/Updated: Yes - Plan Plan:: I/P: Acute: Pneumonia -Increasing SOB reported by [place] and family -Risk factors: Confusion from dementia (? aspiration), Hx/o lung ca with resection, Lives in specialty SNF -CXR in ED shows right middle lobe pneumonia -RT to assess and treat/IS -f/u cxr 03/21/16 - Parenchymal density in right upper lung likely persistant pneumonia -Oxygen as needed - titrate -Continue IV Levaquin/Vancomycin for pharmacy to dose - Discontinued -F/u CXR (02/23/17) - Continued consolidation is seen, Increased density but slightly smaller in size -Slightly elevated WBC today, although on steroid -Will restart Levaquin and add Zosyn. Renal failure -Acute on chronic -Unsure of baseline - obtain old records -BUN 111-->69-->64-->72-->69, Creatinine 3.6-->1.3-->1.2-->1.3-->1.2, eGFR 12 -->39-->42-->39-->34 -Pharmacy to renally dose medications -Hold nephrotoxic drugs -Fluids - stopped for now -Renal ultrasound to rule out obstructive uropathy- chronic renal disease; atrophied bilateral kidneys -Monitor I&O; wagner in place - discontinued -Balance need to diurese with worsening renal failure Heart failure -Acute on chronic -Unsure of baseline - obtain old records -Pro-BNP 2506-->7291-->1235 -Echo completed - EF 65-75 -Rales noted on lung sounds - hold fluids -Diurese as needed -Monitor Anemia, -Acute on chronic -Unsure of baseline - obtain old records -Hgb 7.9--> 11.7-->7.8-->8.4-->7.8, Hct 25.3-->36.7-->24.4, Heme + stool in ED, INR 1.15, APTT 43 -No reported hematemesis, melena, hematochezia. -S/p 2 units PRBCs transfusion, 2 more units given yesterday -Monitor H&H -Type and cross -Occult stool - positive -Surgical consult ordered Thrombocytopenia -Plt count 119--> 120--> 119--> 87--> 52--> 43-->40 -Total bilirubin 1.1, haptoglobin <10, PT/INR 12.6/1.15, APTT 31, LDH 687 -Will need outpatient Hematology consult -Continue to investigate cause Resolved: Septic shock--resolved -2/2 pneumonia Hyperkalemia, Improved Hypotension--resolved Thrombycytopenia--medication cf BM; MDS? Chronic: Hypothyroidism HLD Hypokalemia Dementia w/o behavioral disturbance Mild cognitive impairment Insomnia Glaucoma CAD GERD RA Lower back pain OA Visual hallucinations Hx/o TIA Hx/o AL Hx/o lung neoplasm with lobectomy Plan: She is slowly improving clinically Continue current treatment Continue PT/OT/Spiritual care Swallow Eval Consult - Return to regular diet Routine AM labs GI Prophylaxis protonix DVT/PE prophylaxis: TEDS and ambulation as tolerated CM/SW for discharge planning Other orders as indicated above Will need outpatient Hematology consult due to low platelet levels and general surgery/GI consult for GI bleed. Code status: DNR. Her PCP is Dr. Walden at [facility]. She recently transferred care from Dr. Grullon in [place]. LOS>96 hours with severe infection/sepsis; Likely discharge 02/28/16 to [place]
[2017-02-26] MEDS: Hydrocortisone Sodium Succinate 100 MG/2 ML SDV IV SCH (12:59)
[2017-02-26] MEDS: Levofloxacin/Dextrose 5%-Water 750 MG in Premix Bag 1 BAG IV SCH ×2 (15:32→16:23)
[2017-02-26] MEDS: Famotidine 20 MG Tab PO SCH (22:09)
[2017-02-26] MEDS: Latanoprost 0.005% Ophth Soln 2.5 ML Bottle EYEBOTH SCH (22:09)
[2017-02-27] MEDS: Piperacillin/Tazobactam 4.5 GM in Sodium Chloride 0.9% 100 ML IV SCH (00:16)
--- NOTE | 2017-02-27 06:51 | PCM.DCSUM1 ---
Discharge Summary - Hospital Course Free Text/Narrative:: Johnson Lyles is an 86 yo female who presented to our ED today on 02/16/17 via [facility] from [facility] for shortness of breath. Patient has AMS and is unable to provide any reliable history in the ED, but she denies any pain. She reportedly grimaces and expresses pain with movement. She does have a prior hx/o RA. [facility] reports increasing difficulty with breathing since this AM with 2+ pitting edema and crackles bilaterally in the lung bases. No fever, vomiting, diarrhea. 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 [facility] reports a temperature of 93. In the ED temp was found to be 89.6 Fahrenheit. Pulse 60. Respirations 20. BP 61/45. Pulse ox 93. Labs were obtained: WC is 14.93. Hemoglobin is low at 7.9. Hematocrit 25.3. MCV is slightly elevated 95.8. Platelets are low at 119 ,000. Neutrophils are elevated at 90%. Band neutrophils are 1%. There is 1+ poikilocytosis, microcytosis, macrocytosis, and ovalocytes. 2+ anisocytosis is noted. PT is 12.6. INR is elevated at 1.15. APTT is high at 43. Sodium is normal at 141. Potassium was very high at 6.6. Chloride is 109. Carbon dioxide is 14. Anion gap is very high at 24.6. BUN is 111. Creatinine is 3.6. EGFR is 12. Glucose 103. Calcium 7.6. Total bilirubin 0.3. Liver enzymes good with AST at 21, ALT at 26, alkaline phosphatase and 92. Troponin is negative at less than 0.017. CRP is high at 4.7. Protein is low at 5.1. Albumin is low at 2.3. Pro-BNP is 2506. She was typed and screened with O- blood type and negative gel antibody screen. She is given a 30 mL/kg bolus or 1700 mL. She is septic. Chest x-ray appears to show pneumonia the right lung. She was given 1 unit of blood. She is given a DuoNeb treatment as well as 25 mg of IV D50. 10 units of subcutaneous insulin and calcium gluconate were given. It is noted she is not alert enough to take Kayexalate. UA shows 1+ protein and many bacteria, however leukocyte esterase and nitrite were negative. There were 0-5 WBCs noted as well. Lactic acid is 1.8. Norepinephrine drip was started as was Levaquin 750 mg in D5W. She was found to have heme positive stool on her ED rectal exam. Blood cultures were also obtained. She carries a history of: Anemia, Hypothyroidism, HLD, Hypokalemia, Dementia, Mild cognitive impairment, Insomnia, glucoma, HTN, CAD, heart failure, GERD, RA , OA, lower back pain, visual hallucinations, lung ca, and TIA. She recently moved into [facility] and was being seen by Dr. Grullon in [place]. Code status is DNR. Her PCP is Dr. Walden at [facility] in [facility]. - Discharge Data Discharge Date: 02/27/17 (admit date 02/16/17) Discharge Disposition: DC/Tfer to SNF 03 Condition: Good - Discharge Diagnosis/Problem(s) (1) Anemia SNOMED Code(s): 742145464 ICD Code: D64.9 - ANEMIA, UNSPECIFIED Status: Chronic Priority: High Current Visit: Yes Qualifiers: Anemia type: other cause Other causes of anemia: other cause, not classified Qualified Code(s): D64.89 - Other specified anemias (2) Heart failure SNOMED Code(s): 34654052 ICD Code: I50.9 - HEART FAILURE, UNSPECIFIED Status: Resolved Priority: Medium Current Visit: Yes Qualifiers: Heart failure type: unspecified heart failure type Heart failure chronicity : acute on chronic Qualified Code(s): I50.9 - Heart failure, unspecified (3) Pneumonia SNOMED Code(s): 260532193 ICD Code: J18.9 - PNEUMONIA, UNSPECIFIED ORGANISM Status: Resolved Priority: High Current Visit: Yes Qualifiers: Pneumonia type: due to unspecified organism Laterality: right Lung location: middle lobe of lung Qualified Code(s): J18.1 - Lobar pneumonia, unspecified organism (4) Renal failure SNOMED Code(s): 99860142 ICD Code: N19 - UNSPECIFIED KIDNEY FAILURE Status: Resolved Priority: High Current Visit: Yes Qualifiers: Renal failure chronicity: acute Acute renal failure type: unspecified Qualified Code(s): N17.9 - Acute kidney failure, unspecified (5) Thrombocytopenia SNOMED Code(s): 978663523 ICD Code: D69.6 - THROMBOCYTOPENIA, UNSPECIFIED Status: Acute Priority: Medium Current Visit: Yes (6) Hyperkalemia SNOMED Code(s): 74719148 ICD Code: E87.5 - HYPERKALEMIA Status: Resolved Priority: High Current Visit: Yes (7) Hypotension SNOMED Code(s): 43327791 ICD Code: I95.9 - HYPOTENSION, UNSPECIFIED Status: Resolved Priority: High Current Visit: Yes Qualifiers: Hypotension type: unspecified hypotension type Qualified Code(s): I95.9 - Hypotension, unspecified (8) Septic shock SNOMED Code(s): 37006114 ICD Code: A41.9 - SEPSIS, UNSPECIFIED ORGANISM; R65.21 - SEVERE SEPSIS WITH SEPTIC SHOCK Status: Resolved Priority: High Current Visit: Yes (9) CAD (coronary artery disease) SNOMED Code(s): 00318277 ICD Code: I25.10 - ATHSCL HEART DISEASE OF [place] CORONARY ARTERY W/O ANG PCTRS Status: Chronic Priority: Low Current Visit: No Qualifiers: Coronary Disease-Associated Artery/Lesion type: [place] artery [place] vs. transplanted heart: [place] heart Associated angina: angina presence unspecified Qualified Code(s): I25.10 - Atherosclerotic heart disease of [place] coronary artery without angina pectoris (10) GERD (gastroesophageal reflux disease) SNOMED Code(s): 734184051 ICD Code: K21.9 - GASTRO-ESOPHAGEAL REFLUX DISEASE WITHOUT ESOPHAGITIS Status: Chronic Priority: Low Current Visit: No Qualifiers: Esophagitis presence: without esophagitis Qualified Code(s): K21.9 - Gastro -esophageal reflux disease without esophagitis (11) Mild cognitive impairment SNOMED Code(s): 682451408 ICD Code: G31.84 - MILD COGNITIVE IMPAIRMENT, SO STATED Status: Chronic Priority: Low Current Visit: No - Patient Summary/Data Operative Procedure(s) Performed: None Complications: None Consults: Consultations 02/16/17 18:15 Consult to Case Management [CONS] Routine Consult to Offc Spec [CONS] Routine Consult to Spiritual Care [CONS] Routine OT Evaluation and Treatment [CONS] Routine PT Evaluation and Treatment [CONS] Routine Respiratory Care Assess and Treatment [CONS] Routine 02/17/17 14:58 Consult to Speech Language Pathology [CABINET MOUNTER Evaluation and Treatment] [CONS] Routine Labs Pending at D/C: None Recommended Follow-up Testing/Procedures: Patient DC instructions: Will need outpatient hematology consult due to low platelet levels and general surgery/GI consult for anemia with occult + stools. Please follow up or talk with your Primary Doctor for possible t-dap immunization. Physical and occupational therapy to evaluate and treat. Labs at discretion of PCP, SNF provider to follow anemia, thrombocytopenia, CKD and potassium--recommend recheck in 5 days. Planned Operative Procedure(s) after DC: None Hospital Course: I/P: Acute: Pneumonia -Increasing SOB reported by [place] and family -Risk factors: Confusion from dementia (? aspiration), Hx/o lung ca with resection, Lives in specialty SNF -CXR in ED shows right middle lobe pneumonia -RT to assess and treat/IS -f/u cxr 02/18/17 - Parenchymal density in right upper lung likely persistant pneumonia -Oxygen as needed - titrate -Continue IV Levaquin/Vancomycin for pharmacy to dose - Vanco Discontinued -- switched to zosyn and levawuin -F/u CXR (02/23/17) - Continued consolidation is seen, Increased density but slightly smaller in size---improved -Slightly elevated WBC, although on steroid Renal failure---resolved/at baseline -Acute on chronic -Unsure of baseline - obtain old records -BUN 111-->69-->64-->72-->69, Creatinine 3.6-->1.3-->1.2-->1.3-->1.2, eGFR 12 -->39-->42-->39-->34 -Pharmacy to renally dose medications -Hold nephrotoxic drugs -Fluids - stopped --rec'd sepsis fluids initially -Renal ultrasound to rule out obstructive uropathy- chronic renal disease; atrophied bilateral kidneys -Monitor I&O; wagner in place - discontinued, voiding but incontinent -Balance need to diurese with worsening renal failure Heart failure--improved/at baseline -Acute on chronic -Unsure of baseline - obtain old records -Pro-BNP 2506-->7291-->1235 -Echo completed - EF 65-75 -Rales noted on lung sounds - hold fluids----resolved, lungs CTAB -Diurese as needed -Monitor Anemia, -Acute on chronic -Unsure of baseline - obtain old records -Hgb 7.9--> 11.7-->7.8-->8.4-->7.8, Hct 25.3-->36.7-->24.4, Heme + stool in ED, INR 1.15, APTT 43 -No reported hematemesis, melena, hematochezia. -S/p 2 units PRBCs transfusion, 2 more units given---4 total -Monitor H&H -Type and cross -Occult stool - positive; Surgical consult ordered -Recommend further eval as outpatient with colonoscopy if patient/family desire Thrombocytopenia -Plt count 119--> 120--> 119--> 87--> 52--> 43-->40 -Total bilirubin 1.1, haptoglobin <10, PT/INR 12.6/1.15, APTT 31, LDH 687 -Will need outpatient Hematology consult to further investigate cause Resolved: Septic shock--resolved -2/2 pneumonia Hyperkalemia, resolved Hypotension--resolved Thrombycytopenia--medication cf BM; MDS? Chronic: Hypothyroidism- stable HLD Hypokalemia Dementia w/o behavioral disturbance Mild cognitive impairment Insomnia Glaucoma CAD GERD RA Lower back pain OA Visual hallucinations Hx/o TIA Hx/o HI Hx/o lung neoplasm with lobectomy Plan: She is slowly improving clinically Continue current treatment Continue PT/OT/Spiritual care Swallow Eval Consult - Return to regular diet Routine AM labs GI Prophylaxis-- protonix DVT/PE prophylaxis: TEDS and ambulation as tolerated CM/SW for discharge planning---Plans for DC to SNF today, [place] with Dr. Grullon to assume care. Other orders as indicated above Will need outpatient Hematology consult due to low platelet levels and general surgery/GI consult for anemia with + occult stool. Code status: DNR. LOS>96 hours with severe infection/sepsis; Likely discharge 02/28/16 to [facility] - Patient Instructions Diet: Heart Healthy Diet Activity: As Tolerated (PT/OT to continue) Driving: Do Not Drive Showering/Bathing: May Shower Notify Provider of: Fever, Increased Pain, Nausea and/or Vomiting - Discharge Plan Prescriptions/Med Rec: Docusate Sodium [Colace] 100 mg PO BID PRN #60 cap PRN Reason: Constipation Home Medications: Home Meds Acetaminophen 1,000 mg PO TID 02/16/17 [History] Fluticasone Propionate [Flonase] 2 spray NASBOTH DAILY 02/16/17 [History] Folic Acid 1 mg PO DAILY 02/16/17 [History] Furosemide 40 mg PO DAILY 02/16/17 [History] LORazepam 0.5 mg PO Q6HR PRN 02/16/17 [History] Latanoprost [Xalatan 0.005% Ophth Soln] 1 drop EYEBOTH BEDTIME 02/16/17 [History ] Leflunomide [Arava] 20 mg PO DAILY 02/16/17 [History] Levothyroxine Sodium [Synthroid] 100 mcg PO DAILY 02/16/17 [History] Magnesium Hydroxide [Milk of Magnesia] 15 ml PO DAILY PRN 02/16/17 [History] Metoprolol Tartrate 25 mg PO BID 02/16/17 [History] Multivitamin [Multivitamins] 1 tab PO DAILY 02/16/17 [History] Omeprazole 40 mg PO DAILY 02/16/17 [History] Potassium Chloride 10 meq PO DAILY 02/16/17 [History] Simvastatin [Zocor] 20 mg PO BEDTIME 02/16/17 [History] Spironolactone [Aldactone] 25 mg PO DAILY 02/16/17 [History] busPIRone [Buspar] 10 mg PO TID 02/16/17 [History] risperiDONE [Risperdal] 0.5 mg PO TID 02/16/17 [History] Acetaminophen [Tylenol] 650 mg PO Q4H PRN tablet 02/27/17 [Rx] Docusate Sodium [Colace] 100 mg PO BID PRN #60 cap 02/27/17 [Rx] Polyethylene Glycol 3350 [MiraLAX] 17 gm PO DAILY PRN packet 02/27/17 [Rx] Patient Handouts: Acute Kidney Injury, Anemia, Nonspecific, Heart Failure, Easy -to-Read, Community-Acquired Pneumonia, Adult, [id number], Septic Shock Referrals: Osorio Walden MD [Primary Care Provider] - Pablito Grullon MD [Ordering Only Provider] - - Discharge Summary/Plan Comment DC Time >30 min.: Yes (45 min) - General Info Date of Service: 02/27/17 Admission Dx/Problem (Free Text: Septic Shock and PNA Did well over the weekend. VSS, labs stable. Plans to DC to [facility] today. Functional Status: Reports: Pain Controlled, Tolerating Diet, Ambulating, Urinating (incontinent) - Review of Systems General: Reports: Weakness (generalized but improved) HEENT: Reports: No Symptoms Pulmonary: Reports: No Symptoms. Denies: Shortness of Breath Cardiovascular: Reports: No Symptoms. Denies: Chest Pain Gastrointestinal: Reports: No Symptoms. Denies: Abdominal Pain, Diarrhea, Nausea, Vomiting Neurological: Reports: Confusion Psychiatric: Reports: Confusion - Patient Data Vitals - Most Recent: Last Vital Signs Temp 95.9 F 02/27/17 03:27 Pulse 77 02/27/17 03:27 Resp 18 02/27/17 03:27 BP 122/89 02/27/17 03:27 Pulse Ox 92 L 02/27/17 03:27 Weight - Most Recent: 124 lb 9.6 oz I&O - Last 24 hours: Intake & Output 02/26/17 02/26/17 02/27/17 14:59 22:59 06:59 Intake Total 100 200 300 Balance 100 200 300 Lab Results - Last 24 hrs: Laboratory Results - last 24 hr 02/26/17 02/26/17 02/26/17 Range/Units 11:30 16:14 17:06 POC Glucose 131 H 165 H 198 H (83-110) mg/dL Med Orders - Current: Current Medications Acetaminophen (Tylenol) 650 mg PO Q4H PRN PRN Reason: Pain (Mild 1-3)/fever Hydrocodone Bitart/Acetaminophen (Soso 325-5 Mg) 1 tab PO Q4H PRN PRN Reason: Pain (moderate 4-6) Albuterol/Ipratropium (Duoneb 3.0-0.5 Mg/3 Ml) 3 ml NEB Q4H PRN PRN Reason: Shortness Of Breath/wheezing Last Admin: 02/21/17 11:10 Dose: 3 ml Bisacodyl (Dulcolax) 5 mg PO DAILY PRN PRN Reason: Constipation Dextrose/Water (Dextrose 50% In Water) 50 ml IVPUSH ASDIRECTED PRN PRN Reason: Hypoglycemia Last Admin: 02/16/17 22:22 Dose: 50 ml Docusate Sodium (Colace) 100 mg PO BID PRN PRN Reason: Constipation Last Admin: 02/23/17 06:48 Dose: 100 mg Famotidine (Pepcid) 20 mg PO BEDTIME [facility] Last Admin: 02/26/17 22:09 Dose: 20 mg Flunisolide (Nasalide Nasal [place]) 0 ml MANNY BID [facility] Last Admin: 02/26/17 22:10 Dose: 2 spray Folic Acid (Folic Acid) 1 mg PO DAILY [facility] Last Admin: 02/26/17 09:08 Dose: 1 mg Hydralazine HCl (Apresoline) 10 mg IVPUSH Q4H PRN PRN Reason: Hypertension Last Admin: 02/25/17 23:48 Dose: 10 mg Hydrocortisone Sodium Succinate (Solu-Cortef) 50 mg IV Q24H [facility] Last Admin: 02/26/17 12:59 Dose: 50 mg Hydromorphone HCl (Dilaudid) 0.25 mg IVPUSH Q2H PRN PRN Reason: Pain (severe 7-10) Promethazine HCl 6.25 mg/ (Sodium Chloride) 50.25 mls @ 100 mls/hr IV Q6H PRN PRN Reason: Nausea/Vomiting Levofloxacin/Dextrose 750 mg/ (Premix) 150 mls @ 100 mls/hr IV Q48H [facility] Last Admin: 02/26/17 16:23 Dose: Not Given Piperacillin Sod/Tazobactam (Sod 4.5 gm/ Sodium Chloride) 100 mls @ 25 mls/hr IV Q8H [facility] Last Admin: 02/27/17 00:16 Dose: 25 mls/hr Insulin Aspart (Novolog) 0 unit SUBCUT TIDMEALS [facility] PRN Reason: Protocol Last Admin: 02/26/17 17:54 Dose: 1 unit Latanoprost (Xalatan 0.005% Ophth Soln) 0 ml EYEBOTH BEDTIME [facility] Last Admin: 02/26/17 22:09 Dose: 1 drop Levothyroxine Sodium (Synthroid) 100 mcg PO DAILY [facility] Last Admin: 02/26/17 09:08 Dose: 100 mcg Lorazepam (Ativan) 0.25 mg IV Q6H PRN PRN Reason: Anxiety Metoprolol Tartrate (Lopressor) 5 mg IVPUSH Q4H PRN PRN Reason: Tachycardia Last Admin: 02/18/17 23:55 Dose: 5 mg Metoprolol Tartrate (Lopressor) 25 mg PO BID [facility] Last Admin: 02/26/17 22:09 Dose: Not Given Ondansetron HCl (Zofran) 4 mg IV Q6H PRN PRN Reason: Nausea/Vomiting Leflunomide 20mg 0 each PO DAILY [facility] Last Admin: 02/26/17 09:09 Dose: Not Given Polyethylene Glycol (Miralax) 17 gm PO DAILY PRN PRN Reason: Constipation Last Admin: 02/23/17 09:57 Dose: 17 gm Risperidone (Risperidal) 0.5 mg PO TID [facility] Last Admin: 02/26/17 22:09 Dose: 0.5 mg Senna/Docusate Sodium (Senna Plus) 1 tab PO BID PRN PRN Reason: Constipation Sodium Chloride (Saline Flush) 10 ml FLUSH ASDIRECTED PRN PRN Reason: Keep Vein Open Last Admin: 02/16/17 13:29 Dose: 10 ml Discontinued Medications Albuterol/Ipratropium (Duoneb 3.0-0.5 Mg/3 Ml) 3 ml NEB ONETIME ONE Stop: 02/16/17 12:59 Last Admin: 02/16/17 13:15 Dose: 3 ml Bisacodyl (Dulcolax) 10 mg RECTAL ONETIME ONE Stop: 02/19/17 18:16 Last Admin: 02/19/17 18:42 Dose: 10 mg Bumetanide (Bumex) 0.5 mg IVPUSH ONETIME ONE Stop: 02/16/17 22:29 Last Admin: 02/16/17 22:53 Dose: 0.5 mg Calcium Carbonate/Glycine (Tums) 1,000 mg PO ONETIME ONE Stop: 02/16/17 22:28 Last Admin: 02/17/17 00:20 Dose: Not Given Calcium Gluconate (Calcium Gluconate) 1 gm IVPUSH ONETIME ONE Stop: 02/16/17 14:46 Last Admin: 02/16/17 15:17 Dose: 1 gm Dextrose/Water (Dextrose 50% In Water) 50 ml IVPUSH ONETIME ONE Stop: 02/16/17 14:45 Last Admin: 02/16/17 15:12 Dose: 50 ml Famotidine (Pepcid) 20 mg IVPUSH BEDTIME [facility] Last Admin: 02/20/17 20:17 Dose: 20 mg Fluticasone Propionate (Flovent Hfa 110 Mcg) 0 gm INH DAILY [facility] Last Admin: 02/21/17 13:11 Dose: Not Given Furosemide (Lasix) 10 mg IVPUSH NOW ONE Stop: 02/18/17 08:49 Last Admin: 02/18/17 10:10 Dose: 10 mg Furosemide (Lasix) 20 mg IVPUSH NOW ONE Stop: 02/23/17 07:01 Last Admin: 02/23/17 06:49 Dose: 20 mg Furosemide (Lasix) 20 mg IVPUSH NOW ONE Stop: 02/23/17 17:01 Last Admin: 02/23/17 18:33 Dose: 20 mg Furosemide (Lasix) 20 mg IVPUSH NOW ONE Stop: 02/23/17 21:01 Last Admin: 02/23/17 23:34 Dose: 20 mg Hydrocortisone Sodium Succinate (Solu-Cortef) 100 mg IVPUSH Q8H [facility] Stop: 02/20/17 07:00 Last Admin: 02/20/17 02:07 Dose: 100 mg Hydrocortisone Sodium Succinate (Solu-Cortef) 50 mg IV Q8H [facility] Last Admin: 02/22/17 10:21 Dose: 50 mg Hydromorphone HCl (Dilaudid) 0.25 mg IVPUSH Q2H PRN PRN Reason: Pain (severe 7-10) Lactated Ringer's (Ringers, Lactated) 1,000 mls @ 999 mls/hr IV .BOLUS ONE Stop: 02/16/17 14:10 Last Admin: 02/16/17 13:29 Dose: 999 mls/hr Sodium Chloride (Normal Saline) 750 mls @ 1,000 mls/hr IV .BOLUS ONE Stop: 02/16/17 14:15 Last Admin: 02/16/17 15:30 Dose: 1,000 mls/hr Levofloxacin/Dextrose 750 mg/ (Premix) 150 mls @ 100 mls/hr IV ONETIME ONE Stop: 02/16/17 15:24 Last Admin: 02/16/17 14:11 Dose: 100 mls/hr Norepinephrine Bitartrate 4 mg (/ Dextrose/Water) 250 mls @ 7.5 mls/hr IV TITRATE DEMETIR; 2 MCG/MIN PRN Reason: Protocol Last Titration: 02/17/17 07:45 Dose: 0 mcg/min, 0 mls/hr Sodium Chloride (Normal Saline) Confirm Administered Dose 1,000 mls @ as directed .ROUTE .[email or web address] ONE Stop: 02/16/17 14:07 Last Admin: 02/16/17 15:30 Dose: Not Given Levofloxacin/Dextrose (Levaquin In D5w 750 Mg/150 Ml) Confirm Administered Dose 150 mls @ as directed IV .[email or web address] ONE Stop: 02/16/17 14:08 Last Admin: 02/16/17 15:29 Dose: Not Given Sodium Chloride (Normal Saline) Confirm Administered Dose 1,000 mls @ as directed .ROUTE .[facility] ONE Stop: 02/16/17 15:28 Last Admin: 02/16/17 15:30 Dose: Not Given Vancomycin HCl 1 gm/Vancomycin HCl 500 mg/ Sodium Chloride 500 mls @ 125 mls/ hr IV Q24H [facility] Stop: 02/16/17 21:59 Last Admin: 02/16/17 18:26 Dose: 125 mls/hr Levofloxacin/Dextrose 500 mg/ (Premix) 100 mls @ 66.667 mls/hr IV Q48H [facility] Last Admin: 02/20/17 22:06 Dose: 66.667 mls/hr Sodium Chloride (Normal Saline) 1,000 mls @ 50 mls/hr IV ASDIRECTED [facility] Dextrose/Sodium Chloride (Dextrose 5%-Normal Saline) 1,000 mls @ 15 mls/hr IV ASDIRECTED [facility] Last Admin: 02/16/17 22:58 Dose: 15 mls/hr Magnesium Sulfate (Magnesium Sulfate 2 Gm In Water 50 Ml) 50 mls @ 50 mls/hr IV ONETIME ONE Stop: 02/17/17 00:14 Last Admin: 02/17/17 00:27 Dose: 50 mls/hr Vancomycin HCl 1 gm/ Sodium (Chloride) 250 mls @ 166.667 mls/hr IV Q48H [facility] Last Admin: 02/20/17 19:53 Dose: 166.667 mls/hr Dextrose/Water (Dextrose 5% In Water) 1,000 mls @ 75 mls/hr IV ASDIRECTED [facility] Last Admin: 02/21/17 17:47 Dose: 75 mls/hr Magnesium Sulfate 2 gm/ Premix 50 mls @ 25 mls/hr IV ONETIME ONE Stop: 02/20/17 18:01 Last Admin: 02/20/17 16:11 Dose: 25 mls/hr Vancomycin HCl 500 mg/ Sodium (Chloride) 250 mls @ 166.667 mls/hr IV ONETIME ONE Stop: 02/20/17 22:29 Last Admin: 02/20/17 22:04 Dose: 166.667 mls/hr Vancomycin HCl 1 gm/Vancomycin HCl 500 mg/ Sodium Chloride 500 mls @ 333 mls/ hr IV Q48H [facility] Sodium Chloride (Normal Saline) 250 mls @ 25 mls/hr IV ASDIRECTED [facility] Last Admin: 02/23/17 15:42 Dose: 25 mls/hr Piperacillin Sod/Tazobactam (Sod 4.5 gm/ Sodium Chloride) 100 mls @ 200 mls/hr IV ONETIME ONE Stop: 02/24/17 16:29 Last Admin: 02/24/17 17:23 Dose: 200 mls/hr Insulin Aspart (Novolog) 0 unit SUBCUT Q6HR [facility] PRN Reason: Protocol Last Admin: 02/20/17 17:59 Dose: 1 units Insulin Human Regular (Humulin R) 10 unit SUBCUT BIDAC [facility] PRN Reason: Protocol Last Admin: 02/16/17 15:10 Dose: 10 unit Magnesium Sulfate (Pharmacy To Dose - Magnesium Replacement) 1 dose .XX ASDIRECTED [facility] Norepinephrine Bitartrate (Levophed) Confirm Administered Dose 4 mg .ROUTE .[facility]- [facility] ONE Stop: 02/17/17 04:45 Last Admin: 02/17/17 05:05 Dose: Not Given Pantoprazole Sodium (Protonix Iv) 40 mg IVPUSH ONETIME ONE Stop: 02/16/17 18:12 Last Admin: 02/16/17 19:03 Dose: 40 mg Potassium Chloride (Pharmacy To Dose - Potassium Replacement) 1 dose .XX ASDIRECTED [facility] Potassium Chloride (Klor-Con M20) 40 meq PO ONETIME ONE Stop: 02/23/17 13:55 Last Admin: 02/23/17 14:25 Dose: 40 meq Sodium Polystyrene Sulfonate (Kayexalate) 45 gm RECTAL NOW ONE Stop: 02/16/17 18:22 Last Admin: 02/16/17 18:52 Dose: 45 gm Sodium Polystyrene Sulfonate (Kayexalate) 15 gm PO ONETIME ONE Stop: 02/17/17 16:04 Last Admin: 02/17/17 16:38 Dose: 15 gm Vancomycin HCl (Pharmacy To Dose - Vancomycin) 1 dose .XX ASDIRECTED DEMET[facility] - Exam Quality Assessment: Reports: DVT Prophylaxis General: Reports: Alert, Cooperative, No Acute Distress HEENT: Reports: Pupils Equal, EOMI, Mucous Membr. Moist/[place] Neck: Reports: Supple Lungs: Reports: Clear to Auscultation, Normal Respiratory Effort, Decreased Breath Sounds (bases) Cardiovascular: Reports: Regular Rate, Regular Rhythm GI/Abdominal Exam: Normal Bowel Sounds, Soft, Non-Tender. No: Guarding, Rigid, Rebound, Tender (Female) Exam: Deferred, Vaginal Tears Back Exam: Reports: Normal Inspection Extremities: Normal Inspection, No Pedal Edema, Normal Capillary Refill Neurological: Reports: No New Focal Deficit, Other (pleasantly confused) Psy/Mental Status: Reports: Alert, Normal Affect *Q Meaningful Use (DIS) - VTE *Q VTE Criteria *Q: - Stroke *Q Stroke Criteria *Q: - AMI *Q AMI Criteria *Q:
[2017-02-27] MEDS: Insulin Aspart 100 Units/ML 3 ML Pen SUBCUT SCH (07:37)
[2017-02-27] MEDS: Metoprolol Tartrate 25 MG Tab PO SCH (08:22)
[2017-02-27] MEDS: Levothyroxine 100 MCG Tab PO SCH (08:23)
[2017-02-27] MEDS: risperiDONE 0.5 MG Tab PO SCH (08:23)
[2017-02-27] MEDS: Folic Acid 1 MG Tab PO SCH (08:23)
[2017-02-27] MEDS ORDERED: Fluconazole 100 MG Tab PO SCH (09:00)
[2017-02-27] MEDS ORDERED: Saccharomyces Boulardii (Probiotic) 250 MG Cap PO SCH (09:00)
[2017-02-27] MEDS ORDERED: Betamethasone Dipropionate/Clotrimazole 0.05-1% Crm 15 GM Tube TOP SCH (09:00)
[2017-02-27] MEDS ORDERED: Pneumococcal Polyvalent-23 Vaccine 0.5 ML SDV IM ONE (09:46)
== END 2017-02-27 11:25 | DRG 871 ==
LOC: JD.ED 12:50 → UNDOADMIN 15:42 → JD.ICU 15:42 → JD.MS 02-18 07:12 → UNDOADMIN 02-18 07:12 → JD.ICU 02-18 07:12 → UNDODISIN 02-27 11:25
PROVIDERS: ADMIT Internal Medicine; ATTEND Internal Medicine
DX: A41.9 Sepsis, unspecified organism (principal); J18.9 Pneumonia, unspecified organism; N17.9 Acute kidney failure, unspecified; E87.2 Acidosis; D64.9 Anemia, unspecified; I13.0 Hypertensive heart and chronic kidney disease with heart failure and stage 1 through stage 4 chronic kidney disease, or unspecified chronic kidney disease; E87.5 Hyperkalemia; I95.9 Hypotension, unspecified; D64.89 Other specified anemias; D69.6 Thrombocytopenia, unspecified; E03.9 Hypothyroidism, unspecified; E78.5 Hyperlipidemia, unspecified; F10.97 Alcohol use, unspecified with alcohol-induced persisting dementia; G31.84 Mild cognitive impairment of uncertain or unknown etiology; F51.01 Primary insomnia; H40.9 Unspecified glaucoma; I25.10 Atherosclerotic heart disease of native coronary artery without angina pectoris; I50.9 Heart failure, unspecified; K21.9 Gastro-esophageal reflux disease without esophagitis; M06.9 Rheumatoid arthritis, unspecified; M19.90 Unspecified osteoarthritis, unspecified site; M54.5 Low back pain; R44.1 Visual hallucinations; Z85.118 Personal history of other malignant neoplasm of bronchus and lung; N18.9 Chronic kidney disease, unspecified; Z86.73 Personal history of transient ischemic attack (TIA), and cerebral infarction without residual deficits; I25.2 Old myocardial infarction; Z66 Do not resuscitate; G30.9 Alzheimer's disease, unspecified; F02.80 Dementia in other diseases classified elsewhere, unspecified severity, without behavioral disturbance, psychotic disturbance, mood disturbance, and anxiety; Z88.2 Allergy status to sulfonamides; Z88.8 Allergy status to other drugs, medicaments and biological substances; Z79.899 Other long term (current) drug therapy
CPT/HCPCS: 36415; 51702; 71010; 80053; 81001; 83605; 83880; 84484; 85025; 85610; 85730; 86140; 86850; 86900; 86901; 86922 ×2; 87040 ×2; 87804 ×2; 93005; 94640; 96361; 96365; 96366; 96372; 96375; 99285; J0610; J1817; J1956; J7040; J7050; J7060 ×2; J7120; P9016; 36430; 71046; 71046-26; 76770; 76770-26; 80048; 80202; 82247; 82272; 82533; 82962; 83010; 83540; 83615; 83735; 84145; 84466; 85018; 87641; 92610-GN; 93306; 94760; 94761; 97110-GP; 97116-GP; 97162-GP; 97167-GO; 97530-GO; 97530-GP; 99284; A9270-GY; C9113; J0360; J1720; J1815-GY; J1940; J2543; J3370; J3475; J3490; J7030; J7042